=== PATIENT | male | born 1995 | race Caucasian/White ===

== ENCOUNTER 2022-12-25 16:40 | Emergency (ER) | payer MEDICAID, SELFPAY ==
[2022-12-25] VITALS (9 sets, daily range): BP systolic 123–147; BP diastolic 77–115; PULSE 79–129; RESP 16–18; TEMP 36.7; O2SAT 94–100; BMI 34.4
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
--- NOTE | 2022-12-25 16:59 | XRR_ITS ---
PROCEDURE INFORMATION: Exam: XR Chest Exam date and time: 12/25/2022 5:14 PM Age: 27 years old Clinical indication: Fever; Additional info: Fever tachycardia TECHNIQUE: Imaging protocol: Radiologic exam of the chest. Views: 1 view. COMPARISON: No relevant prior studies available. FINDINGS: Lungs: Minimal left basilar atelectasis infiltrate. The right lung is clear. Pleural spaces: Unremarkable. No pleural effusion. No pneumothorax. Heart/Mediastinum: Unremarkable. No cardiomegaly. Bones/joints: Moderate left convex scoliosis. XR/XR chest 1V portable [id number] IMPRESSION: Minimal left basilar atelectasis or infiltrate. Correlate for possible pneumonia.
--- NOTE | 2022-12-25 16:59 | CTR_ITS ---
PROCEDURE INFORMATION: Exam: CT Head Without Contrast Exam date and time: 12/25/2022 5:17 PM Age: 27 years old Clinical indication: Other: Ble numbness, weakness, fever headache TECHNIQUE: Imaging protocol: Computed tomography of the head without contrast. Radiation optimization: All CT scans at this facility use at least one of these dose optimization techniques: automated exposure control; mA and/or kV adjustment per patient size (includes targeted exams where dose is matched to clinical indication); or iterative reconstruction. REPORTING DATA: Count of CT and Cardiac NM exams in prior 12 months: This patient has received 0 known CTs and 0 known cardiac nuclear medicine studies in the 12 months prior to the current study. COMPARISON: No relevant prior studies available. RADIATION DOSE METRICS: Total DLP (mGy-cm): 302 FINDINGS: Brain: No acute infarct. No hemorrhage. Unremarkable white matter for age. No mass effect. Cerebral ventricles: No ventriculomegaly. Paranasal sinuses: No significant inflammation. No fluid levels. Mastoid air cells: Visualized mastoid air cells are well aerated. Bones/joints: Unremarkable. No acute fracture. Soft tissues: Unremarkable. CT/CT head wo con* [id number] IMPRESSION: No acute intracranial abnormality.
[2022-12-25] MEDS: morphine 4 mg/mL SDV 1 mL IVP (17:11)
[2022-12-25 17:16] LABS: Basophils % 0.2 %; Eosinophils # 0.2 10^3/uL (0.0-0.8); Eosinophils % 2.7 %; Hematocrit 42.8 % (42.0-52.0); Lymphocytes % 32.2 %; Mean Corpuscular HGB Conc 30.4 g/dL (30.0-36.0); Mean Corpuscular Hemoglobin 25.3 pg (28.0-34.0); Mean Corpuscular Volume 83.3 fl (80-94); Mean Platelet Volume 9.1 fL (7.4-10.4); Monocytes # 0.4 10^3/uL (0.2-0.9); Monocytes % 6.5 %; Neutrophils % 58.2 %; Nucleated Red Blood Cells % 0 %; Platelet Count 389 10^3/cmm (130-400); Red Blood Count 5.14 10^6/uL (4.1-5.3); Red Cell Distribution Width 15.5 % (12.1-15.1); White Blood Count 6.3 10^3/uL (4.0-10.0)
[2022-12-25] MEDS: sodium chloride 0.9% 2,190 ML 2190 ML IV (17:17)
--- NOTE | 2022-12-25 17:31 | MRR_ITS ---
PROCEDURE INFORMATION: Exam: MR Thoracic Spine Without Contrast Exam date and time: 12/25/2022 6:32 PM Age: 27 years old Clinical indication: Pain in thoracic spine; Prior surgery; Surgery date: 1-6 months; Surgery type: L spne several last 10/2022; Additional info: Back pain, loss of sensation and increased weakness, complex history of multiple surgeries and complications, TECHNIQUE: Imaging protocol: Magnetic resonance imaging of the thoracic spine without contrast. COMPARISON: MR lumbar spine wo con* [id number] 12/25/2022 6:14 PM FINDINGS: Bones/joints: The thoracic spine straightened. There are laminectomy changes present T5-T8 and at the T11-L1 levels. No suspicious marrow signal abnormality is seen. Lower thoracic Schmorl's nodes are present. There is edema like signal in the laminectomy beds likely from subacute denervation changes. Spinal cord: Suspected T2 cord signal abnormality at the T5 level and again at the T6-T7 level best seen on series 501, image 7, difficult to further assess on the axial imaging due to motion. Probable mild cord volume loss is seen at these levels. T1-T2: No significant disc bulge or herniation. No severe spinal canal stenosis. No significant neural foraminal narrowing. T2-T3: At T2-3 there is diffuse disc bulging with mild stenosis of the spinal canal. Patent neural foramen. T3-T4: T3-T4 diffuse disc bulging with moderate stenosis of the spinal canal mild narrowing of both neural foramen. T4-T5: T4-T5 right-sided paracentral focal disc protrusion is seen with mild stenosis of the spinal canal. T5-T6: T5-6 right-sided paracentral focal disc protrusion is seen abutting the ventral cord mildly narrowing the spinal canal despite laminectomy. The neural foramina are mildly narrowed. T6-T7: T6-T7 central focal disc protrusion is seen abutting the ventral cord with mild stenosis of the spinal canal despite laminectomy. The neural foramina are mildly narrowed. T7-T8: T7-T8 minimal central focal disc protrusion is seen without significant stenosis. T8-T9: T8-T9 minimal central focal disc protrusion is seen with mild stenosis of the spinal canal and bilateral neural foramen. T9-T10: T9-10 moderate narrowing of both neural foramina due to facet arthrosis. Spinal canal patent. T10-T11: T10-11 there is diffuse disc bulging and facet arthrosis with mild stenosis of the spinal canal and moderate narrowing of both neural foramina. T11-T12: At T11-12 there is a central focal disc protrusion with mild stenosis of the spinal canal despite laminectomy. T12-L1: No significant disc bulge or herniation. No severe spinal canal stenosis. No significant neural foraminal narrowing. Soft tissues: Unremarkable. Other findings: The study is degraded by motion. MR/MR thoracic spin wo con* [id number] IMPRESSION: 1. Laminectomy changes at the T5-T8 and T11-L1 levels. Moderate T3-T4 spinal canal stenosis above the surgical level with mild multilevel spinal canal narrowing at the levels of surgery, as described. 2. There is minimal suspected focal T2 cord signal abnormality at T5 and at T6-T7 suspicious for myelomalacia.
--- NOTE | 2022-12-25 17:31 | MRR_ITS ---
PROCEDURE INFORMATION: Exam: MR Lumbar Spine Without Contrast Exam date and time: 12/25/2022 6:14 PM Age: 27 years old Clinical indication: Low back pain; Prior surgery; Surgery date: 1-6 months; Surgery type: L spine several last 10/2022; Additional info: Back pain, leg numbness and weakness, history of multiple back surgeries with complications, new TECHNIQUE: Imaging protocol: Magnetic resonance imaging of the lumbar spine without contrast. COMPARISON: No relevant prior studies available. FINDINGS: Bones/joints: There are Schmorl's nodes present in the lower thoracic/upper lumbar spine without significant vertebral body height loss. The spinal alignment is near anatomic. There are laminectomy changes present at T11-12, L1 and L3-L5. No suspicious marrow signal abnormality. Spinal cord: Visualized cord, conus medullaris and cauda equina are unremarkable without compression. Nerves: There is edema like signal in the dorsal paraspinal musculature which is likely related to subacute denervation changes. T11-T12: At T11-12 there is a central focal disc protrusion with mild stenosis of the spinal canal despite laminectomy. T12-L1: At T12-L1 there is central focal disc protrusion measuring 8 mm AP by 9 mm transverse with associated moderate stenosis of the spinal canal. L1-L2: L1-L2 diffuse disc bulging with superimposed central focal disc protrusion causing severe narrowing of the spinal canal. There is also facet arthrosis on both sides with severe narrowing of both neural foramina. L2-L3: L2-L3 bilateral facet arthrosis and minimal saddle shaped disc bulging is seen without stenosis of the spinal canal. There is no significant neural foraminal narrowing. L3-L4: L3-L4 diffuse disc bulging and degenerative facet joint hypertrophy is seen with severe stenosis of the spinal canal. There is also severe narrowing of both neural foramen. 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 L4-L5: L4-L5 diffuse disc bulging with left-sided subarticular focal disc protrusion measuring 8 mm AP x 1.6 cm transverse causes severe stenosis of the spinal canal and compression of the left descending L5 nerve root. There is also severe narrowing of the left greater than right neural foramen. L5-S1: L5-S1 minimal diffuse disc bulging and facet arthrosis is seen without stenosis of the spinal canal. There is mild narrowing of the left neural foramen. Soft tissues: Unremarkable. MR/MR lumbar spine wo con* [id number] IMPRESSION: 1. Multilevel degenerative disc disease with T11-12, L1, and L3-L5 laminectomies. There is moderate T12-L1, severe L1-L2 and severe L4-L5 spinal canal stenosis present with multilevel neural foraminal narrowing, as described. 2. The left descending L5 nerve root is also compressed by disc material in the lateral recess.
[2022-12-25 17:46] LABS: NT Pro B Type Natriuretic Pept 36 pg/mL (0-125); Procalcitonin 0.02 ng/mL (0-0.5); Thyroid Stimulating Hormone 0.49 uIU/mL (0.27-4.20)
[2022-12-25 17:48] LABS: Add Urine Microscopic? YES; Bacteria Urine TRACE /hpf; Bilirubin Urine Neg (Negative); Blood Urine 2+ (Negative); Glucose Urine UA Norm (Normal); Ketones Urine 1+ (Negative); Leukocyte Esterase Urine 2+ (Negative); Mucus Urine TRACE /hpf; Nitrate Urine Negative (Negative); Protein Urine 1+ (Negative); RBC Urine 0-4 /hpf (0-2); Squamous Epithelial Cell Urine 0-4 /hpf (0-5); Urine Appearance Cloudy (CLEAR); Urine Color Yellow (Yellow); Urobilinogen Urine Norm (Negative); WBC Urine 40-55 /hpf (0-5); pH Urine 6.5 (5-7)
[2022-12-25 17:49] LABS: Add Urine Culture? Yes; Calcium Oxalate Crystals Urine 25-40 /hpf
[2022-12-25 17:57] LABS: Alanine Aminotransferase 12 U/L (0-41); Albumin Level 4.4 g/dL (3.5-5.2); Alkaline Phosphatase 80 U/L (40-130); Anion Gap 15.6 (5-19); Aspartate Amino Transferase 14 U/L (0-40); Blood Urea Nitrogen 9 mg/dL (6-20); C Reactive Protein 4.2 mg/L (0.0-4.9); Calcium 9.2 mg/dL (8.5-10.5); Carbon Dioxide 26 mmol/L (22-29); Chloride 102 mmol/L (98-107); Globulin 3.8 g/dL (1.3-4.6); Glomerular Filtration Rate 196.6 mL/min (90-130); Glucose 90 mg/dL (65-115); Osmolality Calculated 288 mOsm/kg (285-295); Potassium 3.6 mmol/L (3.5-5.1); Sodium 140 mmol/L (136-145); Total Bilirubin 0.6 mg/dL (0.15-1.2); Total Protein 8.2 g/dL (6.6-8.7)
[2022-12-25 18:05] LABS: SARS Covid-2 Antigen negative (Negative)
--- NOTE | 2022-12-25 18:09 | PC.NURSE ---
PT taken to MRI @1809
[2022-12-25] MEDS: HYDROmorphone 1 mg/mL INJ 1 mL IVP (19:53)
--- NOTE | 2023-01-12 15:15 | DCPLANNER ---
late entry - patient called due to no primary care physician - no answer at this time.
== END 2022-12-25 22:09 | disposition short-term general hospital (02) ==
PROVIDERS: Emergency Medicine; Emergency Provider Emergency Medicine
DX: M48.061 Spinal stenosis, lumbar region without neurogenic claudication (principal); M48.04 Spinal stenosis, thoracic region; Z20.822 Contact with and (suspected) exposure to COVID-19
CPT/HCPCS: 36415; 70450; 71045; 72146; 72148; 80053; 81001; 83605; 83880; 84145; 84443; 85025; 86140; 87040; 87086; 87426; 96361; 96374; 96375; 99285; J1170; J2270; J7030

== ENCOUNTER 2023-01-02 20:32 | Emergency (ER) | payer MEDICAID, SELFPAY ==
[2023-01-02 20:33] VITALS: BP 159/107; PULSE 98; RESP 18; TEMP 37.1; O2SAT 100; BMI 33.7
[2023-01-02 20:40] VITALS: BP 159/107; PULSE 100; RESP 16; O2SAT 100
--- NOTE | 2023-01-02 20:40 | ED_ITS ---
HPI - Abdominal Pain General: Chief Complaint: Urogenital-Male Stated Complaint: possible UTI Time Seen by Provider: 01/02/23 20:33 Source: patient and EMS Mode of arrival: EMS Limitations: no limitations History of Present Illness: 27-year-old male who has had extensive history and surgeries to his low back he had recently was admitted at [facility] this week he states he supposed to follow-up with a spine surgeon he has had a Nguyen for over a month he feels like it is getting blocked with sediment and has had little output having some pain he denies any fevers states the pain is suprapubic in nature denies any increased weakness or increased back pain at this point. Associated Symptoms: Denies chills, diarrhea, fever(s), nausea and vomiting Review of Systems Const: Denies: fever(s), chills, body aches or change in appetite ENMT: Denies: throat pain or dental pain Card: Denies: chest pain Resp: Denies: dyspnea GI: Reports: abdominal pain; Denies: nausea, vomiting or diarrhea Musc: Denies: neck pain Skin/Breast: Denies: rash Neuro: Denies: headache(s) Physical Exam Const: COMMON NORMALS: patient oriented x3 HENMT: COMMON NORMALS: normocephalic and atraumatic HEAD & SCALP: norm ocephalic and atraumatic Eye: COMMON NORMALS: conjunctivae normal CONJUNCTIVA: Yes conjunctivae normal Neck/C-Spine: COMMON NORMALS: supple Lymph: LYMPHATIC: no lymphadenopathy noted Chest: COMMONS NORMALS: normal inspection of the chest and normal palpation of entire chest wall Resp: COMMON NORMALS: normal respiratory effort and clear to auscultation bilaterally EFFORT & INSPECTION: Yes able to speak in complete sentences AUSCULTATION: clear to auscultation bilaterally Cardio: COMMON NORMALS: regular rate and regular rhythm RATE: regular rate RHYTHM: regular rhythm GI: OTHER: Nguyen in place some mild lower abdominal tenderness no rebound tenderness no distention : COMMON NORMALS: Yes no CVA tenderness BLADDER/KIDNEY EXAM: Yes no CVA tenderness Back/Pelvis: COMMON NORMALS: no CVA tenderness Extremity: COMMON NORMALS: normal to inspection Neuro: COMMON NORMALS: patient oriented x3 Psych: COMMON NORMALS: mental status grossly normal Skin: COMMON NORMALS: no rashes or lesions noted GENERAL SKIN EXAM: no rashes or lesions noted Course Vital Signs: Vital signs: Vital Signs Temperature 98.8 F 01/02/23 20:33 Pulse Rate 100 01/02/23 22:04 Respiratory Rate 18 01/02/23 22:04 Blood Pressure 141/88 01/02/23 22:04 Pulse Oximetry 100 01/02/23 22:04 Oxygen Delivery Me thod Room Air 01/02/23 22:04 MDM - Abdominal Pain Medical Decision Making Patient presents here with abdominal pain pain at the Nguyen has Nguyen been in for a month he does have a slight UTI his abdominal exam is benign here his white count is normal no signs of acute surgical abdomen he feels improved here he is stable for discharge he is to follow-up with PCP and return if worsening he understands agrees to plan. Medical Records I reviewed the patient's medical records. Lab Data I reviewed the patient's lab results. 01/02/23 20:43 01/02/23 20:43 Labs/Radiology: Laboratory Results WBC 7.8 10^3/uL (4.0-10.0) 01/02/23 20:43 RBC 5.74 10^6/uL (4.1-5.3) H 01/02/23 20:43 Hgb 14.6 g/dL (11.7-16.6) 01/02/23 20:43 Hct 46.0 % (42.0-52.0) 01/02/23 20:43 MCV 80.1 fl (80-94) 01/02/23 20:43 MCH 25.4 pg (28.0-34.0) L 01/02/23 20:43 MCHC 31.7 g/dL (30.0-36.0) 01/02/23 20:43 RDW 15.4 % (12.1-15.1) H 01/02/23 20:43 Plt Count 380 10^3/cmm (130-400) 01/02/23 20:43 MPV 9.0 fL (7.4-10.4) 01/02/23 20:43 Neut % (Auto) 51.3 % 01/02/23 20:43 Lymph % (Auto) 37.8 % 01/02/23 20:43 [place] % (Auto) 8.3 % 01/02/23 20:43 Eos % (Auto) 1.9 % 01/02/23 20:43 Baso % (Auto) 0.3 % 01/02/23 20:43 Neut # (Auto) 4.01 10^3/uL (1.8-7.7) 01/02/23 20:43 Lymph # (Auto) 3.0 10^3/uL (0.8-4.8) 01/02/23 20:43 [place] # (Auto) 0.7 10^3/uL (0.2-0.9) 01/02/23 20:43 Eos # (Auto) 0.2 10^3/uL (0.0-0.8) 01/02/23 20:43 Baso # (Auto) 0.0 10^3/uL (0.0-0.1) 01/02/23 20:43 Nucleated RBC % (auto) 0 % 01/02/23 20:43 Nucleated RBCs # 0.0 /100WBC 01/02/23 20:43 Sodium 136 mmol/L (136-145) 01/02/23 20:43 Potassium 3.6 mmol/L (3.5-5.1) 01/02/23 20:43 Chloride 96 mmol/L (98-107) L 01/02/23 20:43 Carbon Dioxide 23 mmol/L (22-29) 01/02/23 20:43 Anion Gap 20.6 (5-19) H 01/02/23 20:43 BUN 8 mg/dL (6-20) 01/02/23 20:43 Creatinine 0.4 mg/dL (0.7-1.2) L 01/02/23 20:43 GFR Calculation 254.3 mL/min (90-130) H 01/02/23 20:43 Glucose 79 mg/dL (65-115) 01/02/23 20:43 Calculated Osmolality 279 mOsm/kg (285-295) L 01/02/23 20:43 Calcium 10.1 mg/dL (8.5-10.5) 01/02/23 20:43 Total Bilirubin 1.0 mg/dL (0.15-1.2) 01/02/23 20:43 AST 16 U/L (0-40) 01/02/23 20:43 ALT 13 U/L (0-41) 01/02/23 20:43 Alkaline Phosphatase 84 U/L (40-130) 01/02/23 20:43 Total Protein 8.6 g/dL (6.6-8.7) 01/02/23 20:43 Albumin 4.7 g/dL (3.5-5.2) 01/02/23 20:43 Globulin 3.9 g/dL (1.3-4.6) 01/02/23 20:43 Lipase 29 U/L (13-60) 01/02/23 20:43 Urine Color Colorless (Yellow) 01/02/23 21:05 Urine Appearance Hazy (CLEAR) A 01/02/23 21:05 Urine pH 7 (5-7) 01/02/23 21:05 Ur Specific [place] 1.010 (1.005-1.030) 01/02/23 21:05 Urine Protein Neg (Negative) 01/02/23 21:05 Urine Glucose (UA) Norm (Normal) 01/02/23 21:05 Urine Ketones 1+ (Negative) H 01/02/23 21:05 Urine Blood 3+ (Negative) H 01/02/23 21:05 Urine Nitrate Negative (Negative) 01/02/23 21:05 Urine Bilirubin Neg (Negative) 01/02/23 21:05 Urine Urobilinogen Neg mg/dL (Negative) 01/02/23 21:05 Ur Leukocyte Esterase 2+ (Negative) H 01/02/23 21:05 Urine RBC 5-10 /hpf (0-2) H 01/02/23 21:05 Urine WBC 10-15 /hpf (0-5) H 01/02/23 21:05 Ur Squamous Epith Cells None /hpf (0-5) 01/02/23 21:05 Amorphous Sediment Not Reportable 01/02/23 21:05 Urine Bacteria 2+ /hpf (NONE) H 01/02/23 21:05 Urine Yeast Trace /hpf 01/02/23 21:05 Discharge Plan Discharge Patient Disposition: Home Clinical Impression: Urinary tract infection Condition: Stable Prescriptions: New cephalexin 500 mg capsule 500 mg PO TID 7 Days Qty: 21 0RF Discharge Orders: Discharge ED (Routine); Ordered 01/02/23 Ordered By: Puneet Wang Discharge Diet: Advance as tolerated Discharge Activity: Resume usual activity Patient Instructions: Urinary Tract Infection in Men (ED), Abdominal Pain (ED) Coding Level of Care Code ED 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
[2023-01-02] MEDS: sodium chloride 0.9% 1,000 ML 999 ML IV (20:44)
[2023-01-02 20:48] VITALS: RESP 16
[2023-01-02 20:48] LABS: Basophils % 0.3 %; Eosinophils # 0.2 10^3/uL (0.0-0.8); Eosinophils % 1.9 %; Hemoglobin 14.6 g/dL (11.7-16.6); Lymphocytes % 37.8 %; Mean Corpuscular HGB Conc 31.7 g/dL (30.0-36.0); Mean Corpuscular Hemoglobin 25.4 pg (28.0-34.0); Mean Corpuscular Volume 80.1 fl (80-94); Monocytes # 0.7 10^3/uL (0.2-0.9); Monocytes % 8.3 %; Neutrophils # 4.01 10^3/uL (1.8-7.7); Neutrophils % 51.3 %; Nucleated Red Blood Cells % 0 %; Platelet Count 380 10^3/cmm (130-400); Red Blood Count 5.74 10^6/uL (4.1-5.3); Red Cell Distribution Width 15.4 % (12.1-15.1); White Blood Count 7.8 10^3/uL (4.0-10.0)
[2023-01-02] MEDS: HYDROmorphone 1 mg/mL INJ 1 mL IVP (20:48)
[2023-01-02] MEDS: ondansetron 2 mg/ML SDV 2 mL 4 MG IVP (20:48)
[2023-01-02 21:08] LABS: Alanine Aminotransferase 13 U/L (0-41); Albumin Level 4.7 g/dL (3.5-5.2); Alkaline Phosphatase 84 U/L (40-130); Anion Gap 20.6 (5-19); Aspartate Amino Transferase 16 U/L (0-40); Blood Urea Nitrogen 8 mg/dL (6-20); Calcium 10.1 mg/dL (8.5-10.5); Carbon Dioxide 23 mmol/L (22-29); Chloride 96 mmol/L (98-107); Globulin 3.9 g/dL (1.3-4.6); Glomerular Filtration Rate 254.3 mL/min (90-130); Glucose 79 mg/dL (65-115); Lipase 29 U/L (13-60); Osmolality Calculated 279 mOsm/kg (285-295); Potassium 3.6 mmol/L (3.5-5.1); Sodium 136 mmol/L (136-145); Total Protein 8.6 g/dL (6.6-8.7)
[2023-01-02 21:32] LABS: Add Urine Microscopic? YES; Bilirubin Urine Neg (Negative); Blood Urine 3+ (Negative); Glucose Urine UA Norm (Normal); Ketones Urine 1+ (Negative); Leukocyte Esterase Urine 2+ (Negative); Nitrate Urine Negative (Negative); Protein Urine Neg (Negative); Urine Appearance Hazy (CLEAR); Urine Color Colorless (Yellow); Urobilinogen Urine Neg (Negative); pH Urine 7 (5-7)
[2023-01-02 21:34] LABS: Add Urine Culture? Yes; Bacteria Urine 2+ /hpf
[2023-01-02] MEDS: cefTRIAXone 1,000 MG in sodium chloride 0.9% (plus) 50 ML 100 MG IV (21:46)
[2023-01-02 22:04] VITALS: BP 141/88; PULSE 100; RESP 18; O2SAT 100
[2023-01-02 22:48] VITALS: BP 133/92; RESP 18
== END 2023-01-02 22:49 | disposition home or self-care (01) ==
PROVIDERS: Emergency Provider Emergency Medicine
DX: N39.0 Urinary tract infection, site not specified (principal)
CPT/HCPCS: 51702; 80053; 81001; 83690; 85025; 87086; 96365; 96375; 99284; J0696; J1170; J2405; J7030

== ENCOUNTER 2023-01-11 06:50 | Emergency (ER) | payer MEDICAID, SELFPAY ==
[2023-01-11 06:55] VITALS: BP 167/103; PULSE 101; RESP 16; TEMP 36.7; O2SAT 94; BMI 33.7
--- NOTE | 2023-01-11 07:17 | W.ED.BACK ---
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 These were reportedly at [facility] in [facility]. Patient had been doing better with his home physical therapy and reports improved motor function, strength, and sensory until waking up this morning when he identifies essentially from the umbilicus down having loss of feeling and increased back pain which feels very similar to when he experienced his complications. He also has complaints of several skin sores as well as output from his holden. This course is almost identical to when he was seen here on 12/25 and transferred to [facility]. According to patient they are wanting to do repeat surgery on a non-emergent/outpatient basis for stenosis. MD elicited complaint: back pain Pertinent past history: prior back pain and back surgery Onset (ago): day(s) Timing: constant Similar Symptoms Previously: Yes Location: thoracic spine Exacerbating factors: none Relieving factors: none Associated symptoms: Deny abdominal pain, chills, fatigue or fever(s) Work related injury: No Review of Systems Const: Denies: fever(s), chills, body aches, fatigue or malaise Card: Denies: chest pain Resp: Denies: dyspnea GI: Denies: abdominal pain : Reports: other (reports decreased output in holden); Denies: flank pain Musc: Reports: back pain; Denies: neck pain, extremity pain, extremity swelling, joint pain or joint swelling Skin/Breast: Reports: other (reports several skin sores to L foot, penis/scrotum, buttocks/sacrum ) Neuro: Reports: other (chronic bilateral LE decreased motor/sensory function); Denies: headache(s) Physical Exam Const: COMMON NORMALS: no acute distress, average body habitus, patient oriented x3, no limitations, alert and well nourished GENERAL APPEARANCE: cooperative ORIENTATION/CONSCIOUSNESS: Yes awake, Yes oriented to person, Yes oriented to place and Yes oriented to time HENMT: COMMON NORMALS: normocephalic and atraumatic HEAD & SCALP: normal to inspection, normocephalic and atraumatic Neck/C-Spine: COMMON NORMALS: full ROM and no meningeal signs GENERAL: Yes normal visual inspection Resp: COMMON NORMALS: normal respiratory effort and clear to auscultation bilaterally AUSCULTATION: clear to auscultation bilaterally Cardio: COMMON NORMALS: regular rate and regular rhythm RATE: regular rate RHYTHM: regular rhythm GI: COMMON NORMALS: Normal to inspection, nondistended, normoactive bowel sounds present, Soft to palpation and non-tender INSPECTION: Yes normal to inspection AUSCULTATION: Yes normoactive bowel sounds PALPATION: Yes Soft to palpation RECTAL EXAM: Yes normal sphincter tone : COMMON NORMALS: Yes no CVA tenderness BLADDER/KIDNEY EXAM: Yes no CVA tenderness OTHER: erythema/skin irritation starting at meatus; he also has a smaller sore starting on his anterior R scrotum; localized/no abscess Back/Pelvis: COMMON NORMALS: no CVA tenderness THORACIC SPINE/UPPER BACK: Yes thoracic spinal tenderness, No paraspinal muscle tenderness and No paraspinal muscle spasm LUMBAR SPINE/LOWER BACK: No lumbar spinal tenderness, No paraspinal muscle tenderness and No paraspinal muscle spasm PELVIS: No sciatic notch tenderness SACRUM: no tenderness COCCYX: no tenderness OTHER: previous surgical scars well healed Extremity: COMMON NORMALS: capillary refill normal, no joint enlargement, no clubbing, cyanosis or edema, no calf tenderness and no pedal edema NARRATIVE EXTREMITY EXAM: atrophy of bilateral LEs that he states is normal; bilateral LE are hyporeflexive; he has diffuse weakness and sensory loss-reports acute on chronic; he has localized skin infections involving L great and middle toes-no diffuse erythema/cellulitis; he has two stage II sacral/buttock ulcers present DP/PT pulses bilaterally are easily felt; legs are warm to the touch with brisk cap refill Neuro: COMMON NORMALS: patient oriented x3 SENSORIUM/ORIENTATION: Yes alert, Yes oriented to person, Yes oriented to place and Yes oriented to time MENINGEAL SIGNS: Yes no meningeal signs GAIT: Yes Unable to assess gait SENSORY EXAM: Yes sensory level loss detected MOTOR EXAM: Abnormal motor strength present and Abnormal muscle tone present Skin: NARRATIVE SKIN EXAM: see documentation elsewhere Course Consultations: Consultation #1: Dr. Vergara- (Dr. Wang contacted him) he will graciously see patient in his office Vital Signs: Vital signs: Vital Signs Temperature 98.0 F 01/11/23 06:55 Pulse Rate 100 01/11/23 09:08 Respiratory Rate 18 01/11/23 09:08 Blood Pressure 163/89 01/11/23 09:08 Pulse Oximetry 95 01/11/23 09:08 Oxygen Delivery Me thod Room Air 01/11/23 09:08 MDM - Back Pain/Injury Medical Decision Making Patient is a 27-year-old male with a very complex clinical course involving multiple back surgeries leaving him with chronic motor/sensory deficits/neurogenic bladder requiring chronic holden. He was seen here on 12/25 for almost identical presentation and transferred to [facility]. According to [facility] documentation, hospitalist consulted neurosurgeon Dr. Nahun Thomas but no notes from neuro could be generated. According to patient they spoke about surgery on an outpatient basis for the spinal stenosis found on MRI imaging. His physical exam is difficult to ascertain between chronic versus acute deficits. Rectal tone is preserved. I spoke to Dr. Wang in regards to patient who did not feel we needed to obtain repeat MRI imaging as this was just completed 2-3 weeks ago due to identical complaints. He spoke to Dr. Vergara who graciously follow up with patient in office. His holden appears to be draining normally-he was bladder scanned and catheter flushed for confirmation. He has several sores starting on his left toes, around penile meatus, right scrotum, as well as the start of sacral/buttock ulcers. Possibility of staph wounds given recent hospitalization. Will place on topical/oral abx for these. No fevers. Normal white count. He states he has no insurance and is in the process of trying to obtain his [place] Medicaid. Patient is going to need wound care for the sacral/buttock ulcers as patient is wheelchair/bed bound and I anticipate these worsenign without proper care. Referral has been placed for this. He ultimately needs home health as well. All of this very complicated. He does not want to go to custodial and wants to stay at home. I spoke to case management who will speak to patient and try to help him with his Medicaid and will also give him information in regards to financial accounting analyst paperwork that he can start. She will coordinate him and getting him set up with a primary care provider who then can refer him for home health services get him set up with wound care as well as neurosurgery/Dr. Vergara. Labs today showing normal white count. Normal kidney functions. UA looks infected but last two cultures were negative. He is already taking Cipro for the UTI diagnosed on last visit (culture was subsequently negative). Recommend he keep taking as this would pseudomonas coverage for the wounds on his feet. Strict return to ED precautions given. Dr. Wang consulted multiple times on patient during his stay and he agrees with work up today/current plan for patient. Labs 01/11/23 07:50 01/11/23 07:50 Laboratory Results WBC 6.9 10^3/uL (4.0-10.0) 01/11/23 07:50 RBC 4.68 10^6/uL (4.1-5.3) 01/11/23 07:50 Hgb 11.9 g/dL (11.7-16.6) 01/11/23 07:50 Hct 38.6 % (42.0-52.0) L 01/11/23 07:50 MCV 82.5 fl (80-94) 01/11/23 07:50 MCH 25.4 pg (28.0-34.0) L 01/11/23 07:50 MCHC 30.8 g/dL (30.0-36.0) 01/11/23 07:50 RDW 15.7 % (12.1-15.1) H 01/11/23 07:50 Plt Count 277 10^3/cmm (130-400) 01/11/23 07:50 MPV 9.4 fL (7.4-10.4) 01/11/23 07:50 Neut % (Auto) 68.6 % 01/11/23 07:50 Lymph % (Auto) 20.7 % 01/11/23 07:50 [place] % (Auto) 5.1 % 01/11/23 07:50 Eos % (Auto) 5.2 % 01/11/23 07:50 Baso % (Auto) 0.3 % 01/11/23 07:50 Neut # (Auto) 4.70 10^3/uL (1.8-7.7) 01/11/23 07:50 Lymph # (Auto) 1.4 10^3/uL (0.8-4.8) 01/11/23 07:50 Amelia # (Auto) 0.4 10^3/uL (0.2-0.9) 01/11/23 07:50 Eos # (Auto) 0.4 10^3/uL (0.0-0.8) 01/11/23 07:50 Baso # (Auto) 0.0 10^3/uL (0.0-0.1) 01/11/23 07:50 Nucleated RBC % (auto) 0 % 01/11/23 07:50 Nucleated RBCs # 0.0 /100WBC 01/11/23 07:50 Sodium 137 mmol/L (136-145) 01/11/23 07:50 Potassium 3.6 mmol/L (3.5-5.1) 01/11/23 07:50 Chloride 100 mmol/L (98-107) 01/11/23 07:50 Carbon Dioxide 26 mmol/L (22-29) 01/11/23 07:50 Anion Gap 14.6 (5-19) 01/11/23 07:50 BUN 8 mg/dL (6-20) 01/11/23 07:50 Creatinine 0.5 mg/dL (0.7-1.2) L 01/11/23 07:50 GFR Calculation 196.6 mL/min (90-130) H 01/11/23 07:50 Glucose 100 mg/dL (65-115) 01/11/23 07:50 Calculated Osmolality 282 mOsm/kg (285-295) L 01/11/23 07:50 Calcium 9.2 mg/dL (8.5-10.5) 01/11/23 07:50 Total Bilirubin 0.5 mg/dL (0.15-1.2) 01/11/23 07:50 AST 18 U/L (0-40) 01/11/23 07:50 ALT 11 U/L (0-41) 01/11/23 07:50 Alkaline Phosphatase 63 U/L (40-130) 01/11/23 07:50 C-Reactive Protein 107.4 mg/L (0.0-4.9) H 01/11/23 07:50 Total Protein 7.7 g/dL (6.6-8.7) 01/11/23 07:50 Albumin 3.8 g/dL (3.5-5.2) 01/11/23 07:50 Globulin 3.9 g/dL (1.3-4.6) 01/11/23 07:50 Urine Color Yellow (Yellow) 01/11/23 07:56 Urine Appearance Hazy (CLEAR) A 01/11/23 07:56 Urine pH 5 (5-7) 01/11/23 07:56 Ur Specific [place] 1.030 (1.005-1.030) 01/11/23 07:56 Urine Protein Trace (Negative) 01/11/23 07:56 Urine Glucose (UA) Norm (Normal) 01/11/23 07:56 Urine Ketones Negative (Negative) 01/11/23 07:56 Urine Blood Neg (Negative) 01/11/23 07:56 Urine Nitrate Negative (Negative) 01/11/23 07:56 Urine Bilirubin 1+ (Negative) H 01/11/23 07:56 Urine Urobilinogen Norm mg/dL (Negative) 01/11/23 07:56 Ur Leukocyte Esterase 2+ (Negative) H 01/11/23 07:56 Urine RBC 0-4 /hpf (0-2) H 01/11/23 07:56 Urine WBC 55-80 /hpf (0-5) H 01/11/23 07:56 Ur Squamous Epith Cells 0-4 /hpf (0-5) H 01/11/23 07:56 Amorphous Sediment Not Reportable 01/11/23 07:56 Urine Bacteria Trace /hpf (NONE) 01/11/23 07:56 Urine Mucus 1+ /hpf 01/11/23 07:56 Urine Yeast Trace /hpf 01/11/23 07:56 Discharge Plan Discharge Patient Disposition: Home Clinical Impression: Back pain with history of spinal surgery, Ulcer of buttock, Chronic indwelling Holden catheter, Multiple wounds of skin Cellulitis of toe Qualifiers: Laterality: left Qualified Code(s): L03.032 - Cellulitis of left toe Sacral ulcer Qualifiers: Non-pressure ulcer stage: limited to breakdown of skin Qualified Code(s): L98.421 - Non-pressure chronic ulcer of back limited to breakdown of skin Condition: Stable Prescriptions: New doxycycline monohydrate 100 mg capsule 100 mg PO Q12H 10 Days Qty: 20 0RF mupirocin 2 % ointment 1 applic topical BID Qty: 15 0RF Discharge Orders: Discharge ED (Routine); Ordered 01/11/23 Ordered By: Viri Madrid Activity Restrictions/Additional Instructions: As we discussed we will have case management work with you diligently to help you get your [place] Medicaid. They can also speak to you in regards to financial accounting analyst paperwork for the hospital. You are going to need a multidisciplinary approach to your conditions including a primary care provider, wound care, and spinal/neurosurgeon. We have placed referrals for these and again case management should be working with you to get the set up. Primary care can then set you up for in-home physical therapy. You need to keep ulcers on your sacrum/buttock clean, dry, and dressed. You need to change positions often during the day to avoid chronic pressure on these areas. I have written you for antibiotics for the sores developing on your toes and around your penis/scrotum. You also will have a topical cream you can apply. Keep wounds clean with warm water/gentle soap and pat dry. You need to seek medical re-evaluation if wounds continue to worsen over the next 48 hours despite antibiotics or if you begin noticing fevers or worsening redness/swelling. Coding Level of Care Code ED Work From Home for Karlos Mathis
--- NOTE | 2023-01-11 07:33 | PC.NURSE ---
PT HAS SEVERAL SUPERFICIAL WOUND. MUSCLE/ADIPOSE TISSUE NOT VISIBLE. PARTIAL LAYER OF SKIN MISSING IN WOUNDS. PT HAS THESE WOUND ON PENIS, BILAT FEET, BUTTOCK, AND BACK.
[2023-01-11 08:07] LABS: Basophils % 0.3 %; Eosinophils # 0.4 10^3/uL (0.0-0.8); Eosinophils % 5.2 %; Hematocrit 38.6 % (42.0-52.0); Hemoglobin 11.9 g/dL (11.7-16.6); Lymphocytes # 1.4 10^3/uL (0.8-4.8); Lymphocytes % 20.7 %; Mean Corpuscular HGB Conc 30.8 g/dL (30.0-36.0); Mean Corpuscular Hemoglobin 25.4 pg (28.0-34.0); Mean Corpuscular Volume 82.5 fl (80-94); Mean Platelet Volume 9.4 fL (7.4-10.4); Monocytes # 0.4 10^3/uL (0.2-0.9); Monocytes % 5.1 %; Neutrophils % 68.6 %; Nucleated Red Blood Cells % 0 %; Platelet Count 277 10^3/cmm (130-400); Red Blood Count 4.68 10^6/uL (4.1-5.3); Red Cell Distribution Width 15.7 % (12.1-15.1); White Blood Count 6.9 10^3/uL (4.0-10.0)
[2023-01-11 08:26] LABS: Alanine Aminotransferase 11 U/L (0-41); Albumin Level 3.8 g/dL (3.5-5.2); Alkaline Phosphatase 63 U/L (40-130); Anion Gap 14.6 (5-19); Aspartate Amino Transferase 18 U/L (0-40); Blood Urea Nitrogen 8 mg/dL (6-20); C Reactive Protein 107.4 mg/L (0.0-4.9); Calcium 9.2 mg/dL (8.5-10.5); Carbon Dioxide 26 mmol/L (22-29); Chloride 100 mmol/L (98-107); Globulin 3.9 g/dL (1.3-4.6); Glomerular Filtration Rate 196.6 mL/min (90-130); Glucose 100 mg/dL (65-115); Osmolality Calculated 282 mOsm/kg (285-295); Potassium 3.6 mmol/L (3.5-5.1); Sodium 137 mmol/L (136-145); Total Bilirubin 0.5 mg/dL (0.15-1.2); Total Protein 7.7 g/dL (6.6-8.7)
[2023-01-11 08:56] LABS: Blood Urine Neg (Negative); Glucose Urine UA Norm (Normal); Ketones Urine Negative (Negative); Protein Urine Trace (Negative); Urine Appearance Hazy (CLEAR); Urine Color Yellow (Yellow); pH Urine 5 (5-7)
[2023-01-11 08:57] LABS: Add Urine Culture? Yes; Add Urine Microscopic? YES; Bacteria Urine TRACE /hpf; Bilirubin Urine 1+ (Negative); Leukocyte Esterase Urine 2+ (Negative); Mucus Urine 1+ /hpf; Nitrate Urine Negative (Negative); RBC Urine 0-4 /hpf (0-2); Squamous Epithelial Cell Urine 0-4 /hpf (0-5); Urobilinogen Urine Norm (Negative); WBC Urine 55-80 /hpf (0-5)
[2023-01-11] MEDS: fluconazole 100 mg Tablet 150 MG PO (09:07)
[2023-01-11 09:08] VITALS: BP 163/89; PULSE 100; RESP 18; O2SAT 95
--- NOTE | 2023-01-11 09:23 | DCPLANNER ---
Addendum entered by Jenn Agudelo 01/13/23 09:05: software engineering project manager received the following message from the wound care clinic regarding follow up appointment: Pt stated that he wants to wait on a appt till his insurance status is straighten out. Told pt to call for an appt at that time. Thank you Original Note: software engineering project manager was triggered to see patient due to no primary care physician. software engineering project manager gave patient the phone number to [facility] where patient can apply for a sliding scale, to get established with a primary care physician. software engineering project manager also called Antonieta with patient financial services, to help patient with his medicaid application, was transferred into room to speak with patient about his application.
[2023-01-11 10:20] VITALS: BP 123/72; PULSE 96; RESP 16; O2SAT 97
[2023-01-11 10:21] VITALS: BP 123/72; PULSE 97; RESP 16; O2SAT 96
--- NOTE | 2023-01-11 11:57 | DCPLANNER ---
Addendum entered by Jenn Agudelo 02/23/23 09:36: Patient did not attend appointment at ortho. Addendum entered by Jenn Agudelo 01/13/23 09:10: Patient has a follow up appointment scheduled for 02.21.23 at 1:[address] Vergara at ortho. Addendum entered by Jenn Agudelo 01/13/23 09:09: client development manager received the following message from the ortho clinic regarding follow up appointment: patient scheduled for 02/21 w/ dr vergara - pt is aware - he is working on getting medicaid and will call us back to rs if he still doesn't have insurance by appt time Addendum entered by Jenn Agudelo 01/13/23 09:08: client development manager received the following message from the wound care clinic regarding following up appointment: Pt stated that he wants to wait on a appt till his insurance status is straighten out. Told pt to call for an appt at that time. Thank you Original Note: client development manager had message to schedule a follow up appointment for patient with wound care and ortho. client development manager sent patients information to the both the front office staff at wound care and ortho clinic. Patients information will be printed and reviewed, clinics will call patient with appointment information.
== END 2023-01-11 10:23 | disposition home or self-care (01) ==
PROVIDERS: Emergency Provider Physician Assistant
DX: M54.9 Dorsalgia, unspecified (principal); L98.419 Non-pressure chronic ulcer of buttock with unspecified severity; T14.8XXA Other injury of unspecified body region, initial encounter; L03.032 Cellulitis of left toe; L98.421 Non-pressure chronic ulcer of back limited to breakdown of skin; S31.30XA Unspecified open wound of scrotum and testes, initial encounter; X58.XXXA Exposure to other specified factors, initial encounter
CPT/HCPCS: 36415; 80053; 81001; 85025; 86140; 87040; 87086; 99283

== ENCOUNTER 2023-01-25 22:49 | Emergency (ER) | payer BC, MEDICAID, SELFPAY ==
[2023-01-25 22:55] VITALS: BP 141/86; PULSE 119; RESP 16; TEMP 36.6; O2SAT 99; BMI 36.5
--- NOTE | 2023-01-25 23:02 | CTR_ITS ---
PROCEDURE INFORMATION: Exam: CT Abdomen And Pelvis With Contrast Exam date and time: 01/25/2023 11:26 PM Age: 27 years old Clinical indication: Abdominal pain; Generalized; Prior surgery; Surgery date: 6+ months; Surgery type: Spine surgeries - paraplegic; Additional info: Abd pain TECHNIQUE: Imaging protocol: Computed tomography of the abdomen and pelvis with contrast. Radiation optimization: All CT scans at this facility use at least one of these dose optimization techniques: automated exposure control; mA and/or kV adjustment per patient size (includes targeted exams where dose is matched to clinical indication); or iterative reconstruction. Contrast material: OMNI 350; Contrast volume: 100 ml; Contrast route: INTRAVENOUS (IV); REPORTING DATA: Count of CT and Cardiac NM exams in prior 12 months: This patient has received [address] and 0 known cardiac nuclear medicine studies in the 12 months prior to the current study. COMPARISON: MR thoracic spin wo con* [id number] 12/25/2022 6:32 PM RADIATION DOSE METRICS: Total DLP (mGy-cm): 884.64 FINDINGS: Lungs: Left lower lobe atelectasis. Liver: Hepatic steatosis. Gallbladder and bile ducts: Normal. No calcified stones. No ductal dilation. Pancreas: Normal. No ductal dilation. Spleen: Normal. No splenomegaly. Adrenal glands: Normal. No mass. Kidneys and ureters: Normal. No hydronephrosis. Stomach and bowel: Prominent fluid in the stomach and small bowel may reflect a gastroenteritis. Constipation. Appendix: No evidence of appendicitis. Intraperitoneal space: Unremarkable. No free air. No significant fluid collection. Vasculature: Unremarkable. No abdominal aortic aneurysm. Lymph nodes: Unremarkable. No enlarged lymph nodes. Urinary bladder: Nguyen catheter in the urinary bladder with air presumed iatrogenic. Reproductive: Unremarkable as visualized. Bones/joints: Lumbar spine postsurgical changes. Soft tissues: Unremarkable. CT/CT abdomen pelvis w con* [id number] IMPRESSION: 1. Negative for focal acute inflammatory process in the abdomen or pelvis. 2. Left lower lobe atelectasis. 3. Hepatic steatosis. 4. Prominent fluid in the stomach and small bowel may reflect a gastroenteritis. 5. Nguyen catheter in the urinary bladder with air presumed iatrogenic. 6. Lumbar spine postsurgical changes. 7. Constipation.
--- NOTE | 2023-01-25 23:03 | ED_ITS ---
HPI - Abdominal Pain General: Chief Complaint: Abdominal Pain Stated Complaint: abd pain Time Seen by Provider: 01/25/23 23:00 Source: patient Mode of arrival: ambulatory Limitations: no limitations History of Present Illness: 27-year-old male has extensive history of back surgeries wheelchair-bound states that he has been having abdominal pain throughout the day states he felt like he cannot pass gas he had history of hernias worried about bowel obstruction he had no vomiting denies any diarrhea he rates his pain a 6 out of 10 currently denies any fevers. Associated Symptoms: Denies chills, diarrhea, fever(s), nausea and vomiting Review of Systems Const: Denies: fever(s) or chills ENMT: Denies: throat pain or dental pain Card: Denies: chest pain Resp: Denies: dyspnea GI: Reports: abdominal pain; Denies: nausea, vomiting or diarrhea Musc: Denies: neck pain Skin/Breast: Denies: rash Neuro: Denies: headache(s) Physical Exam Const: COMMON NORMALS: no acute distress, patient oriented x3 and healthy appearing HENMT: COMMON NORMALS: normocephalic and atraumatic HEAD & SCALP: normocephalic and atraumatic Neck/C-Spine: COMMON NORMALS: full ROM and supple Chest: COMMONS NORMALS: normal inspection of the chest and normal palpation of entire chest wall Resp: COMMON NORMALS: normal respiratory effort, No retractions, No use of ac cessory muscles and clear to auscultation bilaterally AUSCULTATION: clear to auscultation bilaterally Cardio: COMMON NORMALS: regular rate, regular rhythm and No murmurs present (Cardio) RATE: regular rate RHYTHM: regular rhythm GI: COMMON NORMALS: Normal to inspection, nondistended, normoactive bowel sounds present, Soft to palpation and no masses PALPATION: Yes Soft to palpation OTHER: diffuse tenderness Extremity: COMMON NORMALS: normal to inspection and full ROM Neuro: COMMON NORMALS: patient oriented x3, moves all extremities and no focal motor deficits Psych: COMMON NORMALS: mental status grossly normal, Normal thought process present and cooperative THOUGHT PROCESS: Normal thought process present Skin: COMMON NORMALS: no rashes or lesions noted and no wounds GENERAL SKIN EXAM: no rashes or lesions noted Course Vital Signs: Vital signs: Vital Signs Temperature 97.8 F 01/25/23 22:55 Pulse Rate 108 H 01/26/23 00:30 Respiratory Rate 18 01/26/23 00:30 Blood Pressure 120/104 01/26/23 00:30 Pulse Oximetry 95 01/26/23 00:30 Oxygen Delivery Me thod Room Air 01/26/23 00:30 MDM - Abdominal Pain Medical Decision Making Patient presents here with abdominal pain CT blood work are all normal he stable for discharge she is to follow-up with PCP and return if worsening. Medical Records I reviewed the patient's medical records. Lab Data I reviewed the patient's lab results. 01/25/23 23:00 01/25/23 23:00 Labs/Radiology: Radiology Impressions Abdomen/Pelvis CT 01/25/23 23:02 IMPRESSION: 1. Negative for focal acute inflammatory process in the abdomen or pelvis. 2. Left lower lobe atelectasis. 3. Hepatic steatosis. 4. Prominent fluid in the stomach and small bowel may reflect a gastroenteritis. 5. Nguyen catheter in the urinary bladder with air presumed iatrogenic. 6. Lumbar spine postsurgical changes. 7. Constipation. Laboratory Results WBC 6.7 10^3/uL (4.0-10.0) 01/25/23 23:00 RBC 5.53 10^6/uL (4.1-5.3) H 01/25/23 23:00 Hgb 13.8 g/dL (11.7-16.6) 01/25/23 23:00 Hct 44.9 % (42.0-52.0) 01/25/23 23:00 MCV 81.2 fl (80-94) 01/25/23 23:00 MCH 25.0 pg (28.0-34.0) L 01/25/23 23:00 MCHC 30.7 g/dL (30.0-36.0) 01/25/23 23:00 RDW 16.0 % (12.1-15.1) H 01/25/23 23:00 Plt Count 541 10^3/cmm (130-400) H 01/25/23 23:00 MPV 8.9 fL (7.4-10.4) 01/25/23 23:00 Neut % (Auto) 44.7 % 01/25/23 23:00 Lymph % (Auto) 47.1 % 01/25/23 23:00 [place] % (Auto) 5.9 % 01/25/23 23:00 Eos % (Auto) 1.7 % 01/25/23 23:00 Baso % (Auto) 0.3 % 01/25/23 23:00 Neut # (Auto) 2.98 10^3/uL (1.8-7.7) 01/25/23 23:00 Lymph # (Auto) 3.1 10^3/uL (0.8-4.8) 01/25/23 23:00 [place] # (Auto) 0.4 10^3/uL (0.2-0.9) 01/25/23 23:00 Eos # (Auto) 0.1 10^3/uL (0.0-0.8) 01/25/23 23:00 Baso # (Auto) 0.0 10^3/uL (0.0-0.1) 01/25/23 23:00 Nucleated RBC % (auto) 0 % 01/25/23 23:00 Nucleated RBCs # 0.0 /100WBC 01/25/23 23:00 Sodium 138 mmol/L (136-145) 01/25/23 23:00 Potassium 4.3 mmol/L (3.5-5.1) 01/25/23 23:00 Chloride 99 mmol/L (98-107) 01/25/23 23:00 Carbon Dioxide 25 mmol/L (22-29) 01/25/23 23:00 Anion Gap 18.3 (5-19) 01/25/23 23:00 BUN 10 mg/dL (6-20) 01/25/23 23:00 Creatinine 0.7 mg/dL (0.7-1.2) 01/25/23 23:00 GFR Calculation 133.3 mL/min (90-130) H 01/25/23 23:00 Glucose 104 mg/dL (65-115) 01/25/23 23:00 Calculated Osmolality 285 mOsm/kg (285-295) 01/25/23 23:00 Calcium 9.5 mg/dL (8.5-10.5) 01/25/23 23:00 Total Bilirubin 0.4 mg/dL (0.15-1.2) 01/25/23 23:00 AST 13 U/L (0-40) 01/25/23 23:00 ALT 12 U/L (0-41) 01/25/23 23:00 Alkaline Phosphatase 84 U/L (40-130) 01/25/23 23:00 Total Protein 8.1 g/dL (6.6-8.7) 01/25/23 23:00 Albumin 4.3 g/dL (3.5-5.2) 01/25/23 23:00 Globulin 3.8 g/dL (1.3-4.6) 01/25/23 23:00 Lipase 38 U/L (13-60) 01/25/23 23:00 Urine Color Yellow (Yellow) 01/25/23 23:20 Urine Appearance Sl hazy (CLEAR) A 01/25/23 23:20 Urine pH 6.5 (5-7) 01/25/23 23:20 Ur Specific [place] 1.015 (1.005-1.030) 01/25/23 23:20 Urine Protein Neg (Negative) 01/25/23 23:20 Urine Glucose (UA) Norm (Normal) 01/25/23 23:20 Urine Ketones Negative (Negative) 01/25/23 23:20 Urine Blood Neg (Negative) 01/25/23 23:20 Urine Nitrate Negative (Negative) 01/25/23 23:20 Urine Bilirubin Neg (Negative) 01/25/23 23:20 Urine Urobilinogen Neg mg/dL (Negative) 01/25/23 23:20 Ur Leukocyte Esterase Negative (Negative) 01/25/23 23:20 Urine RBC None /hpf (0-2) 01/25/23 23:20 Urine WBC None /hpf (0-5) 01/25/23 23:20 Ur Squamous Epith Cells None /hpf (0-5) 01/25/23 23:20 Amorphous Sediment 2+ /hpf 01/25/23 23:20 Urine Bacteria Trace /hpf (NONE) 01/25/23 23:20 Urine Mucus 3+ /hpf 01/25/23 23:20 Discharge Plan Discharge Patient Disposition: Home Clinical Impression: Abdominal pain Condition: Stable Prescriptions: New hydrocodone-acetaminophen 5-325 mg tablet 1 tab PO Q6H PRN (Reason: pain) Qty: 14 0RF ondansetron 4 mg tablet,disintegrating 4 mg PO Q6H PRN (Reason: nausea and vomiting) Qty: 14 0RF No Action mupirocin 2 % ointment 1 applic topical BID Qty: 15 0RF Discharge Orders: Discharge ED (Routine); Ordered 01/26/23 Ordered By: Puneet Wang Discharge Diet: Advance as tolerated Discharge Activity: Resume usual activity Patient Instructions: Abdominal Pain (ED) Coding Level of Care Code ED Network Relations Consultant for Karlos Mathis
[2023-01-25 23:06] LABS: Basophils % 0.3 %; Eosinophils # 0.1 10^3/uL (0.0-0.8); Eosinophils % 1.7 %; Hematocrit 44.9 % (42.0-52.0); Hemoglobin 13.8 g/dL (11.7-16.6); Lymphocytes # 3.1 10^3/uL (0.8-4.8); Lymphocytes % 47.1 %; Mean Corpuscular HGB Conc 30.7 g/dL (30.0-36.0); Mean Corpuscular Volume 81.2 fl (80-94); Mean Platelet Volume 8.9 fL (7.4-10.4); Monocytes # 0.4 10^3/uL (0.2-0.9); Monocytes % 5.9 %; Neutrophils # 2.98 10^3/uL (1.8-7.7); Neutrophils % 44.7 %; Nucleated Red Blood Cells % 0 %; Platelet Count 541 10^3/cmm (130-400); Red Blood Count 5.53 10^6/uL (4.1-5.3); White Blood Count 6.7 10^3/uL (4.0-10.0)
[2023-01-25 23:09] VITALS: BP 107/87; PULSE 123; RESP 18; O2SAT 100
[2023-01-25 23:12] VITALS: RESP 18; O2SAT 98
[2023-01-25] MEDS: HYDROmorphone 1 mg/mL INJ 1 mL IVP (23:12)
[2023-01-25] MEDS: ondansetron 2 mg/ML SDV 2 mL 4 MG IVP (23:12)
[2023-01-25 23:24] LABS: Alanine Aminotransferase 12 U/L (0-41); Albumin Level 4.3 g/dL (3.5-5.2); Alkaline Phosphatase 84 U/L (40-130); Anion Gap 18.3 (5-19); Aspartate Amino Transferase 13 U/L (0-40); Blood Urea Nitrogen 10 mg/dL (6-20); Calcium 9.5 mg/dL (8.5-10.5); Carbon Dioxide 25 mmol/L (22-29); Chloride 99 mmol/L (98-107); Globulin 3.8 g/dL (1.3-4.6); Glomerular Filtration Rate 133.3 mL/min (90-130); Glucose 104 mg/dL (65-115); Lipase 38 U/L (13-60); Osmolality Calculated 285 mOsm/kg (285-295); Potassium 4.3 mmol/L (3.5-5.1); Sodium 138 mmol/L (136-145); Total Bilirubin 0.4 mg/dL (0.15-1.2); Total Protein 8.1 g/dL (6.6-8.7)
[2023-01-25] MEDS: iohexol 350 mg/mL 500 mL Btl (per mL) IV (23:29)
[2023-01-25 23:43] LABS: Urine Appearance SL Hazy (CLEAR); Urine Color Yellow (Yellow)
[2023-01-25 23:44] LABS: Add Urine Culture? No; Add Urine Microscopic? YES; Amorphous Sediment Urine 2+ /hpf; Bacteria Urine TRACE /hpf; Bilirubin Urine Neg (Negative); Blood Urine Neg (Negative); Glucose Urine UA Norm (Normal); Ketones Urine Negative (Negative); Leukocyte Esterase Urine Negative (Negative); Mucus Urine 3+ /hpf; Nitrate Urine Negative (Negative); Protein Urine Neg (Negative); Specific Gravity, Urine 1.015 (1.005-1.030); Urobilinogen Urine Neg (Negative); pH Urine 6.5 (5-7)
[2023-01-26 00:30] VITALS: BP 120/104; PULSE 108; RESP 18; O2SAT 95
[2023-01-26 00:31] VITALS: BP 120/104; PULSE 106; RESP 18; O2SAT 98
--- NOTE | 2023-02-01 11:57 | DCPLANNER ---
manager materials management called patient due to no primary care physician - patient stated that he has a provider that he sees.
== END 2023-01-26 00:37 | disposition home or self-care (01) ==
PROVIDERS: Physician Assistant; Emergency Provider Emergency Medicine
DX: R10.9 Unspecified abdominal pain (principal); Z99.3 Dependence on wheelchair
CPT/HCPCS: 74177; 80053; 81001; 83690; 85025; 96374; 96375; 99285; J1170; J2405; Q9967

== ENCOUNTER 2023-02-18 18:43 | Emergency (ER) | payer BC, MEDICAID, SELFPAY ==
[2023-02-18 18:44] VITALS: BP 159/106; PULSE 112; RESP 14; TEMP 36.5; O2SAT 100
--- NOTE | 2023-02-18 18:45 | USR_ITS ---
PROCEDURE INFORMATION: Exam: US Scrotum Exam date and time: 02/18/2023 7:45 PM Age: 27 years old Clinical indication: Groin pain and scrotum pain TECHNIQUE: Imaging protocol: Real-time ultrasound of the scrotum and contents with color Doppler and image documentation. COMPARISON: CT abdomen pelvis w con* [id number] 02/18/2023 7:38 PM FINDINGS: Right testicle: No mass. No torsion. Normal vascular flow. Left testicle: No mass. No torsion. Normal vascular flow. Epididymides: Normal. Scrotum/soft tissues: Normal. US/US scrotum [id number] IMPRESSION: Normal scrotal ultrasound.
--- NOTE | 2023-02-18 18:52 | CTR_ITS ---
PROCEDURE INFORMATION: Exam: CT Abdomen And Pelvis With Contrast Exam date and time: 02/18/2023 7:38 PM Age: 27 years old Clinical indication: Abdominal pain; Localized; Right lower quadrant (rlq); Patient HX: C/O rlq pain. Nguyen in place. ; Additional info: Rlq pain/possible inguinal hernia TECHNIQUE: Imaging protocol: Computed tomography of the abdomen and pelvis with contrast. Radiation optimization: All CT scans at this facility use at least one of these dose optimization techniques: automated exposure control; mA and/or kV adjustment per patient size (includes targeted exams where dose is matched to clinical indication); or iterative reconstruction. Contrast material: OMNI 350; Contrast volume: 100 ml; Contrast route: INTRAVENOUS (IV); REPORTING DATA: Count of CT and Cardiac NM exams in prior 12 months: This patient has received 2 known CTs and 0 known cardiac nuclear medicine studies in the 12 months prior to the current study. COMPARISON: CT abdomen pelvis w con* [id number] 01/25/2023 11:26 PM RADIATION DOSE METRICS: Total DLP (mGy-cm): 1992.88 FINDINGS: Tubes, catheters and devices: Nguyen catheter in place. Lungs: Parenchymal scarring in the left lower lobe. Liver: Unremarkable. Gallbladder and bile ducts: Unremarkable. Pancreas: Unremarkable. Spleen: Unremarkable. Adrenal glands: Unremarkable. Kidneys and ureters: Unremarkable. No hydronephrosis. Stomach and bowel: Mild circumferential rectal wall thickening. Appendix: No evidence of appendicitis. Intraperitoneal space: Unremarkable. Vasculature: Unremarkable. Lymph nodes: Unremarkable. Urinary bladder: Decompressed bladder with small focus of iatrogenic air in the bladder lumen. Reproductive: Unremarkable as visualized. Bones/joints: Partially visualized midthoracic posterior decompression. Also post multilevel lumbar spine posterior decompression. Soft tissues: Unremarkable. Other findings: Midline back postsurgical change. CT/CT abdomen pelvis w con* [id number] IMPRESSION: 1. No inguinal hernia. 2. No evidence of acute appendicitis. 3. Mild circumferential rectal wall thickening compatible with proctitis. 4. Additional ancillary findings as above.
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
[2023-02-18] MEDS: iohexol 350 mg/mL 500 mL Btl (per mL) IV (19:39)
[2023-02-18 19:46] LABS: Basophils % 0.1 %; Eosinophils # 0.1 10^3/uL (0.0-0.8); Hematocrit 43.4 % (42.0-52.0); Lymphocytes # 2.1 10^3/uL (0.8-4.8); Lymphocytes % 24.9 %; Mean Corpuscular HGB Conc 32.3 g/dL (30.0-36.0); Mean Corpuscular Hemoglobin 25.1 pg (28.0-34.0); Mean Corpuscular Volume 77.8 fl (80-94); Mean Platelet Volume 9.1 fL (7.4-10.4); Monocytes # 0.5 10^3/uL (0.2-0.9); Monocytes % 6.1 %; Neutrophils % 67.7 %; Nucleated Red Blood Cells % 0 %; Platelet Count 380 10^3/cmm (130-400); Red Blood Count 5.58 10^6/uL (4.1-5.3); Red Cell Distribution Width 15.9 % (12.1-15.1); White Blood Count 8.6 10^3/uL (4.0-10.0)
[2023-02-18] MEDS: ondansetron 2 mg/ML SDV 2 mL 4 MG IVP (19:51)
[2023-02-18] MEDS: HYDROmorphone 1 mg/mL INJ 1 mL IVP ×2 (19:53→20:21)
[2023-02-18 20:07] LABS: Alanine Aminotransferase 9 U/L (0-41); Alkaline Phosphatase 77 U/L (40-130); Anion Gap 14.8 (5-19); Aspartate Amino Transferase 11 U/L (0-40); Blood Urea Nitrogen 8 mg/dL (6-20); Calcium 9.4 mg/dL (8.5-10.5); Carbon Dioxide 25 mmol/L (22-29); Chloride 103 mmol/L (98-107); Globulin 3.6 g/dL (1.3-4.6); Glomerular Filtration Rate 196.6 mL/min (90-130); Glucose 96 mg/dL (65-115); Osmolality Calculated 286 mOsm/kg (285-295); Potassium 3.8 mmol/L (3.5-5.1); Sodium 139 mmol/L (136-145); Total Bilirubin 0.3 mg/dL (0.15-1.2); Total Protein 7.6 g/dL (6.6-8.7)
[2023-02-18 20:21] VITALS: BP 145/107; PULSE 102; RESP 18; O2SAT 96
== END 2023-02-18 21:31 | disposition home or self-care (01) ==
PROVIDERS: Emergency Provider Emergency Medicine
DX: R10.31 Right lower quadrant pain (principal); G82.20 Paraplegia, unspecified
CPT/HCPCS: 74177; 76870; 80053; 85025; 96374; 96375; 96376; 99285; J1170; J2405; Q9967

== ENCOUNTER 2023-03-19 21:32 | Emergency (ER) | payer BC, MEDICAID, SELFPAY ==
[2023-03-19 21:34] VITALS: PULSE 134; RESP 18; TEMP 37.5; O2SAT 96; BMI 33.0
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
--- NOTE | 2023-03-19 21:58 | XRR_ITS ---
PROCEDURE INFORMATION: Exam: XR Abdomen Exam date and time: 03/19/2023 10:10 PM Age: 27 years old Clinical indication: Fever; Abdominal pain; Generalized; Prior surgery; Surgery date: 6+ months; Surgery type: Lumbar laminectomy; Patient HX: Diffuse abd pain with constipation. Nguyen in place. ; Additional info: Constipation, R/O obstruction TECHNIQUE: Imaging protocol: Radiologic exam of the abdomen. Views: Frontal supine view of the abdomen. 1 View. COMPARISON: CT abdomen pelvis w con* [id number] 02/18/2023 7:38 PM FINDINGS: Gastrointestinal tract: Increased fecal content in the colon. Nonobstructive bowel gas pattern. Intraperitoneal space: No free intraperitoneal air. Organs: No organomegaly. Bones/joints: Degenerative changes in the spine and hips. XR/XR KUB [id number] IMPRESSION: 1. Nonobstructed bowel gas pattern. 2. Increased fecal content in the colon. 3. Incidental/nonacute findings are listed in the report.
--- NOTE | 2023-03-19 21:58 | XRR_ITS ---
PROCEDURE INFORMATION: Exam: XR Chest Exam date and time: 03/19/2023 10:00 PM Age: 27 years old Clinical indication: Fever TECHNIQUE: Imaging protocol: Radiologic exam of the chest. Views: 1 view. COMPARISON: CR (CHEST, ) 12/25/2022 5:14 PM FINDINGS: Lungs: Lungs are clear bilaterally. Pleural spaces: No pleural effusion. No pneumothorax. Heart/Mediastinum: The cardiac silhouette and mediastinal contours are unremarkable. Bones/joints: Stable mild levoscoliosis in the thoracic spine. XR/XR chest 1V portable [id number] IMPRESSION: 1. No acute cardiopulmonary process. 2. Incidental/nonacute findings are listed in the report.
[2023-03-19 22:12] LABS: Basophils % 0.1 %; Eosinophils # 0.2 10^3/uL (0.0-0.8); Eosinophils % 2.6 %; Hematocrit 38.8 % (37-53); Lymphocytes # 1.3 10^3/uL (0.8-4.8); Lymphocytes % 15.6 %; Mean Corpuscular HGB Conc 32.7 g/dL (30-55); Mean Corpuscular Hemoglobin 25.5 pg (27-33); Mean Corpuscular Volume 77.9 fl (82-101); Mean Platelet Volume 8.4 fL (7.4-10.4); Monocytes # 0.6 10^3/uL (0.2-0.9); Monocytes % 7.1 %; Neutrophils # 6.35 10^3/uL (1.8-7.7); Neutrophils % 74.4 %; Nucleated Red Blood Cells % 0 %; Platelet Count 372 10^3/cmm (157-399); Red Blood Count 4.98 10^6/uL (3.85-5.65); Red Cell Distribution Width 15.2 % (12.1-15.1); White Blood Count 8.54 10^3/uL (3.29-11.43)
[2023-03-19] MEDS: oxyCODONE 5 mg IR Tab/Cap 15 MG PO (22:19)
[2023-03-19 22:24] LABS: Add Urine Culture? Yes; Add Urine Microscopic? YES; Bacteria Urine 2+ /hpf; Bilirubin Urine Neg (Negative); Blood Urine 2+ (Negative); Glucose Urine UA Trace (Normal); Ketones Urine Negative (Negative); Leukocyte Esterase Urine 2+ (Negative); Nitrate Urine Positive (Negative); Protein Urine 1+ (Negative); RBC Urine 0-4 /hpf (0-2); Specific Gravity, Urine 1.025 (1.005-1.030); Squamous Epithelial Cell Urine 0-4 /hpf (0-5); Urine Appearance Clear (CLEAR); Urine Color Colorless (Yellow); Urobilinogen Urine Neg (Negative); pH Urine 7 (5-7)
[2023-03-19 22:30] LABS: Alanine Aminotransferase 29 U/L (0-41); Albumin Level 3.9 g/dL (3.5-5.2); Alkaline Phosphatase 108 U/L (40-130); Aspartate Amino Transferase 34 U/L (0-40); Blood Urea Nitrogen 10 mg/dL (6-20); C Reactive Protein 122.6 mg/L (0.0-4.9); Calcium 9.1 mg/dL (8.5-10.5); Carbon Dioxide 26 mmol/L (22-29); Chloride 97 mmol/L (98-107); Globulin 3.5 g/dL (1.3-4.6); Glomerular Filtration Rate 159.3 mL/min (90-130); Glucose 127 mg/dL (65-115); Osmolality Calculated 283 mOsm/kg (285-295); Sodium 136 mmol/L (136-145); Total Bilirubin 0.5 mg/dL (0.15-1.2); Total Protein 7.4 g/dL (6.6-8.7)
[2023-03-19] MEDS: cefTRIAXone 1,000 MG in water for injection-sterile 2.1 ML 2.1 MG IM (23:05)
[2023-03-19] MEDS: mupirocin oint 22 gm 1 APPLIC TOPICAL (23:06)
[2023-03-19 23:22] VITALS: PULSE 134; RESP 18; TEMP 37.5; O2SAT 96
== END 2023-03-19 23:25 | disposition home or self-care (01) ==
PROVIDERS: Emergency Provider Nurse Practitioner Family; PCP Family Medicine
DX: L03.032 Cellulitis of left toe (principal); L01.03 Bullous impetigo; K59.00 Constipation, unspecified
CPT/HCPCS: 36415; 71045; 74018; 80053; 81001; 83605; 85025; 86140; 87086; 96372; 99284; J0696

== ENCOUNTER 2023-03-25 14:03 | Emergency (ER) | payer BC, MEDICAID, SELFPAY ==
[2023-03-25 14:35] VITALS: BP 135/91; PULSE 115; RESP 18; TEMP 36.9; O2SAT 98; BMI 33.0
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
[2023-03-25 15:12] VITALS: BP 134/84; PULSE 117; O2SAT 98
== END 2023-03-25 15:19 | disposition home or self-care (01) ==
PROVIDERS: Emergency Provider Family Medicine; PCP Family Medicine
DX: G83.11 Monoplegia of lower limb affecting right dominant side (principal); G83.12 Monoplegia of lower limb affecting left dominant side; Z46.6 Encounter for fitting and adjustment of urinary device; F17.290 Nicotine dependence, other tobacco product, uncomplicated
CPT/HCPCS: 51702; 99283

== ENCOUNTER 2023-04-01 20:19 | Inpatient (IN) | payer OTHER, BC, SELFPAY ==
[2023-04-01 20:40] VITALS: BP 142/81; PULSE 137; RESP 17; TEMP 37.4; O2SAT 99; BMI 33.7
--- NOTE | 2023-04-01 21:28 | XRR_ITS ---
PROCEDURE INFORMATION: Exam: XR Left Toe(s) Exam date and time: 04/01/2023 10:26 PM Age: 27 years old Clinical indication: Pain; Toes; Bilateral; Additional info: Wound inf, osteo? TECHNIQUE: Imaging protocol: Radiologic exam of the left toes. Views: Minimum 2 views. COMPARISON: No relevant prior studies available. FINDINGS: Bones/joints: Cortical irregularity at the tip of the 1st digit with bony resorption of a portion of the tuft of the 1st digit consistent with osteomyelitis. Soft tissues: Normal. XR/XR toe LT min 2V [id number] IMPRESSION: Cortical irregularity at the tip of the 1st digit with bony resorption of a portion of the tuft of the 1st digit consistent with osteomyelitis.
--- NOTE | 2023-04-01 21:28 | XRR_ITS ---
PROCEDURE INFORMATION: Exam: XR Right Toe(s) Exam date and time: 04/01/2023 10:21 PM Age: 27 years old Clinical indication: Pain; Foot; Bilateral; Additional info: Wound infection, attn great toe- osteo? TECHNIQUE: Imaging protocol: Radiologic exam of the right toes. Views: Minimum 2 views. COMPARISON: No relevant prior studies available. FINDINGS: Bones/joints: Normal. Soft tissues: Normal. XR/XR toe RT min 2V [id number] IMPRESSION: No acute findings. No cortical irregularity or medullary lucency to suggest osteomyelitis of the great toe. However, if there is continued clinical concern for osteomyelitis a forefoot MRI may be of benefit.
--- NOTE | 2023-04-01 21:37 | ED_ITS ---
Documented by User: JIMI Atkinson 04/02/23 03:55 HPI - Skin/Abscess/Foreign Bdy General: Chief complaint: Skin/Abscess/Foreign Body Stated complaint: sores on butt and legs Time Seen by Provider: 04/01/23 21:16 Source: patient Mode of arrival: wheelchair Limitations: no limitations History of Present Illness: Patient presents emergency department today for evaluation treatment of worsening skin wounds. Patient states he has had these for quite a while and c lu review shows that there was some mention of skin wounds on 03/19 when he was seen here in the ER for toe wounds/infections. Patient had been given antibiotics at that time. Chart review also shows that according to documentation by his primary care doctor, patient had multiple lumbar surgeries for disc issues and stenosis however, wind up getting an infection in his spine. Patient has minimal mobility of his lower extremities at this time and is unable to bear weight and is therefore in a wheelchair. He also has an indwelling Nguyen catheter. Patient has some sensation into his lower e xtremities however. Patient states he went to see a wire drawing machine operator who told him he had a parasite . Patient presents with a metal bottle with these parasites that he got from his skin last night. He indicated he put ivermectin on his wounds yesterday. Review of Systems General: Reports: 10 or more systems reviewed and unremarkable except in HPI and below PFSH ED PFSH: Medical History Paralysis of both lower limbs Urinary retention Surgical History Hx of decompressive lumbar laminectomy Family History Grandfather Cancer Bladder Sister Psychiatric illness Denies family history of Diabetes CAD (coronary artery disease) Clotting disorder Dementia Chronic kidney disease (CKD) Hypertension Stroke Social History Smoking and tobacco status: current every day smoker e-cigarettes E-Cigarette Details: vaporizer device and with nicotine E-cig/vape details: using about 6-7 months, smoked cigarettes PPD x 12-13 yrs, started vaping 6 Second hand smoke exposure: No Alcohol intake: never Substance/Drug Use: former Date of last use: year ago Other details last substance use: Marijuana Caregiver/support person: Yes Lives independently: Yes Marital status: Single Highest education level completed: High School Graduate service: No Current occupational status: unemployed Current gender identity: Male Special michael needs: No Agree to transfusion: Yes Physical Exam Const: COMMON NORMALS: average body habitus and patient oriented x3; apparent distress OTHER: Patient appears agitated-unable to remain still in the bed. Highly suspect patient is under the influence. HENMT: COMMON NORMALS: normocephalic, atraumatic, hearing grossly normal bilaterally, Normal external nose present and moist oral mucous membranes HEAD & SCALP: normocephalic and atraumatic NOSE: Normal external nose present Eye: COMMON NORMALS: EOMs intact bilaterally and conjunctivae normal CONJUNCTIVA: Yes conjunctivae normal Neck/C-Spine: COMMON NORMALS: no JVD Lymph: LYMPHATIC: no lymphadenopathy noted Resp: COMMON NORMALS: normal respiratory effort, No retractions and No use of accessory muscles Cardio: COMMON NORMALS: no JVD, regular rate and regular rhythm RATE: regular rate RHYTHM: regular rhythm GI: COMMON NORMALS: Normal to inspection, nondistended, normoactive bowel sounds present : COMMON NORMALS: Yes no CVA tenderness BLADDER/KIDNEY EXAM: Yes no CVA tenderness Back/Pelvis: COMMON NORMALS: no CVA tenderness and thoraco-lumbar ROM normal Extremity: COMMON NORMALS: negative for normal to inspection and negative for full ROM Neuro: COMMON NORMALS: patient oriented x3 Psych: COMMON NORMALS: mental status grossly normal, Normal thought process present, cooperative, normal affect and activity/motor behavior normal THOUGHT PROCESS: Normal thought process present Skin: NARRATIVE SKIN EXAM: Patient has large areas of skin loss and ulceration-ranging anywhere from 3 to 4 cm up to 8 cm. Many of these are bleeding and oozing. Many of these are scabbed over. Wounds primarily on the lower extremities bilaterally, patient's left hip, and lower abdomen. Distal ends of the patient's great toes bilaterally appear significantly effected and possible soft tissue loss. Concerns for underlying bone infection. Course Vital Signs: Vital signs: Vital Signs Temperature 99.4 F 04/01/23 20:40 Pulse Rate 99 04/02/23 03:18 Respiratory Rate 22 H 04/02/23 03:18 Blood Pressure 124/79 04/02/23 03:18 Pulse Oximetry 94 04/02/23 03:18 Oxygen Delivery Me thod Room Air 04/02/23 03:18 MDM - Skin/Abscess/Foreign Bdy Medicial Decision Making Mariela Jackson PA-C: Patient presented to the emergency department today for worsening skin lesions. These lesions were noted approximately week ago when he was seen here in the emergency department. He was started on Keflex at that time but, appears to have continued to worsen. Patient appears to be under the influence today and urine drug screen is positive for methamphetamine, marijuana, and benzos. Patient also shows signs of possible urinary tract infection. Otherwise, patient has no elevated white blood cell count but noted elevated inflammatory markers. Given the severity of the wounds on the toes there was concern for underlying bone infection. X-ray does confirm concerns for osteomyelitis of the left great toe. Recommendation for further work-up into the right toe was noted by the radiologist if there were concerns. Given that I figured the patient was going to require more extensive work-up and evaluation/intervention, I did reach out to podiatry and spoke with Dr. Shelby about the x-ray findings. He did indicate he would be willing to do a consult to potentially take patient to the OR if hospitalist would admit. I spoke with our hospitalist who had some reservations about admitting the patient due to his history and requested bedside evaluation prior to admission. At this time, transfer of care to Dr. Bloom who discussed with hospitalist recommendations for further evaluation. Patient was originally seen by Mrs. Manuel PA-C. I agree with her history, evaluation, and initial work-up. This patient has a hepatitis C history. He has a history of illicit drug use. He has multiple large ulcerations to his skin that appear almost vasculitic. He has cortical irregularity of his distal phalanx of the left great toe consistent with osteomyelitis. Mrs. Jackson had contacted foot/ankle surgery, who is willing to inspect the wound in consultation, but our hospitalist is concerned about the more widespread vasculitic type lesions of the lower extremities, belly, and back. She believes these needed diagnosis confirmed before the patient can proceed with potential surgery for the osteomyelitis. I tend to agree. This may require skin biopsy, and inpatient dermatology consultation. We do not have such a service here at this facility. We have reached out to multiple facilities. Bed availability is scarce. [facility] is looking over the patient's images and reviewing presentation now, and will let us know if they have a bed for the patient. In the meantime, he is receiving vancomycin and Zosyn as well as some pain control medication. Differential Diagnosis Unlikely viral exanthem, urticaria, herpes zoster, allergic reaction to drug, eczema, impetigo or contact dermatitis Lab Data 04/01/23 21:55 04/01/23 21:55 Radiology Impressions Toe X-Ray 04/01/23 21:28 IMPRESSION: Cortical irregularity at the tip of the 1st digit with bony resorption of a portion of the tuft of the 1st digit consistent with osteomyelitis. Laboratory Results WBC 10.22 10^3/uL (3.29-11.43) 04/01/23 21:55 RBC 4.47 10^6/uL (3.85-5.65) 04/01/23 21:55 Hgb 11.00 g/dL (11.27-16.99) L 04/01/23 21:55 Hct 34.6 % (37-53) L 04/01/23 21:55 MCV 77.4 fl (82-101) L 04/01/23 21:55 MCH 24.6 pg (27-33) L 04/01/23 21:55 MCHC 31.8 g/dL (30-55) 04/01/23 21:55 RDW 15.8 % (12.1-15.1) H 04/01/23 21:55 Plt Count 616 10^3/cmm (157-399) H 04/01/23 21:55 MPV 8.6 fL (7.4-10.4) 04/01/23 21:55 Neut % (Auto) 67.1 % 04/01/23 21:55 Lymph % (Auto) 20.5 % 04/01/23 21:55 [place] % (Auto) 8.5 % 04/01/23 21:55 Eos % (Auto) 2.6 % 04/01/23 21:55 Baso % (Auto) 0.2 % 04/01/23 21:55 Neut # (Auto) 6.86 10^3/uL (1.8-7.7) 04/01/23 21:55 Lymph # (Auto) 2.1 10^3/uL (0.8-4.8) 04/01/23 21:55 [place] # (Auto) 0.9 10^3/uL (0.2-0.9) 04/01/23 21:55 Eos # (Auto) 0.3 10^3/uL (0.0-0.8) 04/01/23 21:55 Baso # (Auto) 0.0 10^3/uL (0.0-0.1) 04/01/23 21:55 Nucleated RBC % (auto) 0 % 04/01/23 21:55 Nucleated RBCs # 0.0 /100WBC 04/01/23 21:55 ESR 81 mm/hr (0-10) H 04/01/23 21:55 Sodium 136 mmol/L (136-145) 04/01/23 21:55 Potassium 3.7 mmol/L (3.5-5.1) 04/01/23 21:55 Chloride 100 mmol/L (98-107) 04/01/23 21:55 Carbon Dioxide 23 mmol/L (22-29) 04/01/23 21:55 Anion Gap 16.7 (5-19) 04/01/23 21:55 BUN 6 mg/dL (6-20) 04/01/23 21:55 Creatinine 0.5 mg/dL (0.7-1.2) L 04/01/23 21:55 GFR Calculation 196.6 mL/min (90-130) H 04/01/23 21:55 Glucose 158 mg/dL (65-115) H 04/01/23 21:55 Calculated Osmolality 283 mOsm/kg (285-295) L 04/01/23 21:55 Calcium 8.4 mg/dL (8.5-10.5) L 04/01/23 21:55 Total Bilirubin 0.4 mg/dL (0.15-1.2) 04/01/23 21:55 AST 20 U/L (0-40) 04/01/23 21:55 ALT 13 U/L (0-41) 04/01/23 21:55 Alkaline Phosphatase 72 U/L (40-130) 04/01/23 21:55 C-Reactive Protein 119.6 mg/L (0.0-4.9) H 04/01/23 21:55 Total Protein 7.5 g/dL (6.6-8.7) 04/01/23 21:55 Albumin 3.4 g/dL (3.5-5.2) L 04/01/23 21:55 Globulin 4.1 g/dL (1.3-4.6) 04/01/23 21:55 Procalcitonin 0.07 ng/mL (0-0.5) 04/01/23 21:55 Urine Color Yellow (Yellow) 04/01/23 23:40 Urine Appearance Hazy (CLEAR) A 04/01/23 23:40 Urine pH 6 (5-7) 04/01/23 23:40 Ur Specific [place] 1.005 (1.005-1.030) 04/01/23 23:40 Urine Protein Neg (Negative) 04/01/23 23:40 Urine Glucose (UA) Norm (Normal) 04/01/23 23:40 Urine Ketones Negative (Negative) 04/01/23 23:40 Urine Blood Trace (Negative) H 04/01/23 23:40 Urine Nitrate Positive (Negative) H 04/01/23 23:40 Urine Bilirubin Neg (Negative) 04/01/23 23:40 Urine Urobilinogen Neg mg/dL (Negative) 04/01/23 23:40 Ur Leukocyte Esterase 2+ (Negative) H 04/01/23 23:40 Urine RBC 0-4 /hpf (0-2) H 04/01/23 23:40 Urine WBC 5-10 /hpf (0-5) H 04/01/23 23:40 Ur Squamous Epith Cells Rare /hpf (0-5) 04/01/23 23:40 Amorphous Sediment Not Reportable 04/01/23 23:40 Urine Bacteria None /hpf (NONE) 04/01/23 23:40 Urine Opiates Screen Negative ng/mL (Negative) 04/01/23 23:40 Ur Barbiturates Screen Negative ng/mL (Negative) 04/01/23 23:40 Ur Phencyclidine Scrn Negative ng/mL (Negative) 04/01/23 23:40 Ur Amphetamines Screen Positive ng/mL (Negative) H 04/01/23 23:40 U Benzodiazepines Scrn Positive ng/mL (Negative) H 04/01/23 23:40 Urine Cocaine Screen Negative ng/mL (Negative) 04/01/23 23:40 U Marijuana (THC) Screen Positive ng/mL (Negative) H 04/01/23 23:40 Ethyl Alcohol < 10 mg/dL (0-10) 04/01/23 21:55 HIV 1&2 Ab & HIV 1 Ag Non-reactive (Non-Reactiv) 04/01/23 21:55 HIV 1&2 Antibody Non-reactive (Non-Reactiv) 04/01/23 21:55 All radiology interpretation(s) finalized by discharge Discharge Plan Discharge Patient Disposition: Admitted As Inpatient Admit Provider: Bunny Dawson Clinical Impression: Skin ulcer, Osteomyelitis, Vasculitis Condition: Stable Sign Out Sign Out Data: Patient Sign Out occurred on 04/02/23 at 06:59. Patient's care was discussed, and care was transferred from to Vinh Singh DO. Coding Level of Care Code ED Electroplater Apprentice for Chg Fwd Documented by User: Vadim Bloom DO 04/02/23 20:57 HPI - Skin/Abscess/Foreign Bdy General: Chief complaint: Skin/Abscess/Foreign Body Stated complaint: sores on butt and legs Time Seen by Provider: 04/01/23 21:16 PFSH ED PFSH: Medical History Paralysis of both lower limbs Urinary retention Surgical History Hx of decompressive lumbar laminectomy Family History Grandfather Cancer Bladder Sister Psychiatric illness Denies family history of Diabetes CAD (coronary artery disease) Clotting disorder Dementia Chronic kidney disease (CKD) Hypertension Stroke Social History Smoking and tobacco status: current every day smoker e-cigarettes E-Cigarette Details: vaporizer device and with nicotine E-cig/vape details: using about 6-7 months, smoked cigarettes PPD x 12-13 yrs, started vaping 6 Second hand smoke exposure: No Alcohol intake: never Substance/Drug Use: former Date of last use: year ago Other details last substance use: Marijuana Caregiver/support person: Yes Lives independently: Yes Marital status: Single Highest education level completed: High School Graduate service: No Current occupational status: unemployed Current gender identity: Male Special michael needs: No Agree to transfusion: Yes Course Vital Signs: Vital signs: Vital Signs Temperature 99.4 F 04/01/23 20:40 Pulse Rate 99 04/02/23 03:18 Respiratory Rate 22 H 04/02/23 03:18 Blood Pressure 124/79 04/02/23 03:18 Pulse Oximetry 94 04/02/23 03:18 Oxygen Delivery Me thod Room Air 04/02/23 03:18 MDM - Skin/Abscess/Foreign Bdy Medicial Decision Making Mariela Jackson PA-C: Patient presented to the emergency department today for worsening skin lesions. These lesions were noted approximately week ago when he was seen here in the emergency department. He was started on Keflex at that time but, appears to have continued to worsen. Patient appears to be under the influence today and urine drug screen is positive for methamphetamine, marijuana, and benzos. Patient also shows signs of possible urinary tract infection. Otherwise, patient has no elevated white blood cell count but noted elevated inflammatory markers. Given the severity of the wounds on the toes there was concern for underlying bone infection. X-ray does confirm concerns for osteomyelitis of the left great toe. Recommendation for further work-up into the right toe was noted by the radiologist if there were concerns. Given that I figured the patient was going to require more extensive work-up and evaluation/intervention, I did reach out to podiatry and spoke with Dr. Shelby about the x-ray findings. He did indicate he would be willing to do a consult to potentially take patient to the OR if hospitalist would admit. I spoke with our hospitalist who had some reservations about admitting the patient due to his history and requested bedside evaluation prior to admission. At this time, transfer of care to Dr. Bloom who discussed with hospitalist recom mendations for further evaluation. Patient was originally seen by Mrs. Manuel PA-C. I agree with her history, evaluation, and initial work-up. This patient has a hepatitis C history. He has a history of illicit drug use. He has multiple large ulcerations to his skin that appear almost vasculitic. He has cortical irregularity of his distal phalanx of the left great toe consistent with osteomyelitis. Mrs. Jackson had contacted foot/ankle surgery, who is willing to inspect the wound in consultation, but our hospitalist is concerned about the more widespread vasculitic type lesions of the lower extremities, belly, and back. She believes these needed diagnosis confirmed before the patient can proceed with potential surgery for the osteomyelitis. I tend to agree. This may require skin biopsy, and inpatient dermatology consultation. We do not have such a service here at this facility. We have reached out to multiple facilities. Bed availability is scarce. [facility] is looking over the patient's images and reviewing presentation now, and will let us know if they have a bed for the patient. In the meantime, he is receiving vancomycin and Zosyn as well as some pain control medication. [facility] is declined. We have sought help from multiple facilities including [facility], [facility], [facility], [facility], [facility] in [place], and [address] in [place]. There is no bed availability for this patient. There is suggestion is to call back later today to see if beds may be available. We will reorder antibiotics for the patient. Lab Data 04/01/23 21:55 04/01/23 21:55 Radiology Impressions Toe X-Ray 04/01/23 21:28 IMPRESSION: Cortical irregularity at the tip of the 1st digit with bony resorption of a portion of the tuft of the 1st digit consistent with osteomyelitis. Laboratory Results WBC 10.22 10^3/uL (3.29-11.43) 04/01/23 21:55 RBC 4.47 10^6/uL (3.85-5.65) 04/01/23 21:55 Hgb 11.00 g/dL (11.27-16.99) L 04/01/23 21:55 Hct 34.6 % (37-53) L 04/01/23 21:55 MCV 77.4 fl (82-101) L 04/01/23 21:55 MCH 24.6 pg (27-33) L 04/01/23 21:55 MCHC 31.8 g/dL (30-55) 04/01/23 21:55 RDW 15.8 % (12.1-15.1) H 04/01/23 21:55 Plt Count 616 10^3/cmm (157-399) H 04/01/23 21:55 MPV 8.6 fL (7.4-10.4) 04/01/23 21:55 Neut % (Auto) 67.1 % 04/01/23 21:55 Lymph % (Auto) 20.5 % 04/01/23 21:55 [place] % (Auto) 8.5 % 04/01/23 21:55 Eos % (Auto) 2.6 % 04/01/23 21:55 Baso % (Auto) 0.2 % 04/01/23 21:55 Neut # (Auto) 6.86 10^3/uL (1.8-7.7) 04/01/23 21:55 Lymph # (Auto) 2.1 10^3/uL (0.8-4.8) 04/01/23 21:55 [place] # (Auto) 0.9 10^3/uL (0.2-0.9) 04/01/23 21:55 Eos # (Auto) 0.3 10^3/uL (0.0-0.8) 04/01/23 21:55 Baso # (Auto) 0.0 10^3/uL (0.0-0.1) 04/01/23 21:55 Nucleated RBC % (auto) 0 % 04/01/23 21:55 Nucleated RBCs # 0.0 /100WBC 04/01/23 21:55 ESR 81 mm/hr (0-10) H 04/01/23 21:55 Sodium 136 mmol/L (136-145) 04/01/23 21:55 Potassium 3.7 mmol/L (3.5-5.1) 04/01/23 21:55 Chloride 100 mmol/L (98-107) 04/01/23 21:55 Carbon Dioxide 23 mmol/L (22-29) 04/01/23 21:55 Anion Gap 16.7 (5-19) 04/01/23 21:55 BUN 6 mg/dL (6-20) 04/01/23 21:55 Creatinine 0.5 mg/dL (0.7-1.2) L 04/01/23 21:55 GFR Calculation 196.6 mL/min (90-130) H 04/01/23 21:55 Glucose 158 mg/dL (65-115) H 04/01/23 21:55 Calculated Osmolality 283 mOsm/kg (285-295) L 04/01/23 21:55 Calcium 8.4 mg/dL (8.5-10.5) L 04/01/23 21:55 Total Bilirubin 0.4 mg/dL (0.15-1.2) 04/01/23 21:55 AST 20 U/L (0-40) 04/01/23 21:55 ALT 13 U/L (0-41) 04/01/23 21:55 Alkaline Phosphatase 72 U/L (40-130) 04/01/23 21:55 C-Reactive Protein 119.6 mg/L (0.0-4.9) H 04/01/23 21:55 Total Protein 7.5 g/dL (6.6-8.7) 04/01/23 21:55 Albumin 3.4 g/dL (3.5-5.2) L 04/01/23 21:55 Globulin 4.1 g/dL (1.3-4.6) 04/01/23 21:55 Procalcitonin 0.07 ng/mL (0-0.5) 04/01/23 21:55 Urine Color Yellow (Yellow) 04/01/23 23:40 Urine Appearance Hazy (CLEAR) A 04/01/23 23:40 Urine pH 6 (5-7) 04/01/23 23:40 Ur Specific [place] 1.005 (1.005-1.030) 04/01/23 23:40 Urine Protein Neg (Negative) 04/01/23 23:40 Urine Glucose (UA) Norm (Normal) 04/01/23 23:40 Urine Ketones Negative (Negative) 04/01/23 23:40 Urine Blood Trace (Negative) H 04/01/23 23:40 Urine Nitrate Positive (Negative) H 04/01/23 23:40 Urine Bilirubin Neg (Negative) 04/01/23 23:40 Urine Urobilinogen Neg mg/dL (Negative) 04/01/23 23:40 Ur Leukocyte Esterase 2+ (Negative) H 04/01/23 23:40 Urine RBC 0-4 /hpf (0-2) H 04/01/23 23:40 Urine WBC 5-10 /hpf (0-5) H 04/01/23 23:40 Ur Squamous Epith Cells Rare /hpf (0-5) 04/01/23 23:40 Amorphous Sediment Not Reportable 04/01/23 23:40 Urine Bacteria None /hpf (NONE) 04/01/23 23:40 Urine Opiates Screen Negative ng/mL (Negative) 04/01/23 23:40 Ur Barbiturates Screen Negative ng/mL (Negative) 04/01/23 23:40 Ur Phencyclidine Scrn Negative ng/mL (Negative) 04/01/23 23:40 Ur Amphetamines Screen Positive ng/mL (Negative) H 04/01/23 23:40 U Benzodiazepines Scrn Positive ng/mL (Negative) H 04/01/23 23:40 Urine Cocaine Screen Negative ng/mL (Negative) 04/01/23 23:40 U Marijuana (THC) Screen Positive ng/mL (Negative) H 04/01/23 23:40 Ethyl Alcohol < 10 mg/dL (0-10) 04/01/23 21:55 HIV 1&2 Ab & HIV 1 Ag Non-reactive (Non-Reactiv) 04/01/23 21:55 HIV 1&2 Antibody Non-reactive (Non-Reactiv) 04/01/23 21:55 Discharge Plan Discharge Patient Disposition: Admitted As Inpatient Admit Provider: Bunny Dawson Clinical Impression: Skin ulcer, Osteomyelitis, Vasculitis Condition: Stable Sign Out Sign Out Data: Patient Sign Out occurred on 04/02/23 at 06:59. Patient's care was discussed, and care was transferred from to Vinh Singh DO. Coding Level of Care Code ED Electroplater Apprentice for Chg Fwd Documented by User: Vinh Singh DO 04/02/23 08:29 HPI - Skin/Abscess/Foreign Bdy General: Chief complaint: Skin/Abscess/Foreign Body Stated complaint: sores on butt and legs Time Seen by Provider: 04/01/23 21:16 [facility] ED PFSH: Medical History Paralysis of both lower limbs Urinary retention Surgical History Hx of decompressive lumbar laminectomy Family History Grandfather Cancer Bladder Sister Psychiatric illness Denies family history of Diabetes CAD (coronary artery disease) Clotting disorder Dementia Chronic kidney disease (CKD) Hypertension Stroke Social History Smoking and tobacco status: current every day smoker e-cigarettes E-Cigarette Details: vaporizer device and with nicotine E-cig/vape details: using about 6-7 months, smoked cigarettes PPD x 12-13 yrs, started vaping 6 Second hand smoke exposure: No Alcohol intake: never Substance/Drug Use: former Date of last use: year ago Other details last substance use: Marijuana Caregiver/support person: Yes Lives independently: Yes Marital status: Single Highest education level completed: High School Graduate service: No Current occupational status: unemployed Current gender identity: Male Special michael needs: No Agree to transfusion: Yes Course Vital Signs: Vital signs: Vital Signs Temperature 99.4 F 04/01/23 20:40 Pulse Rate 99 04/02/23 03:18 Respiratory Rate 22 H 04/02/23 03:18 Blood Pressure 124/79 04/02/23 03:18 Pulse Oximetry 94 04/02/23 03:18 Oxygen Delivery Me thod Room Air 04/02/23 03:18 MDM - Skin/Abscess/Foreign Bdy Medicial Decision Making Mariela Jackson PA-C: Patient presented to the emergency department today for worsening skin lesions. These lesions were noted approximately week ago when he was seen here in the emergency department. He was started on Keflex at that time but, appears to have continued to worsen. Patient appears to be under the influence today and urine drug screen is positive for methamphetamine, marijuana, and benzos. Patient also shows signs of possible urinary tract infection. Otherwise, patient has no elevated white blood cell count but noted elevated inflammatory markers. Given the severity of the wounds on the toes there was concern for underlying bone infection. X-ray does confirm concerns for osteomyelitis of the left great toe. Recommendation for further work-up into the right toe was noted by the radiologist if there were concerns. Given that I figured the patient was going to require more extensive work-up and evaluation/intervention, I did reach out to podiatry and spoke with Dr. Shelby about the x-ray findings. He did indicate he would be willing to do a consult to potentially take patient to the OR if hospitalist would admit. I spoke with our hospitalist who had some reservations about admitting the patient due to his history and requested bedside evaluation prior to admission. At this time, transfer of care to Dr. Bloom who discussed with hospitalist recommendations for further evaluation. Patient was originally seen by Mrs. JacksonKEERTHI. I agree with her history, evaluation, and initial work-up. This patient has a hepatitis C history. He has a history of illicit drug use. He has multiple large ulcerations to his skin that appear almost vasculitic. He has cortical irregularity of his distal phalanx of the left great toe consistent with osteomyelitis. Mrs. Jackson had contacted foot/ankle surgery, who is willing to inspect the wound in consultation, but our hospitalist is concerned about the more widespread vasculitic type lesions of the lower extremities, belly, and back. She believes these needed diagnosis confirmed before the patient can proceed with potential surgery for the osteomyelitis. I tend to agree. This may require skin biopsy, and inpatient dermatology consultation. We do not have such a service here at this facility. We have reached out to multiple facilities. Bed availability is scarce. [facility] is looking over the patient's images and reviewing presentation now, and will let us know if they have a bed for the patient. In the meantime, he is receiving vancomycin and Zosyn as well as some pain control medication. [facility] is declined. We have sought help from multiple facilities including [facility], [facility], [facility], [facility], [facility] in [place], and [address] in [place]. There is no bed availability for this patient. There is suggestion is to call back later today to see if beds may be available. We will reorder antibiotics for the patient. 04/02/23 0826 Care assumed at change of shift reviewed with Dr. Bloom. Contacted Dr. Marx with the patient's permission when he took pictures of the skin lesions. Dr. Marx's opinion is that these are excoriated areas based on their appearance. She does not believe they are infected or autoimmune. While Dr. Marx does not have inpatient privileges stated she would be willing to come and see the patient and discussed with the hospitalist. If she felt the biopsy was indicated we could ask general surgery to see the patient and do the skin biopsy. She states she would be willing to follow the patient as an outpatient after hospitalization for any further needs beyond wound care. Discussed with Dr. Shelby he is willing to follow the patient he has actually been to the department and seen the patient this morning. He felt there was good blood flow to the foot does not necessarily recommend surgery at this time recommends med ical approach treating the osteomyelitis. Discussed Dr. Dawson will admit the patient Dr. Green will consult. Dr. Marx will advise as far as the dermatology issues. Continue IV antibiotics orders written. Medical Records I reviewed the patient's medical records. Lab Data I reviewed the patient's lab results. 04/01/23 21:55 04/01/23 21:55 Radiology Impressions Toe X-Ray 04/01/23 21:28 IMPRESSION: Cortical irregularity at the tip of the 1st digit with bony resorption of a portion of the tuft of the 1st digit consistent with osteomyelitis. Laboratory Results WBC 10.22 10^3/uL (3.29-11.43) 04/01/23 21:55 RBC 4.47 10^6/uL (3.85-5.65) 04/01/23 21:55 Hgb 11.00 g/dL (11.27-16.99) L 04/01/23 21:55 Hct 34.6 % (37-53) L 04/01/23 21:55 MCV 77.4 fl (82-101) L 04/01/23 21:55 MCH 24.6 pg (27-33) L 04/01/23 21:55 MCHC 31.8 g/dL (30-55) 04/01/23 21:55 RDW 15.8 % (12.1-15.1) H 04/01/23 21:55 Plt Count 616 10^3/cmm (157-399) H 04/01/23 21:55 MPV 8.6 fL (7.4-10.4) 04/01/23 21:55 Neut % (Auto) 67.1 % 04/01/23 21:55 Lymph % (Auto) 20.5 % 04/01/23 21:55 [place] % (Auto) 8.5 % 04/01/23 21:55 Eos % (Auto) 2.6 % 04/01/23 21:55 Baso % (Auto) 0.2 % 04/01/23 21:55 Neut # (Auto) 6.86 10^3/uL (1.8-7.7) 04/01/23 21:55 Lymph # (Auto) 2.1 10^3/uL (0.8-4.8) 04/01/23 21:55 [place] # (Auto) 0.9 10^3/uL (0.2-0.9) 04/01/23 21:55 Eos # (Auto) 0.3 10^3/uL (0.0-0.8) 04/01/23 21:55 Baso # (Auto) 0.0 10^3/uL (0.0-0.1) 04/01/23 21:55 Nucleated RBC % (auto) 0 % 04/01/23 21:55 Nucleated RBCs # 0.0 /100WBC 04/01/23 21:55 ESR 81 mm/hr (0-10) H 04/01/23 21:55 Sodium 136 mmol/L (136-145) 04/01/23 21:55 Potassium 3.7 mmol/L (3.5-5.1) 04/01/23 21:55 Chloride 100 mmol/L (98-107) 04/01/23 21:55 Carbon Dioxide 23 mmol/L (22-29) 04/01/23 21:55 Anion Gap 16.7 (5-19) 04/01/23 21:55 BUN 6 mg/dL (6-20) 04/01/23 21:55 Creatinine 0.5 mg/dL (0.7-1.2) L 04/01/23 21:55 GFR Calculation 196.6 mL/min (90-130) H 04/01/23 21:55 Glucose 158 mg/dL (65-115) H 04/01/23 21:55 Calculated Osmolality 283 mOsm/kg (285-295) L 04/01/23 21:55 Calcium 8.4 mg/dL (8.5-10.5) L 04/01/23 21:55 Total Bilirubin 0.4 mg/dL (0.15-1.2) 04/01/23 21:55 AST 20 U/L (0-40) 04/01/23 21:55 ALT 13 U/L (0-41) 04/01/23 21:55 Alkaline Phosphatase 72 U/L (40-130) 04/01/23 21:55 C-Reactive Protein 119.6 mg/L (0.0-4.9) H 04/01/23 21:55 Total Protein 7.5 g/dL (6.6-8.7) 04/01/23 21:55 Albumin 3.4 g/dL (3.5-5.2) L 04/01/23 21:55 Globulin 4.1 g/dL (1.3-4.6) 04/01/23 21:55 Procalcitonin 0.07 ng/mL (0-0.5) 04/01/23 21:55 Urine Color Yellow (Yellow) 04/01/23 23:40 Urine Appearance Hazy (CLEAR) A 04/01/23 23:40 Urine pH 6 (5-7) 04/01/23 23:40 Ur Specific [place] 1.005 (1.005-1.030) 04/01/23 23:40 Urine Protein Neg (Negative) 04/01/23 23:40 Urine Glucose (UA) Norm (Normal) 04/01/23 23:40 Urine Ketones Negative (Negative) 04/01/23 23:40 Urine Blood Trace (Negative) H 04/01/23 23:40 Urine Nitrate Positive (Negative) H 04/01/23 23:40 Urine Bilirubin Neg (Negative) 04/01/23 23:40 Urine Urobilinogen Neg mg/dL (Negative) 04/01/23 23:40 Ur Leukocyte Esterase 2+ (Negative) H 04/01/23 23:40 Urine RBC 0-4 /hpf (0-2) H 04/01/23 23:40 Urine WBC 5-10 /hpf (0-5) H 04/01/23 23:40 Ur Squamous Epith Cells Rare /hpf (0-5) 04/01/23 23:40 Amorphous Sediment Not Reportable 04/01/23 23:40 Urine Bacteria None /hpf (NONE) 04/01/23 23:40 Urine Opiates Screen Negative ng/mL (Negative) 04/01/23 23:40 Ur Barbiturates Screen Negative ng/mL (Negative) 04/01/23 23:40 Ur Phencyclidine Scrn Negative ng/mL (Negative) 04/01/23 23:40 Ur Amphetamines Screen Positive ng/mL (Negative) H 04/01/23 23:40 U Benzodiazepines Scrn Positive ng/mL (Negative) H 04/01/23 23:40 Urine Cocaine Screen Negative ng/mL (Negative) 04/01/23 23:40 U Marijuana (THC) Screen Positive ng/mL (Negative) H 04/01/23 23:40 Ethyl Alcohol < 10 mg/dL (0-10) 04/01/23 21:55 HIV 1&2 Ab & HIV 1 Ag Non-reactive (Non-Reactiv) 04/01/23 21:55 HIV 1&2 Antibody Non-reactive (Non-Reactiv) 04/01/23 21:55 All radiology interpretation(s) finalized by discharge Discharge Plan Discharge Patient Disposition: Admitted As Inpatient Admit Provider: Bunny Dawson Clinical Impression: Skin ulcer, Osteomyelitis, Vasculitis Condition: Stable Sign Out Sign Out Data: Patient Sign Out occurred on 04/02/23 at 06:59. Patient's care was discussed, and care was transferred from to Vinh Singh DO. Coding Level of Care Code ED Electroplater Apprentice for Karlos Mathis
[2023-04-01 22:11] LABS: Basophils % 0.2 %; Eosinophils # 0.3 10^3/uL (0.0-0.8); Eosinophils % 2.6 %; Hematocrit 34.6 % (37-53); Lymphocytes # 2.1 10^3/uL (0.8-4.8); Lymphocytes % 20.5 %; Mean Corpuscular HGB Conc 31.8 g/dL (30-55); Mean Corpuscular Hemoglobin 24.6 pg (27-33); Mean Corpuscular Volume 77.4 fl (82-101); Mean Platelet Volume 8.6 fL (7.4-10.4); Monocytes # 0.9 10^3/uL (0.2-0.9); Monocytes % 8.5 %; Neutrophils # 6.86 10^3/uL (1.8-7.7); Neutrophils % 67.1 %; Nucleated Red Blood Cells % 0 %; Platelet Count 616 10^3/cmm (157-399); Red Blood Count 4.47 10^6/uL (3.85-5.65); Red Cell Distribution Width 15.8 % (12.1-15.1); White Blood Count 10.22 10^3/uL (3.29-11.43)
[2023-04-01 22:29] LABS: Erythrocyte Sedimentation Rate 81 mm/hr (0-10)
[2023-04-01 22:33] LABS: Alanine Aminotransferase 13 U/L (0-41); Albumin Level 3.4 g/dL (3.5-5.2); Alcohol Level < 10 mg/dL (0-10); Alkaline Phosphatase 72 U/L (40-130); Anion Gap 16.7 (5-19); Aspartate Amino Transferase 20 U/L (0-40); Blood Urea Nitrogen 6 mg/dL (6-20); C Reactive Protein 119.6 mg/L (0.0-4.9); Calcium 8.4 mg/dL (8.5-10.5); Carbon Dioxide 23 mmol/L (22-29); Chloride 100 mmol/L (98-107); Globulin 4.1 g/dL (1.3-4.6); Glomerular Filtration Rate 196.6 mL/min (90-130); Glucose 158 mg/dL (65-115); Osmolality Calculated 283 mOsm/kg (285-295); Potassium 3.7 mmol/L (3.5-5.1); Sodium 136 mmol/L (136-145); Total Bilirubin 0.4 mg/dL (0.15-1.2); Total Protein 7.5 g/dL (6.6-8.7)
[2023-04-01 22:38] VITALS: RESP 18
[2023-04-01 22:38] LABS: Procalcitonin 0.07 ng/mL (0-0.5)
[2023-04-01] MEDS: fentaNYL 50 mcg/mL INJ 2mL 25 MCG IVP (22:38)
[2023-04-01] MEDS: metoclopramide 5 mg/mL SDV 2 mL 10 MG IVP (22:39)
[2023-04-01 22:42] VITALS: BP 168/88; PULSE 112; O2SAT 98
--- NOTE | 2023-04-01 23:43 | PC.PHAR ---
Pharmacokinetic dosing service Date: 04/01/23 Time: 2343 Objective: Patient: Shamar Mariscal Floor: ED-13 Age: 27 yo Serum creatinine: 0.5 mg/dL Height: 70.0 Inches Weight (kg): 106.594 Diagnosis: Relevant medical/social history: Cultures and sensitivities: Other labs: Assessment: IBW (kg): 73.00 Dosing wt(kg): 106.594 Estimated Creatinine clearance (ml/min): 130 Clearance limited to 130 ml/min to reduce risk of overdosing. CRCL method: Cockcroft and Gault using ibw(default). Drug selected: Vancomycin Loading dose (mg): 0 Vd (liters): 95.9 (factor used: 0.9 L/kg) Tamir (hr-1): 0.112 Half life (hrs): 6.19 Recommended dose: 1500 mg Interval: 8 hrs Infusion time (hrs): 1.5 Predicted peak (mcg/mL): 24.3 Predicted trough (mcg/mL): 11.73 Total body weight is being used for vancomycin dosing. Renal function is stable [ ] /unstable [ ] Recommendations: Give Vancomycin 1500 mg q 8 hrs with an expected Cpeak of 24.3 mcg/ml and an expected Ctrough of 11.73 mcg/ml Renal dosing of other antibiotics (review renal dosing of other medications and list guidelines here): Thank you for the consult, will continue to follow. Signature: Jennifer Obregon [facility]
[2023-04-01 23:58] LABS: Amphetamines Screen Urine Positive (Negative); Barbiturates Screen Urine Negative (Negative); Benzodiazepines Screen Urine Positive (Negative); Cocaine Screen Urine Negative (Negative); Opiate Screen Urine Negative (Negative); PCP Screen Urine Negative (Negative); THC Screen Urine Positive (Negative)
[2023-04-02 00:04] LABS: Add Urine Culture? Yes; Add Urine Microscopic? YES; Bilirubin Urine Neg (Negative); Blood Urine Trace (Negative); Glucose Urine UA Norm (Normal); Ketones Urine Negative (Negative); Leukocyte Esterase Urine 2+ (Negative); Nitrate Urine Positive (Negative); Protein Urine Neg (Negative); RBC Urine 0-4 /hpf (0-2); Specific Gravity, Urine 1.005 (1.005-1.030); Squamous Epithelial Cell Urine RARE /hpf (0-5); Urine Appearance Hazy (CLEAR); Urine Color Yellow (Yellow); Urobilinogen Urine Neg (Negative); pH Urine 6 (5-7)
[2023-04-02] MEDS: vancomycin 1,500 MG/300 ML PIGGYBACK 200 MG IV ×3 (00:17→23:18)
[2023-04-02 00:43] VITALS: BP 141/88; PULSE 107; RESP 18; O2SAT 98
[2023-04-02] MEDS: piperacillin-tazobactam 3.375 GM in sodium chloride 0.9% (plus) 50 ML IV ×3 (02:33→17:24)
[2023-04-02] MEDS: fentaNYL 50 mcg/mL INJ 2mL IVP (03:13)
[2023-04-02 03:18] VITALS: BP 124/79; PULSE 99; RESP 22; O2SAT 94
[2023-04-02 06:58] LABS: HIV 1 & 2 Antibody Non-Reactive (Non-Reactiv); HIV 1 & 2 Antigen Non-Reactive (Non-Reactiv)
[2023-04-02] MEDS: morphine 4 mg/mL SDV 1 mL IVP (07:04)
[2023-04-02] MEDS: diphenhydrAMINE 50 mg/mL SDV 1mL 25 MG IVP (07:04)
--- NOTE | 2023-04-02 07:09 | PC.NURSE ---
to room to assess and medicate pt. pt resting in room eyes closed. upon arrival, pt begins grunting and saying he is hurting. pt medicated with benadryl and morphine. no other needs identified at this time.
--- NOTE | 2023-04-02 08:05 | P.CONIM_ITS ---
Providers/Reason For Consult Consulting Physician/Specialty*: Denita Garcia.P.M./podiatry Reason for Consult*: Osteomyelitis left great toe Primary Care Provider: Lesia Moy MD History of Present Illness History of Present Illness Shamar Mariscal is a 27 year old male who presented to the emergency department on 04/01/2023 with complaint of worsening sores on his buttocks, legs, feet. The patient states that he has been dealing with these wounds off and on for some time now. He states that they will appear out of the blue and then they will subside. He denies any trauma to the area to incite these wounds and insists that they wax and wane on their own. Patient did present to the emergency department on 03/19/2023 where these wounds were present at that time. Patient was given antibiotics at that time. Patient states that his sores are painful despite his limited sensation to his lower extremities. Patient uses wheelchair for ambulation. He has a history of multiple lumbar surgeries and stenosis which resulted in a spinal infection. Patient also has an indwelling Nguyen catheter. Podiatry was consulted to evaluate bilateral feet and to provide recommendations given the finding of cortical erosion on the left hallux distal phalanx, consistent with osteomyelitis. Review of Systems General: Reports: 10 or more systems reviewed and unremarkable except in HPI and below Const: Denies: fever(s), chills, body aches or change in appetite Eyes: Denies: change in vision or blurry vision Card: Denies: chest pain, palpitations or irregular heart rhythm Resp: Denies: dyspnea GI: Denies: abdominal pain, nausea, vomiting or diarrhea Musc: Reports: joint stiffness Skin/Breast: Reports: non-healing lesions and lesions Neuro: Reports: numbness in extremities Medications/Allergies Home Medications Medication Instructions Recorded Confirmed Last Taken Type diazepam 5 mg tablet 5 mg PO .HS #30 tabs 02/23/23 04/02/23 Unknown Rx gabapentin 600 mg tablet 600 mg PO TID #90 tabs 02/23/23 04/02/23 Unknown Rx methocarbamol 750 mg tablet 750 mg PO BID #60 tabs 02/23/23 04/02/23 Unknown Rx oxycodone 10 mg tablet 10 mg PO Q8H PRN pain 30 days #90 03/16/23 04/02/23 Unknown Rx tabs mupirocin 2 % topical ointment 1 applic topical BID #22 grams 03/19/23 04/02/23 Unknown Rx carisoprodol 350 mg tablet 350 mg PO BID 04/02/23 04/02/23 Unknown History duloxetine 30 mg capsule,delayed 30 mg PO DAILY 04/02/23 04/02/23 Unknown History release naloxone 4 mg/actuation nasal 4 mg intranasal Q3M PRN Opioid 04/02/23 04/02/23 Unknown History spray (Narcan) Overdose oxycodone 30 mg tablet 15 mg PO Q6H PRN Pain 04/02/23 04/02/23 Unknown History trazodone 50 mg tablet 50 mg PO BEDTIME 04/02/23 04/02/23 Unknown History Allergies Allergy/AdvReac Type Severity Reaction Status Date / Time morphine Allergy ALGY-Rash Verified 04/02/23 07:33 Current Medications Generic Name Dose Route Start Last Admin Trade Name Freq PRN Reason Stop Dose Admin Piperacillin Sod/Tazobactam 50 mls @ 12.5 mls/hr 04/02/23 01:00 04/02/23 05:17 Sod 3.375 gm/ Sodium Chloride IV Infused Q8H TIARA Infusion Protocol Vancomycin/PEG/NADA/Lysine/Water 1,500 mg in 300 mls @ 200 mls/hr 04/02/23 00:00 04/02/23 02:20 Vancocin IV Infused Q8H TIARA Infusion PFSH Acute PFSH: Medical History Paralysis of both lower limbs Urinary retention Surgical History Hx of decompressive lumbar laminectomy Family History Grandfather Cancer Bladder Sister Psychiatric illness Denies family history of Diabetes CAD (coronary artery disease) Clotting disorder Dementia Chronic kidney disease (CKD) Hypertension Stroke Social History Smoking and tobacco status: current every day smoker e-cigarettes E-Cigarette Details: vaporizer device and with nicotine E-cig/vape details: using about 6-7 months, smoked cigarettes PPD x 12-13 yrs, started vaping 6 Second hand smoke exposure: No Alcohol intake: never Substance/Drug Use: former Date of last use: year ago Other details last substance use: Marijuana Caregiver/support person: Yes Lives independently: Yes Marital status: Single Highest education level completed: High School Graduate service: No Current occupational status: unemployed Current gender identity: Male Special michael needs: No Agree to transfusion: Yes Vitals/I&O/Wt Last Vital Signs Temp 99.4 F 04/01/23 20:40 Pulse 99 04/02/23 03:18 Resp 22 H 04/02/23 03:18 BP 124/79 04/02/23 03:18 Pulse Ox 94 04/02/23 03:18 O2 Del Method Room Air 04/02/23 03:18 04/01/23 04/02/23 04/02/23 22:59 06:59 14:59 Intake Total 350 / 350 Balance 350 / 350 Weight last 48 hrs Weight 235 lb Physical Exam Narrative: BELOW IS A FOCUSED LOWER EXTREMITY EXAM GENERAL: A&O x 3 VASCULAR: DP/PT pulses palpable 2/4 with CFT intact, <3seconds to distal digits DERMATOLOGICAL: Skin turgor and temperature is within normal limits. Left hallux has full-thickness ulceration in the absence of partial nail plate. No active drainage no surrounding erythema no proximal streaking, no malodor. Dry heme present, soiled wound. Right hallux shows similar lesion to the distal medial aspect of the nail plate with dried heme present appears to be chronic picking to distal toes which may have resulted in these ulcerations. Small excoriation to medial aspect of left foot with mild surrounding erythema no active drainage no purulence no signs of deep space abscess. MUSCULOSKELETAL: Pain with palpation of bilateral hallux. Contracted lower extremities. Bilateral musculoskeletal deficits NEUROLOGICAL: Neurological sensation to the affected foot and ankle is dimi nished Data 04/01/23 21:55 04/01/23 21:55 Micro: Microbiology 04/01/23 22:13 Blood Culture - Preliminary Blood SPECIMEN COLLECTED 04/01/23 21:55 Blood Culture - Preliminary Blood SPECIMEN COLLECTED A&P Assessment and plan (1) Skin ulcer: (2) Osteomyelitis: (3) Vasculitis: Plan LABS AND CLINICAL INFO: WBC 10.2 Temp 99.4 (on presentation) HR 137 (on presentation) RR 17 (on presentation) ESR 81 CRP 119 ABx: Vanco/Zosyn Toxicology: Positive for amphetamines, benzodiazepines and marijuana PLAN: -Okay for diet from podiatry standpoint -X-rays of left foot reveal cortical erosions to distal phalanx of left hallux consistent with osteomyelitis. This correlates with patient's wound clinically. Patient has excellent blood flow to the lower extremities. There appears to be early formation of distal hallux wound similar to the left with nail trauma. This could possibly be due to patient's nonambulatory status and using a wheel chair to get around. He could be bumping his feet into objects. However, I believe due to the chronicity of the wounds that self-inflicted causation cannot be ruled out. -Overall, left hallux appears stable clinically. No plans for urgent/emergent surgery at this time. If patient improves medically, amputation could reasonably be done on outpatient basis. This may change if patient does not i mprove medically -Betadine, dry sterile dressing to left hallux -Continue antibiotics -Trend labs -Continue work-up for more widespread vasculitic type lesions including the belly and legs -Discharge plan: To be determined -Podiatry will continue to follow and provide recommendations Coding Level of Care Code Acute Code for [facility] Diagnoses Skin ulcer L98.499 Osteomyelitis M86.9 Vasculitis I77.6
--- NOTE | 2023-04-02 08:23 | PM.HP ---
Providers/Chief Complaint Primary Care Provider: Lesia Moy MD Chief Complaint: sores on butt and legs History of Present Illness Shamar Mariscal is a 27 year old male with positive drug screen of benzodiazepine and methamphetamine came in for worsening skin ulcers on his lower extremities, his ulcers are painful, he is wheelchair dependent, has a chronic Nguyen catheter for previous lumbar surgeries resulting in spinal infection. In the ER he was diagnosed with osteomyelitis, Dr. Shelby examined him in the ER. Patient is stating that he is not able to tell what triggers his ulcers but he has been dealing with his skin ulcers for last 1 year he was seen at [place] by zigzag elastic attacher he is not sure what he was diagnosed with but he is stating that he was treated for a skin parasite, patient does endorse to smoking methamphetamine. He has been noticing fever at home not able to tell me how high. He is denying some/photosensitivity, he has not noticed any worsening of ulcers with sun exposure, he is not sure whether he is allergic to any particular material for bedsheets. He does try to pick on his skin. He has never experienced any ulcers above his waist. No previous diagnosis of autoimmune disease. Review of Systems Eyes: Denies: change in vision ENMT: Denies: throat pain Card: Denies: chest pain Resp: Denies: dyspnea GI: Denies: abdominal pain : Denies: flank pain Musc: Reports: back pain Skin/Breast: Reports: rash, pruritus, erythema, skin tenderness, skin swelling and changing lesions Neuro: Denies: headache(s) Psych: Reports: anxiety Endo: Denies: polyuria Bashir/Lymph: Denies: easy bruising Medications/Allergies Home Medications Medication Instructions Recorded Confirmed Last Taken Type diazepam 5 mg tablet 5 mg PO .HS #30 tabs 02/23/23 04/02/23 Unknown Rx gabapentin 600 mg tablet 600 mg PO TID #90 tabs 02/23/23 04/02/23 Unknown Rx methocarbamol 750 mg tablet 750 mg PO BID #60 tabs 02/23/23 04/02/23 Unknown Rx oxycodone 10 mg tablet 10 mg PO Q8H PRN pain 30 days #90 03/16/23 04/02/23 Unknown Rx tabs mupirocin 2 % topical ointment 1 applic topical BID #22 grams 03/19/23 04/02/23 Unknown Rx carisoprodol 350 mg tablet 350 mg PO BID 04/02/23 04/02/23 Unknown History duloxetine 30 mg capsule,delayed 30 mg PO DAILY 04/02/23 04/02/23 Unknown History release naloxone 4 mg/actuation nasal 4 mg intranasal Q3M PRN Opioid 04/02/23 04/02/23 Unknown History spray (Narcan) Overdose oxycodone 30 mg tablet 15 mg PO Q6H PRN Pain 04/02/23 04/02/23 Unknown History trazodone 50 mg tablet 50 mg PO BEDTIME 04/02/23 04/02/23 Unknown History Allergies Allergy/AdvReac Type Severity Reaction Status Date / Time morphine Allergy ALGY-Rash Verified 04/02/23 07:33 PFSH Acute PFSH: Medical History Paralysis of both lower limbs Urinary retention Surgical History Hx of decompressive lumbar laminectomy Family History Grandfather Cancer Bladder Sister Psychiatric illness Denies family history of Diabetes CAD (coronary artery disease) Clotting disorder Dementia Chronic kidney disease (CKD) Hypertension Stroke Social History Smoking and tobacco status: current every day smoker e-cigarettes E-Cigarette Details: vaporizer device and with nicotine E-cig/vape details: using about 6-7 months, smoked cigarettes PPD x 12-13 yrs, started vaping 6 Second hand smoke exposure: No Alcohol intake: never Substance/Drug Use: former Date of last use: year ago Other details last substance use: Marijuana Caregiver/support person: Yes Lives independently: Yes Marital status: Single Highest education level completed: High School Graduate service: No Current occupational status: unemployed Current gender identity: Male Special michael needs: No Agree to transfusion: Yes Vitals/I&O/Wt Last Vital Signs Temp 99.4 F 04/01/23 20:40 Pulse 99 04/02/23 03:18 Resp 22 H 04/02/23 03:18 BP 124/79 04/02/23 03:18 Pulse Ox 94 04/02/23 03:18 O2 Del Method Room Air 04/02/23 03:18 04/01/23 04/02/23 04/02/23 22:59 06:59 14:59 Intake Total 350 / 350 Balance 350 / 350 Weight last 48 hrs Weight 106.594 kg Physical Exam Narrative: Patient is laying in left lateral position Skin excoriation with superficial skin sloughing without any vesicles, mild serous drainage noted around buttocks, is also started from his buttocks area and Towards groin, no crepitation Tender to palpate Multiple round shaped skin sloughing noted around knees and shins, osteomyelitis of left foot, Awake and alert Chronic indwelling catheter Nonfocal neuro exam Pleasant and cooperative Patient appears anxious Patient endorses to visual hallucination Data 04/03/23 06:35 04/03/23 06:35 Micro: Microbiology 04/01/23 22:13 Blood Culture - Preliminary Blood SPECIMEN COLLECTED 04/01/23 21:55 Blood Culture - Preliminary Blood SPECIMEN COLLECTED A&P Assessment and plan (1) Skin ulcer: (2) Osteomyelitis: (3) Vasculitis: (4) Liver fibrosis: (5) Paralysis of both lower limbs: (6) Hx of decompressive lumbar laminectomy: (7) Polysubstance abuse: Plan Skin ulcers Concern for vasculitis Requested blood cultures, will request echo if she remains febrile Continue antibiotics We will request autoimmune disease work-up with DINESH and SLE profile and porphyrins We will status post with dermatology on Monday if skin biopsy is needed, if biopsy is needed we can ask general surgery as well I would be reluctant to add steroids at this point Polysubstance abuse positive for methamphetamine patient endorses to smoking marijuana and meth Chronic indwelling catheter For skin ulcer will use topical antibiotic, zinc oxide cream around buttocks, clean wound with Betadine, dry sterile dressing, daily dressing change toes Dr. Shelby podiatry on board, will touch with dermatology tomorrow, Attestations Medical Necessity Statement*: More than 2 midnights anticipated Diagnoses Skin ulcer L98.499 Osteomyelitis M86.9 Vasculitis I77.6 Liver fibrosis K74.00 Paralysis of both lower limbs G82.20 Hx of decompressive lumbar laminectomy Z98.890 Polysubstance abuse F19.10
[2023-04-02 09:40] LABS: Procalcitonin 0.09 ng/mL (0-0.5)
[2023-04-02] MEDS: oxyCODONE IR 30 mg Tablet 15 MG PO ×3 (10:50→23:19)
[2023-04-02 10:57] LABS: D Dimer 1.53 ug/mLFEU (0-0.59)
[2023-04-02 14:28] LABS: Hepatitis A Antibody IgM Non-Reactive (Nonreactive); Hepatitis B Core AB, Total Reactive (Nonreactive); Hepatitis B Surface AB 93.2 (11.5-1000); Hepatitis B Surface Antigen Non-Reactive (Nonreactive); Hepatitis C Virus Antibody Reactive (Nonreactive)
[2023-04-02 14:37] LABS: Estmated Average Glucose 108; Hemoglobin A1C 5.4 % (4.0-6.0)
[2023-04-02 15:12] LABS: Vitamin B12 308 pg/mL (232-1245)
[2023-04-02] MEDS: vancomycin 1,500 MG/300 ML PIGGYBACK 150 MG IV (17:24)
[2023-04-02] MEDS: sodium chloride 0.9% 1,000 ML 75 ML IV (17:24)
[2023-04-02] MEDS: mupirocin oint 22 gm 1 APPLIC TOPICAL (17:25)
[2023-04-02] MEDS: gabapentin 300 mg Capsule 600 MG PO ×2 (17:28→20:42)
[2023-04-02] MEDS: bacitracin ointment 28 gm TOPICAL (17:29)
[2023-04-02 20:29] VITALS: BP 106/62; PULSE 92; RESP 19; TEMP 38.2; O2SAT 98
[2023-04-02] MEDS: methocarbamol 750 mg Tablet PO (20:42)
[2023-04-02 23:19] VITALS: RESP 22; O2SAT 94
[2023-04-03] VITALS (8 sets, daily range): BP systolic 102–139; BP diastolic 53–77; PULSE 67–96; RESP 16–22; TEMP 36.8–37.7; O2SAT 94–98
[2023-04-03] MEDS: piperacillin-tazobactam 3.375 GM in sodium chloride 0.9% (plus) 50 ML IV ×3 (01:36→18:00)
[2023-04-03] MEDS: oxyCODONE IR 30 mg Tablet 15 MG PO ×3 (05:20→18:01)
[2023-04-03 06:52] LABS: Basophils % 0.2 %; Eosinophils # 0.4 10^3/uL (0.0-0.8); Eosinophils % 4.8 %; Hematocrit 29.1 % (37-53); Lymphocytes # 1.8 10^3/uL (0.8-4.8); Lymphocytes % 21.6 %; Mean Corpuscular HGB Conc 30.9 g/dL (30-55); Mean Corpuscular Hemoglobin 24.8 pg (27-33); Mean Corpuscular Volume 80.2 fl (82-101); Mean Platelet Volume 8.5 fL (7.4-10.4); Monocytes # 0.7 10^3/uL (0.2-0.9); Monocytes % 8.2 %; Neutrophils # 5.36 10^3/uL (1.8-7.7); Neutrophils % 63.2 %; Nucleated Red Blood Cells % 0 %; Platelet Count 472 10^3/cmm (157-399); Red Blood Count 3.63 10^6/uL (3.85-5.65); White Blood Count 8.49 10^3/uL (3.29-11.43)
[2023-04-03 07:11] LABS: Anion Gap 11.7 (5-19); Blood Urea Nitrogen 9 mg/dL (6-20); C Reactive Protein 139.5 mg/L (0.0-4.9); Calcium 8.2 mg/dL (8.5-10.5); Carbon Dioxide 24 mmol/L (22-29); Chloride 106 mmol/L (98-107); Glomerular Filtration Rate 196.6 mL/min (90-130); Glucose 122 mg/dL (65-115); Magnesium 1.9 mg/dL (1.7-2.3); Osmolality Calculated 286 mOsm/kg (285-295); Phosphorus 3.7 mg/dL (2.5-4.5); Potassium 3.7 mmol/L (3.5-5.1); Sodium 138 mmol/L (136-145)
[2023-04-03 07:26] LABS: Vancomycin Trough 14.4 ug/mL (10-15)
--- NOTE | 2023-04-03 07:38 | P.PN_ITS ---
Subjective Subjective: Patient seen at bedside this morning. Patient states that he was experiencing pain in his buttocks, shins and feet. These were attributed to his wounds. He states that he wants to know what is causing them to pop out. Vitals/I&O/Wt Last Vital Signs Temp 99.9 F H 04/03/23 04:46 Pulse 87 04/03/23 04:46 Resp 22 H 04/03/23 05:20 BP 130/77 04/03/23 04:46 Pulse Ox 97 04/03/23 04:46 O2 Del Method Room Air 04/03/23 00:01 04/02/23 04/03/23 04/03/23 22:59 06:59 14:59 Intake Total 420 / 770 940 / 1710 Output Total 350 / 350 500 / 850 Balance 70 / 420 440 / 860 Weight last 48 hrs Weight 235 lb Physical Exam Narrative: BELOW IS A FOCUSED LOWER EXTREMITY EXAM GENERAL: A&O x 3 VASCULAR: DP/PT pulses palpable 2/4 with CFT intact, <3seconds to distal digits DERMATOLOGICAL: Skin turgor and temperature is within normal limits. Left hallux has full-thickness ulceration in the absence of partial nail plate. No active drainage no surrounding erythema no proximal streaking, no malodor. Dry heme present, soiled wound. Right hallux shows similar lesion to the distal medial aspect of the nail plate with dried heme present appears to be chronic picking to distal toes which may have resulted in these ulcerations. Small excoriation to medial aspect of left foot with mild surrounding erythema no active drainage no purulence no signs of deep space abscess. MUSCULOSKELETAL: Pain with palpation of bilateral hallux. Contracted lower extremities. Bilateral musculoskeletal deficits NEUROLOGICAL: Neurological sensation to the affected foot and ankle is diminished Data 04/03/23 06:35 04/03/23 06:35 Micro: Microbiology 04/01/23 22:13 Blood Culture - Preliminary Blood NEGATIVE TO DATE 04/01/23 21:55 Blood Culture - Preliminary Blood NEGATIVE TO DATE A&P Assessment and plan (1) Skin ulcer: (2) Osteomyelitis: (3) Vasculitis: Plan LABS AND CLINICAL INFO: WBC 8.49 Temp 100.8 overnight HR 92 RR 22 ESR 81 CRP 119 ABx: Vanco/Zosyn Toxicology: Positive for amphetamines, benzodiazepines and marijuana PLAN: -Okay for diet from podiatry standpoint -X-rays of left foot reveal cortical erosions to distal phalanx of left hallux consistent with osteomyelitis. This correlates with patient's wound clinically. Patient has excellent blood flow to the lower extremities. There appears to be early formation of distal hallux wound similar to the left with nail trauma. This could possibly be due to patient's nonambulatory status and using a wheelchair to get around. He could be bumping his feet into objects. However, I believe due to the chronicity of the wounds that self-inflicted causation ca nnot be ruled out. -Overall, left hallux appears stable clinically. No acute surgical intervention by podiatry at this time. Recommend local wound care -Betadine, dry sterile dressing to left hallux -Continue antibiotics -Trend labs -Continue work-up for more widespread vasculitic type lesions including the belly and legs -Discharge plan: To be determined -Podiatry will continue to follow and provide recommendations Attestations Medical Necessity Statement*: See hospitalist note. Coding Level of Care Code Acute Code for [facility] Diagnoses Skin ulcer L98.499 Osteomyelitis M86.9 Vasculitis I77.6
[2023-04-03] MEDS: gabapentin 300 mg Capsule 600 MG PO ×3 (08:45→21:18)
[2023-04-03] MEDS: methocarbamol 750 mg Tablet PO ×2 (08:45→19:29)
[2023-04-03] MEDS: vancomycin 1,500 MG/300 ML PIGGYBACK 200 MG IV ×2 (08:45→18:00)
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
[2023-04-03] MEDS: methylPREDNISolone sod succ 40 MG in water for injection-sterile 1 ML 12 MG IVP ×2 (11:06→22:10)
[2023-04-03] MEDS: sodium chloride 0.9% 1,000 ML 75 ML IV (17:59)
[2023-04-03] MEDS: bacitracin ointment 28 gm TOPICAL ×2 (19:27→19:28)
[2023-04-03] MEDS: mupirocin oint 22 gm 1 APPLIC TOPICAL (19:28)
[2023-04-04] VITALS (10 sets, daily range): BP systolic 112–145; BP diastolic 62–83; PULSE 63–89; RESP 16–18; TEMP 36.6–37.2; O2SAT 94–97
[2023-04-04] MEDS: vancomycin 1,500 MG/300 ML PIGGYBACK 200 MG IV ×3 (00:08→15:48)
[2023-04-04] MEDS: oxyCODONE IR 30 mg Tablet 15 MG PO ×4 (00:08→22:07)
[2023-04-04] MEDS: piperacillin-tazobactam 3.375 GM in sodium chloride 0.9% (plus) 50 ML IV ×3 (01:59→20:19)
[2023-04-04 05:32] LABS: Basophils % 0.1 %; Eosinophils % 0.1 %; Hematocrit 32.7 % (37-53); Lymphocytes # 1.1 10^3/uL (0.8-4.8); Lymphocytes % 13.5 %; Mean Corpuscular HGB Conc 30.3 g/dL (30-55); Mean Corpuscular Hemoglobin 24.2 pg (27-33); Mean Platelet Volume 8.3 fL (7.4-10.4); Monocytes # 0.5 10^3/uL (0.2-0.9); Monocytes % 5.7 %; Neutrophils # 6.56 10^3/uL (1.8-7.7); Neutrophils % 79.6 %; Nucleated Red Blood Cells % 0 %; Platelet Count 582 10^3/cmm (157-399); Red Blood Count 4.09 10^6/uL (3.85-5.65); Red Cell Distribution Width 15.6 % (12.1-15.1); White Blood Count 8.24 10^3/uL (3.29-11.43)
[2023-04-04 05:55] LABS: Anion Gap 16.5 (5-19); Blood Urea Nitrogen 9 mg/dL (6-20); Calcium 8.5 mg/dL (8.5-10.5); Carbon Dioxide 22 mmol/L (22-29); Chloride 106 mmol/L (98-107); Glomerular Filtration Rate 254.3 mL/min (90-130); Glucose 145 mg/dL (65-115); Osmolality Calculated 291 mOsm/kg (285-295); Potassium 4.5 mmol/L (3.5-5.1); Sodium 140 mmol/L (136-145)
[2023-04-04] MEDS: sodium chloride 0.9% 1,000 ML 75 ML IV (06:38)
[2023-04-04 06:45] LABS: Glucose Point of Care 174 mg/dL (70-110)
[2023-04-04] MEDS: gabapentin 300 mg Capsule 600 MG PO ×3 (09:42→20:18)
[2023-04-04] MEDS: methocarbamol 750 mg Tablet PO ×2 (09:42→18:32)
[2023-04-04] MEDS: mupirocin oint 22 gm 1 APPLIC TOPICAL ×2 (09:43→18:32)
--- NOTE | 2023-04-04 10:06 | PC.CHAP ---
Pastoral Care Encounter/Spiritual Assessment Type of Contact [] Declined dialysis rn visit [] Patient/Family/Request visit [] Outpatient visit [] Follow-up visit [] Physician referral [] Code/Alert [] Routine visit [] Staff referral [] Actively dying [x] Patient sleeping [] Family support [] [] Out of room [] Palliative care [] [] Receiving care in room [] Pre-surgical visit [] Trauma [] Long length of stay [] ICU visit [] Other: Relational/Emotional Strength [] Patient feels connected with others/family/visitors/staff [] Distress [] Loneliness/isolation [] Abandonment Spirituality of Patient [] Person of Daniella [] Attends Buddhist of their Daniella [] Believes in Prayer [] Reads Bible or Mandaeism materials [] There are Spiritual issues to be addressed Information Technology Project Manager Interventions [] Prayer [] Active listening [] Non-anxious presence [] Spiritual/emotional support [] Crisis/trauma care [] Spiritual counseling [] Bereavement support [] Provided bereavement packet [] Provided Bible/devotional materials [] Provided toy/stuffed animal, coloring book to patient or family member [] Provided Communion [] Anointing/[place] [] Salvation [] Completed spiritual assessment [] Other: Impact on Illness or Injury [] Angry [] Fearful [] Anxious [] Often cries [] Exhaustion [] Unable to work [] Unable to attend gnosticist [] Unable to walk/stand [] Unable to read [] Unable to drive [] Unable to eat/drink [] Unable to sleep [] Unable to be with family [] Patient intubated [] Other: Summary Time spent with patient
--- NOTE | 2023-04-04 10:18 | PM.PN ---
Subjective Subjective: Spoke with Dr. Marx Patient will likely need a skin biopsy tomorrow Continue steroids No fever or leukocytosis Vitals/I&O/Wt Last Vital Signs Temp 98.2 F 04/04/23 07:30 Pulse 89 04/04/23 07:30 Resp 18 04/04/23 09:43 BP 123/67 04/04/23 07:30 Pulse Ox 96 04/04/23 07:30 O2 Del Method Room Air 04/04/23 07:27 04/03/23 04/04/23 04/04/23 22:59 06:59 14:59 Intake Total 592 / 2122 1758.75 / 3880.75 Output Total 250 / 250 1500 / 1750 Balance 342 / 1872 258.75 / 2130.75 Physical Exam Narrative: Multiple skin ulcers starting from waist extending all the way up to his toes Toe osteomyelitis without significant improvement Chronic indwelling catheter Patient laying in right lateral position Multiple scars on his back for previous surgery Awake and alert GCS 15 No new focal deficit S1, S2 Currently on room air Data 04/04/23 05:23 04/04/23 05:23 Micro: Microbiology 04/01/23 23:40 Urine Culture - Preliminary Urine,Clean Catch Gram Negative Rods A&P Assessment and plan (1) Polysubstance abuse: (2) Skin ulcer: (3) Osteomyelitis: (4) Vasculitis: (5) Liver fibrosis: (6) Paralysis of both lower limbs: (7) Hx of decompressive lumbar laminectomy: Plan Skin ulcers Autoimmune disease work-up is pending We will request punch biopsy, will speak with Dr. Garza today Continue steroids patient has not received treatment for hepatitis C in the past, no active decompensated liver cirrhosis signs present For osteomyelitis most likely he will need 6 weeks of IV antibiotics, will request PICC line, Spoke with Dr. Marx furnace repairer helper as well Appreciate podiatry recommendations Full code It might be very hard for him to go to rehab/SNF's secondary to polysubstance abuse If SNF/retirement is not an option then we might be able to get home health services for IV antibiotics and wound care Attestations Medical Necessity Statement*: Continue medical management Diagnoses Polysubstance abuse F19.10 Skin ulcer L98.499 Osteomyelitis M86.9 Vasculitis I77.6 Liver fibrosis K74.00 Paralysis of both lower limbs G82.20 Hx of decompressive lumbar laminectomy Z98.890
[2023-04-04 11:19] LABS: Anti-Double Strand DNA AB <1 IU/mL; Jo-1 Antibody <1.0 NEG AI (<1.0 NEG); SM/RNP Antibodies <1.0 NEG AI (<1.0 NEG); SS-B/LA IGG <1.0 NEG AI (<1.0 NEG); Scleroderma Ab(Scl-70) Ab <1.0 NEG AI (<1.0 NEG); Smith Antibody <1.0 NEG AI (<1.0 NEG); Ss-A/Ro Igg <1.0 NEG AI (<1.0 NEG)
[2023-04-04] MEDS: methylPREDNISolone sod succ 40 MG in water for injection-sterile 1 ML 12 MG IVP ×2 (12:07→22:08)
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
--- NOTE | 2023-04-04 14:00 | PC.NURSE ---
PICC refusal. Referred to PICC nurse for PICC placement for 6 weeks antibiotics for osteo. Pt states he has had a PICC before in [place] and developed a heart infection. Pt states he does not want a PICC line. Pt care nurse, [facility], notified.
[2023-04-04] MEDS: bacitracin ointment 28 gm TOPICAL (18:32)
[2023-04-05] VITALS (11 sets, daily range): BP systolic 121–133; BP diastolic 62–75; PULSE 63–81; RESP 16–19; TEMP 36.6–37; O2SAT 96–98
[2023-04-05] MEDS: vancomycin 1,500 MG/300 ML PIGGYBACK 200 MG IV ×3 (00:12→17:14)
[2023-04-05] MEDS: piperacillin-tazobactam 3.375 GM in sodium chloride 0.9% (plus) 50 ML IV ×3 (01:50→20:55)
[2023-04-05] MEDS: oxyCODONE IR 30 mg Tablet 15 MG PO (04:28)
[2023-04-05 07:19] LABS: Basophils % 0.1 %; Lymphocytes # 1.3 10^3/uL (0.8-4.8); Lymphocytes % 13.8 %; Mean Corpuscular HGB Conc 30.9 g/dL (30-55); Mean Corpuscular Hemoglobin 24.5 pg (27-33); Mean Corpuscular Volume 79.2 fl (82-101); Mean Platelet Volume 8.3 fL (7.4-10.4); Monocytes # 0.4 10^3/uL (0.2-0.9); Monocytes % 4.1 %; Neutrophils # 7.43 10^3/uL (1.8-7.7); Neutrophils % 81.3 %; Nucleated Red Blood Cells % 0 %; Platelet Count 572 10^3/cmm (157-399); Red Blood Count 4.04 10^6/uL (3.85-5.65); Red Cell Distribution Width 15.7 % (12.1-15.1); White Blood Count 9.13 10^3/uL (3.29-11.43)
[2023-04-05 07:43] LABS: Anion Gap 13.4 (5-19); Blood Urea Nitrogen 11 mg/dL (6-20); Carbon Dioxide 25 mmol/L (22-29); Chloride 105 mmol/L (98-107); Glomerular Filtration Rate 196.6 mL/min (90-130); Glucose 112 mg/dL (65-115); Potassium 4.4 mmol/L (3.5-5.1); Sodium 139 mmol/L (136-145)
[2023-04-05 07:44] LABS: Calcium 8.5 mg/dL (8.5-10.5); Osmolality Calculated 288 mOsm/kg (285-295); Vancomycin Trough 16.6 ug/mL (10-15)
[2023-04-05] MEDS: methocarbamol 750 mg Tablet PO ×2 (08:12→17:13)
[2023-04-05] MEDS: gabapentin 300 mg Capsule 600 MG PO ×3 (08:12→20:54)
[2023-04-05] MEDS: mupirocin oint 22 gm 1 APPLIC TOPICAL ×2 (09:51→19:20)
--- NOTE | 2023-04-05 09:57 | PM.PN ---
Subjective Subjective: No overnight events No fever No leukocytosis Patient endorsing 1 small bowel movement Patient is stating that he takes oxycodone 30 mg at home and 15 mg in the hospital is not helping him a lot Status post punch biopsy of skin lesion Case discussed with x ray technologist as well Patient was against PICC line placement however with his IV drug abuse history he wont be able to go to any rehab, patient is stating that he does not have any place to go because he moved from [place] and his father dropped him off Right now he is willing to go to long-term acute care facility for 6 weeks of antibiotics and then go back to [place] with his father Case discussed with the telehealth case manager Vitals/I&O/Wt Last Vital Signs Temp 98.3 F 04/05/23 07:59 Pulse 73 04/05/23 08:41 Resp 16 04/05/23 08:41 BP 121/62 04/05/23 07:59 Pulse Ox 96 04/05/23 08:41 O2 Del Method Room Air 04/05/23 08:41 04/04/23 04/05/23 04/05/23 22:59 06:59 14:59 Intake Total 591 / 2132 400 / 2532 780 / 780 Output Total 1800 / 1800 1200 / 3000 Balance -1209 / 332 -800 / -468 780 / 780 Physical Exam Narrative: Patient laying in right lateral position Currently on room air Nguyen catheter in place Superficial skin sloughing noticed around gluteal region which is not showing any signs of worsening no exudative or worsening of cellulitis Toe osteomyelitis Multiple round shaped ulcers around knees and lower extremities Intertrigo abdominal pannus S1, S2 Nonfocal neuro exam Data 04/05/23 07:04 04/05/23 07:04 Micro: Microbiology 04/01/23 23:40 Urine Culture - Final Urine,Clean Catch Pseudomonas aeruginosa A&P Assessment and plan (1) Polysubstance abuse: (2) Skin ulcer: (3) Osteomyelitis: (4) Vasculitis: (5) Paralysis of both lower limbs: Plan Multiple skin ulcers: Autoimmune disease work-up is pending, no active worsening of ulcers Zinc oxide around gluteal region, topical antibiotic and daily dressing change twice a day Status post skin punch biopsy done by general surgery It will take about 4 to 5 days for final pathology result He has been started on steroids Concern for cryoglobulinemia for untreated hepatitis C related skin ulcer Polysubstance abuse, patient denies taking cocaine, there is no rash on the ears my suspicion for levamisole related skin eruption is low at this point Chronic indwelling catheter No fever at this point Urine culture showing Pseudomonas Blood cultures negative Osteomyelitis of toes: Patient will need 6 weeks of IV antibiotics he will need anti-MRSA antipseudomonal coverage Will request echo as well my suspicion for endocarditis is low Patient is agreeable to get PICC line placed Appreciate podiatry recommendations Full code Optimize opioid regimen Continue bowel regimen DVT prophylaxis on board Untreated hepatitis C He can follow-up with his PCP for 90-day hepatitis C treatment outpatient Attestations Medical Necessity Statement*: Continue medical management Diagnoses Polysubstance abuse F19.10 Skin ulcer L98.499 Osteomyelitis M86.9 Vasculitis I77.6 Paralysis of both lower limbs G82.20
--- NOTE | 2023-04-05 10:02 | USCV_ITS ---
Shamar Mariscal Age: 27 Gender: M : 1995 Exam Date: 04/05/2023 10:23 Ordering Phys: Bunny Dawson MD Technologist: CT Exam Location: [facility] [place] Indication: fever, possible vegitation BP: 138 / 80 HR: 69 Rhythm: Sinus Technical Quality: Adequate MEASUREMENTS (Male / Female) Normal Values 2D ECHO LV Chamber Size 4.8 cm RV Chamber Size 3.8 cm LVOT Diameter 2.1 cm LV Ejection Fraction MOD 2C 64.8 % LV Ejection Fraction 2C AL 65.2 % LA Diameter 3.2 cm LA Width 3.3 cm LA Height 4.3 cm RA Width 3.7 cm RA Height 5.2 cm Aorta at Sinotubular Diameter 2.2 cm IVC Diameter 1.7 cm M-MODE Aortic Annulus Diameter 3.5 cm LA Ao Ratio MM 1.0 MV E Point Septal Separation 0.8 cm DOPPLER AV Peak Velocity 141.0 cm/s LVOT Peak Velocity 120.0 cm/s AV Area Cont Eq vti 2.7 cm squared AV Area Cont Eq pk 3.0 cm squared MV Area PHT 3.7 cm squared Mitral E to A Ratio 1.5 MV E' Velocity 52.0 cm/s Mitral E to MV E' Ratio 6.8 Mitral E to LV E' Lateral Ratio 5.5 Mitral E to LV E' Septal Ratio 8.9 TR Peak Velocity 71.3 cm/s TR Peak Gradient 2.0 mmHg TV Peak E Velocity 85.0 cm/s Right Atrial Pressure 3.0 mmHg Pulmonary Artery Systolic Pressu 5.0 mmHg PV Peak Velocity 119.0 cm/s FINDINGS Left Ventricle Left ventricle is normal in size. LV systolic function is normal with EF of 60 to 65%. No regional wall motion abnormalities are seen. Right Ventricle Normal in size and function Right Atrium Normal in size Left Atrium Normal in size Mitral Valve Structurally normal mitral valve. Trace mitral regurgitation. Aortic Valve Structurally normal aortic valve. No significant stenosis or regurgitation. Tricuspid Valve Not well visualized. Mild tricuspid regurgitation. Insufficient TR jet to evaluate RVSP. Pulmonic Valve Not well-visualized Pericardium Normal Aorta Normal in size IVC Appears to be normal CONCLUSIONS LV systolic function is normal with EF of 60 to 65%. Trace mitral regurgitation Mild tricuspid regurgitation No comparison studies are available Chandana Tran MD (Electronically Signed) Final Date: 05 April 2023 18:37 S
[2023-04-05] MEDS: methylPREDNISolone sod succ 40 MG in water for injection-sterile 1 ML 12 MG IVP ×2 (10:59→20:54)
[2023-04-05] MEDS: oxyCODONE IR 30 mg Tablet PO ×3 (10:59→22:56)
[2023-04-05] MEDS: sennosides-docusate Tablet 1 TAB PO (10:59)
[2023-04-05] MEDS: enoxaparin 40 mg/0.4 mL Syringe SUBCUT (11:00)
--- NOTE | 2023-04-05 11:21 | PC.CHAP ---
Pastoral Care Encounter/Spiritual Assessment Type of Contact [] Declined butcher visit [] Patient/Family/Request visit [] Outpatient visit [] Follow-up visit [] Physician referral [] Code/Alert [x] Routine visit [] Staff referral [] Actively dying [] Patient sleeping [] Family support [] [] Out of room [] Palliative care [] [] Receiving care in room [] Pre-surgical visit [] Trauma [] Long length of stay [] ICU visit [] Other: Relational/Emotional Strength [x] Patient feels connected with others/family/visitors/staff [] Distress [] Loneliness/isolation [] Abandonment Spirituality of Patient [] Person of Daniella [] Attends Uatsdin of their Daniella [] Believes in Prayer [] Reads Bible or Lutheran materials [] There are Spiritual issues to be addressed Purchasing Director Interventions [x] Prayer [] Active listening [] Non-anxious presence [] Spiritual/emotional support [] Crisis/trauma care [] Spiritual counseling [] Bereavement support [] Provided bereavement packet [] Provided Bible/devotional materials [] Provided toy/stuffed animal, coloring book to patient or family member [] Provided Communion [] Anointing/[place] [] Salvation [] Completed spiritual assessment [] Other: Impact on Illness or Injury [] Angry [] Fearful [] Anxious [] Often cries [] Exhaustion [] Unable to work [] Unable to attend holiness [] Unable to walk/stand [] Unable to read [] Unable to drive [] Unable to eat/drink [] Unable to sleep [] Unable to be with family [] Patient intubated [] Other: Summary Time spent with patient 10 min
--- NOTE | 2023-04-05 11:36 | XR_ITS ---
WS: [id number] Portable AP supine chest, 04/05/2023 Clinical Data: Post PICC insertion Comparison: Portable chest, 03/19/2023 Findings: The right PICC line ends at the caval atrial junction. No pneumothorax is seen. Impression: Satisfactory insertion of right PICC line.
--- NOTE | 2023-04-05 12:00 | PC.NURSE ---
Single lumen PICC placed to right basilic vein. Pt referred for PICC placement for IV antibiotics x 6 weeks. Pt refused yesterday, but after speaking with care team, consents to PICC today. Risks and benefits discussed and informed consent obtained from patient. Right arm assessed with right basilic vein measuring 4.3 mm, straight, and apparent best choice for placement. Mid-arm circumference measured 10 cm from right AC 33 cm. Trimmed cath 49 cm with 2 cm external length noted. CXR shows tip in distal SVC, cavoatrial junction, in good position for use per radiologist. Line secured with stat-lock. Insertion site covered with Biopatch and TSM. Report given to bedside nurseJosephine.
[2023-04-05] MEDS: bacitracin ointment 28 gm TOPICAL ×2 (12:03→19:19)
[2023-04-05 15:40] LABS: Anti-Nuclear Antibody Screen NEGATIVE (NEGATIVE)
[2023-04-05 18:38] LABS: Zinc Level, Serum or Plasma 38 mcg/dL (60-130)
[2023-04-05 22:39] LABS: HEP C RNA Viral Load Quant <1.18 NOT DETECTED Log IU/mL (NOT DETECTED); HEP C RNA Viral Load Quant <15 NOT DETECTED IU/mL (NOT DETECTED)
[2023-04-06] VITALS (12 sets, daily range): BP systolic 113–136; BP diastolic 61–75; PULSE 55–84; RESP 16–18; TEMP 36.7–37.5; O2SAT 94–96
[2023-04-06] MEDS: vancomycin 1,500 MG/300 ML PIGGYBACK 200 MG IV ×3 (00:44→16:28)
[2023-04-06] MEDS: piperacillin-tazobactam 3.375 GM in sodium chloride 0.9% (plus) 50 ML IV ×3 (02:59→20:31)
[2023-04-06] MEDS: oxyCODONE IR 30 mg Tablet PO ×4 (04:52→23:09)
--- NOTE | 2023-04-06 08:05 | P.PN_ITS ---
Subjective Subjective: Patient seen at bedside this morning. Resting comfortably. No overnight events. Vitals/I&O/Wt Last Vital Signs Temp 98.1 F 04/06/23 07:34 Pulse 55 L 04/06/23 07:34 Resp 16 04/06/23 07:34 BP 113/70 04/06/23 07:34 Pulse Ox 94 04/06/23 07:34 O2 Del Method Room Air 04/05/23 20:44 04/05/23 04/06/23 04/06/23 22:59 06:59 14:59 Intake Total 781 / 2092 1480 / 3572 Output Total 1550 / 1550 1800 / 3350 Balance -769 / 542 -320 / 222 Physical Exam Narrative: BELOW IS A FOCUSED LOWER EXTREMITY EXAM GENERAL: A&O x 3 VASCULAR: DP/PT pulses palpable 2/4 with CFT intact, <3seconds to distal digits DERMATOLOGICAL: Skin turgor and temperature is within normal limits. Left hallux has full-thickness ulceration in the absence of partial nail plate. No a ctive drainage no surrounding erythema no proximal streaking, no malodor. Dry heme present, soiled wound. Right hallux shows similar lesion to the distal medial aspect of the nail plate with dried heme present appears to be chronic picking to distal toes which may have resulted in these ulcerations. Small excoriation to medial aspect of left foot with mild surrounding erythema no active drainage no purulence no signs of deep space abscess. MUSCULOSKELETAL: Pain with palpation of bilateral hallux. Contracted lower extremities. Bilateral musculoskeletal deficits NEUROLOGICAL: Neurological sensation to the affected foot and ankle is diminished Data 04/05/23 07:04 04/05/23 07:04 A&P Assessment and plan (1) Skin ulcer: (2) Osteomyelitis: (3) Vasculitis: Plan LABS AND CLINICAL INFO: WBC 9.13 Temp 98.1 VSS ESR 81 CRP 139.5 ABx: Vanco/Zosyn Toxicology: Positive for amphetamines, benzodiazepines and marijuana PLAN: -Okay for diet from podiatry standpoint -X-rays of left foot reveal cortical erosions to distal phalanx of left hallux consistent with osteomyelitis. This correlates with patient's wound clinically. Patient has excellent blood flow to the lower extremities. There appears to be early formation of distal hallux wound similar to the left with nail trauma. This could possibly be due to patient's nonambulatory status and using a wheelchair to get around. He could be bumping his feet into objects. However, I believe due to the chronicity of the wounds that self-inflicted causation cannot be ruled out. -Overall, left hallux remains stable clinically. No acute surgical intervention by podiatry at this time. Recommend local wound care -Betadine, dry sterile dressing to left hallux -Continue antibiotics -Trend labs -Continue work-up for more widespread vasculitic type lesions including the belly and legs -No further intervention by podiatry during this admission. -Discharge plan: PICC line with 6 weeks IV antibiotics with discharge to care facility. Recommend follow-up with podiatry within 1 week of discharge. -Podiatry will continue to follow and provide recommendations Attestations Medical Necessity Statement*: See hospitalist note Coding Level of Care Code Acute Code for Chg Fwd Diagnoses Skin ulcer L98.499 Osteomyelitis M86.9 Vasculitis I77.6
[2023-04-06] MEDS: methocarbamol 750 mg Tablet PO ×2 (08:24→17:13)
[2023-04-06] MEDS: sennosides-docusate Tablet 1 TAB PO (08:24)
[2023-04-06] MEDS: gabapentin 300 mg Capsule 600 MG PO ×3 (08:24→20:31)
--- NOTE | 2023-04-06 10:02 | PM.PN ---
Subjective Subjective: No fever overnight LTAC will start screening and prior Auth Continue IV antibiotics Fever subsided status post right arm PICC line placement Urine culture showing Pseudomonas Patient definitely needs anti-MRSA antipseudomonal coverage via IV for his active wound Status post and biopsy, pathology results are pending Vitals/I&O/Wt Last Vital Signs Temp 98.1 F 04/06/23 07:34 Pulse 63 04/06/23 08:27 Resp 16 04/06/23 08:27 BP 113/70 04/06/23 07:34 Pulse Ox 95 04/06/23 08:27 O2 Del Method Room Air 04/06/23 08:27 04/05/23 04/06/23 04/06/23 22:59 06:59 14:59 Intake Total 781 / 2092 1480 / 3572 Output Total 1550 / 1550 1800 / 3350 Balance -769 / 542 -320 / 222 Physical Exam Narrative: Patient laying in right lateral position Right arm PICC line in place Wound showing signs of healing No active worsening with purulence or excessive drainage Multiple scars on his back Abdominal pannus intertrigo without acute worsening No acute pain S1, S2 GCS 15 Currently on room air Data 04/05/23 07:04 04/05/23 07:04 A&P Assessment and plan (1) Polysubstance abuse: (2) Skin ulcer: (3) Osteomyelitis: (4) Vasculitis: (5) Liver fibrosis: (6) Paralysis of both lower limbs: Plan Multiple skin ulcers Fever subsided Continue IV steroids until we see pathology report Status post punch biopsy pathology results pending Urine culture showing Pseudomonas Patient will need anti-MRSA antipseudomonal coverage for osteomyelitis of his toes for at least 6 weeks Pending LTAC prior Auth approval Full code Cardiac diet Pain well managed Continue bowel regimen Topical antibiotics, zinc oxide on board for wound care Attestations Medical Necessity Statement*: Continue medical management Diagnoses Polysubstance abuse F19.10 Skin ulcer L98.499 Osteomyelitis M86.9 Vasculitis I77.6 Liver fibrosis K74.00 Paralysis of both lower limbs G82.20
[2023-04-06] MEDS: methylPREDNISolone sod succ 40 MG in water for injection-sterile 1 ML 12 MG IVP ×2 (10:08→21:35)
[2023-04-06] MEDS: enoxaparin 40 mg/0.4 mL Syringe SUBCUT (10:08)
[2023-04-06] MEDS: bacitracin ointment 28 gm TOPICAL ×2 (11:03→17:14)
[2023-04-06] MEDS: mupirocin oint 22 gm 1 APPLIC TOPICAL ×2 (11:03→17:13)
[2023-04-07] VITALS (14 sets, daily range): BP systolic 111–127; BP diastolic 54–75; PULSE 62–93; RESP 15–18; TEMP 36.4–37.2; O2SAT 91–98
[2023-04-07] MEDS: vancomycin 1,500 MG/300 ML PIGGYBACK 200 MG IV ×3 (00:36→17:35)
[2023-04-07] MEDS: piperacillin-tazobactam 3.375 GM in sodium chloride 0.9% (plus) 50 ML IV ×3 (03:00→21:28)
[2023-04-07] MEDS: oxyCODONE IR 30 mg Tablet PO ×4 (04:56→23:37)
[2023-04-07] MEDS: gabapentin 300 mg Capsule 600 MG PO ×3 (09:00→21:33)
[2023-04-07] MEDS: sennosides-docusate Tablet 1 TAB PO (09:00)
[2023-04-07] MEDS: methocarbamol 750 mg Tablet PO ×2 (09:00→17:34)
--- NOTE | 2023-04-07 09:12 | PM.DCS ---
Discharge Providers Date of Admission: 04/02/23 12:54 Date of Discharge: April 07, 2023 Attending Provider at Admission: Bunny Dawson MD Attending Provider at Discharge: Bunny Dawson MD Primary Care Provider: Lesia Moy MD Diagnoses at Discharge Discharge Diagnosis (1) Skin ulcer: Status: Acute Reason for Visit Reason for Visit: sores on butt and legs Hospital Course Hospital Course 27-year-old male who has moved from [place] to visit her mom and sister, present to the hospital for worsening of his ulcers, patient is stating that he gets these kind of rash on his body pretty frequently now since his spinal surgeries and 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 Shelby saw him and recommended medical management, no surgical intervention recommended, patient remained afebrile no leukocytosis, blood cultures negative, I consulted general surgery for skin biopsy, results are pending. He was started on IV steroids considering possibility for cryoglobulinemia due to underlying untreated hepatitis C. However his rash does not have typical vasculitis related features, autoimmune work-up requested, patient needs extensive nursing care, will use calamine lotion along zinc along gluteal region and use topical antibiotics twice a day regimen and covered his wounds with sterile dry dressing. His white count is 9, hemoglobin 9.9, platelet count 572, creatinine is 0.5, urine culture showing Pseudomonas, blood cultures negative to date. Our software quality engineer has concerns related to levamisole related rash but patient denies use of cocaine. Patient is stating that he smokes meth and marijuana which she gets from his sister at home. He is stating that he does not have any place to live in [place] and he is plan to go back to [place] with his father. He was against PICC line placement with fears related to previous endocarditis, he remained afebrile cultures negative and echo did not show any vegetations, he was agreeable for PICC line placement after counseling, PICC line was placed 04/05 right arm. He has been on opioids, experiencing small bowel movements. He would need aggressive bowel regimen. He is being transferred to LTAC/select facility at [place] Patient will need 6 weeks of IV antibiotics for toe osteomyelitis DINESH screen negative Anti-Jo1 negative Sjogren antibodies negative Anti-Al antibodies negative Double-stranded DNA antibodies negative Hepatitis C antibody is positive,However PCR quantitative test showed nondetectable hepatitis C virus in the blood HIV negative Zinc level is low is only 38 normal is 60 to 130 mcg/dL Screen positive for methamphetamine and marijuana Vancomycin trough level 16.6 on 04/05 Blood cultures negative Urine culture showing Pseudomonas, pansensitive(patient gets catheter changed once in a month recent catheter changed was on 03/15) Dr. Shelby/residential treatment counselor recommended:- X-rays of left foot reveal cortical erosions to distal phalanx of left hallux consistent with osteomyelitis.? This correlates with patient's wound clinically.? Patient has excellent blood flow to the lower extremities. There appears to be early formation of distal hallux wound similar to the left with nail trauma.? This could possibly be due to patient's nonambulatory status and using a wheelchair to get around.? He could be bumping his feet into objects.? However, I believe due to the chronicity of the wounds that self-inflicted causation cannot be ruled out. -Overall, left hallux remains stable clinically.? No acute surgical intervention by podiatry at this time.? Recommend local wound care -Betadine, dry sterile dressing to left hallux Physical Exam Narrative: Patient is awake and alert Laying in right lateral position Superficial skin sloughing noted all over his lower extremities extending from waist area multiple patches all over lower extremity with signs of granulation tissue no active purulent drainage Mild serous discharge noted Toe osteomyelitis BELOW IS A FOCUSED LOWER EXTREMITY EXAM GENERAL: A&O x 3 VASCULAR: DP/PT pulses palpable 2/4 with CFT intact, <3seconds to distal digits DERMATOLOGICAL: Skin turgor and temperature is within normal limits.? Left hallux has full-thickness ulceration in the absence of partial nail plate.? No active drainage no surrounding erythema no proximal streaking, no malodor.? Dry heme present, soiled wound.? Right hallux shows similar lesion to the distal medial aspect of the nail plate with dried heme present appears to be chronic picking to distal toes which may have resulted in these ulcerations.? Small excoriation to medial aspect of left foot with mild surrounding erythema no active drainage no purulence no signs of deep space abscess. MUSCULOSKELETAL: Pain with palpation of bilateral hallux.? Contracted lower extremities.? Bilateral musculoskeletal deficits NEUROLOGICAL: Neurological sensation to the affected foot and ankle is Discharge Data Studies Completed and Pending Completed Studies During Hospitalization Category Date Time Status CXRP [XR chest 1V portable [id number]] Routine Exams 04/05/23 11:36 Completed XR toe LT min 2V [id number] Stat Exams 04/01/23 21:28 Completed XR toe RT min 2V [id number] Stat Exams 04/01/23 21:28 Completed CV. echo complete* [id number] Routine Ultrasound 04/05/23 10:02 Completed Pending at discharge Category Date Time Status DINESH Screen w/ Reflex Routine Lab 04/02/23 15:16 Results DINESH [[facility] DINESH Profile] Routine Lab 04/02/23 15:16 Results Porphyrins, Total, Plasma Routine Lab 04/02/23 15:16 Results Pathology: Surgical [PTH] Routine Pth 04/05/23 12:15 Received Radiology Impressions Toe X-Ray 04/01/23 21:28 IMPRESSION: Cortical irregularity at the tip of the 1st digit with bony resorption of a portion of the tuft of the 1st digit consistent with osteomyelitis. Laboratory Results WBC 9.13 10^3/uL (3.29-11.43) 04/05/23 07:04 RBC 4.04 10^6/uL (3.85-5.65) 04/05/23 07:04 Hgb 9.90 g/dL (11.27-16.99) L 04/05/23 07:04 Hct 32.0 % (37-53) L 04/05/23 07:04 MCV 79.2 fl (82-101) L 04/05/23 07:04 MCH 24.5 pg (27-33) L 04/05/23 07:04 MCHC 30.9 g/dL (30-55) 04/05/23 07:04 RDW 15.7 % (12.1-15.1) H 04/05/23 07:04 Plt Count 572 10^3/cmm (157-399) H 04/05/23 07:04 MPV 8.3 fL (7.4-10.4) 04/05/23 07:04 Neut % (Auto) 81.3 % 04/05/23 07:04 Lymph % (Auto) 13.8 % 04/05/23 07:04 Thayer % (Auto) 4.1 % 04/05/23 07:04 Eos % (Auto) 0.0 % 04/05/23 07:04 Baso % (Auto) 0.1 % 04/05/23 07:04 Neut # (Auto) 7.43 10^3/uL (1.8-7.7) 04/05/23 07:04 Lymph # (Auto) 1.3 10^3/uL (0.8-4.8) 04/05/23 07:04 Thayer # (Auto) 0.4 10^3/uL (0.2-0.9) 04/05/23 07:04 Eos # (Auto) 0.0 10^3/uL (0.0-0.8) 04/05/23 07:04 Baso # (Auto) 0.0 10^3/uL (0.0-0.1) 04/05/23 07:04 Nucleated RBC % (auto) 0 % 04/05/23 07:04 Nucleated RBCs # 0.0 /100WBC 04/05/23 07:04 ESR 81 mm/hr (0-10) H 04/01/23 21:55 D-Dimer 1.53 ug/mLFEU (0-0.59) H 04/02/23 10:38 Sodium 139 mmol/L (136-145) 04/05/23 07:04 Potassium 4.4 mmol/L (3.5-5.1) 04/05/23 07:04 Chloride 105 mmol/L (98-107) 04/05/23 07:04 Carbon Dioxide 25 mmol/L (22-29) 04/05/23 07:04 Anion Gap 13.4 (5-19) 04/05/23 07:04 BUN 11 mg/dL (6-20) 04/05/23 07:04 Creatinine 0.5 mg/dL (0.7-1.2) L 04/05/23 07:04 GFR Calculation 196.6 mL/min (90-130) H 04/05/23 07:04 Glucose 112 mg/dL (65-115) 04/05/23 07:04 POC Glucose 174 mg/dL (70-110) H 04/04/23 06:31 Estimat Average Glucose 108 04/02/23 10:38 Hemoglobin A1c 5.4 % (4.0-6.0) 04/02/23 10:38 Calculated Osmolality 288 mOsm/kg (285-295) 04/05/23 07:04 Calcium 8.5 mg/dL (8.5-10.5) 04/05/23 07:04 Phosphorus 3.7 mg/dL (2.5-4.5) 04/03/23 06:35 Magnesium 1.9 mg/dL (1.7-2.3) 04/03/23 06:35 Total Bilirubin 0.4 mg/dL (0.15-1.2) 04/01/23 21:55 AST 20 U/L (0-40) 04/01/23 21:55 ALT 13 U/L (0-41) 04/01/23 21:55 Alkaline Phosphatase 72 U/L (40-130) 04/01/23 21:55 C-Reactive Protein 139.5 mg/L (0.0-4.9) H 04/03/23 06:35 Total Protein 7.5 g/dL (6.6-8.7) 04/01/23 21:55 Albumin 3.4 g/dL (3.5-5.2) L 04/01/23 21:55 Globulin 4.1 g/dL (1.3-4.6) 04/01/23 21:55 Vitamin B12 308 pg/mL (232-1245) 04/02/23 09:03 Procalcitonin 0.09 ng/mL (0-0.5) 04/02/23 09:03 Urine Color Yellow (Yellow) 04/01/23 23:40 Urine Appearance Hazy (CLEAR) A 04/01/23 23:40 Urine pH 6 (5-7) 04/01/23 23:40 Ur Specific [place] 1.005 (1.005-1.030) 04/01/23 23:40 Urine Protein Neg (Negative) 04/01/23 23:40 Urine Glucose (UA) Norm (Normal) 04/01/23 23:40 Urine Ketones Negative (Negative) 04/01/23 23:40 Urine Blood Trace (Negative) H 04/01/23 23:40 Urine Nitrate Positive (Negative) H 04/01/23 23:40 Urine Bilirubin Neg (Negative) 04/01/23 23:40 Urine Urobilinogen Neg mg/dL (Negative) 04/01/23 23:40 Ur Leukocyte Esterase 2+ (Negative) H 04/01/23 23:40 Urine RBC 0-4 /hpf (0-2) H 04/01/23 23:40 Urine WBC 5-10 /hpf (0-5) H 04/01/23 23:40 Ur Squamous Epith Cells Rare /hpf (0-5) 04/01/23 23:40 Amorphous Sediment Not Reportable 04/01/23 23:40 Urine Bacteria None /hpf (NONE) 04/01/23 23:40 Vancomycin Trough 16.6 ug/mL (10-15) H 04/05/23 07:04 Urine Opiates Screen Negative ng/mL (Negative) 04/01/23 23:40 Ur Barbiturates Screen Negative ng/mL (Negative) 04/01/23 23:40 Ur Phencyclidine Scrn Negative ng/mL (Negative) 04/01/23 23:40 Ur Amphetamines Screen Positive ng/mL (Negative) H 04/01/23 23:40 U Benzodiazepines Scrn Positive ng/mL (Negative) H 04/01/23 23:40 Urine Cocaine Screen Negative ng/mL (Negative) 04/01/23 23:40 U Marijuana (THC) Screen Positive ng/mL (Negative) H 04/01/23 23:40 Ethyl Alcohol < 10 mg/dL (0-10) 04/01/23 21:55 Zinc 38 mcg/dL (60-130) L 04/02/23 15:16 DINESH Screen Negative (NEGATIVE) 04/02/23 15:16 CHAS-1 Antibody <1.0 neg AI (<1.0 NEG) 04/02/23 15:16 SS-A/Ro IgG Antibody <1.0 neg AI (<1.0 NEG) 04/02/23 15:16 SS-B/La IgG Antibody <1.0 neg AI (<1.0 NEG) 04/02/23 15:16 Sm (Al) Antibody <1.0 neg AI (<1.0 NEG) 04/02/23 15:16 Anti-nRNP/Sm IgG Ab <1.0 neg AI (<1.0 NEG) 04/02/23 15:16 Scl-70 Scleroderma Ab <1.0 neg AI (<1.0 NEG) 04/02/23 15:16 Anti-ds DNA IgG Ab <1 IU/mL 04/02/23 15:16 Anti-ds DNA IgG Ab <1 IU/mL 04/02/23 15:16 Hepatitis A IgM Ab Non-reactive (Nonreactive) 04/02/23 09:03 Hep Bs Antigen Non-reactive (Nonreactive) 04/02/23 09:03 Hep Bs Antibody 93.2 (11.5-1000) 04/02/23 09:03 Hep B Core Total Ab Reactive (Nonreactive) H 04/02/23 09:03 Hepatitis C Antibody Reactive (Nonreactive) H 04/02/23 09:03 HCV RNA (PCR) IUs/ml <1.18 not detected Log IU/mL (NOT DETECTED) 04/02/23 16:25 HCV RNA (PCR) IU log10 <15 not detected IU/mL (NOT DETECTED) 04/02/23 16:25 HIV 1&2 Ab & HIV 1 Ag Non-reactive (Non-Reactiv) 04/01/23 21:55 HIV 1&2 Antibody Non-reactive (Non-Reactiv) 04/01/23 21:55 Vitals Last Vital Signs Temp 97.5 F L 04/07/23 07:36 Pulse 69 04/07/23 07:47 Resp 16 04/07/23 07:47 BP 113/54 04/07/23 07:36 Pulse Ox 98 04/07/23 07:47 O2 Del Method Room Air 04/07/23 07:47 Discharge Plan Discharge Patient Disposition: Xfer LTC Condition: Stable Prescriptions: New bacitracin 500 unit/gram Ointment 1 applic topical BID Qty: 14 1RF calamine-zinc oxide 8-8 % Lotion 1 applic topical BID Qty: 177 0RF Stool Softener-Laxative 8.6-50 mg Tablet 1 tab PO DAILY Qty: 30 0RF Continued oxycodone 10 mg tablet 10 mg PO Q8H PRN (Reason: pain) 30 Days Qty: 90 0RF methocarbamol 750 mg tablet 750 mg PO BID Qty: 60 1RF gabapentin 600 mg tablet 600 mg PO TID Qty: 90 1RF diazepam 5 mg tablet 5 mg PO .HS Qty: 30 2RF mupirocin 2 % ointment 1 applic topical BID Qty: 22 0RF carisoprodol 350 mg tablet 350 mg PO BID trazodone 50 mg tablet 50 mg PO BEDTIME oxycodone 30 mg tablet 15 mg PO Q6H PRN (Reason: Pain) duloxetine 30 mg capsule,delayed release(DR/EC) 30 mg PO DAILY Narcan 4 mg/actuation Royal,Non-Aerosol 4 mg INTRANASAL Q3M PRN (Reason: Opioid Overdose) Rx Instructions: spray 1 dose into ONE nostril; alternate nostrils w each dose until help arrives Discharge Orders: Discharge Order (Routine); Ordered 04/07/23 Ordered By: Bunny Dawson Referrals: Lesia Moy MD [Primary Care Provider] - Discharge Diet: Cardiac Discharge Activity: Bedrest Discharge Attestations Time Spent in Discharge Care*: greater than 30 min Quality Metrics Clinical Quality Measures [ No reported AMI, CVA or VTE this stay] Coding Level of Care Code Acute Code for Chg Fwd Diagnoses Skin ulcer L98.499
[2023-04-07] MEDS: bacitracin ointment 28 gm TOPICAL (13:34)
[2023-04-07] MEDS: mupirocin oint 22 gm 1 APPLIC TOPICAL (13:34)
[2023-04-07] MEDS: enoxaparin 40 mg/0.4 mL Syringe SUBCUT (13:35)
[2023-04-07] MEDS: methylPREDNISolone sod succ 40 MG in water for injection-sterile 1 ML 12 MG IVP ×2 (13:35→23:49)
--- NOTE | 2023-04-07 14:41 | PM.PN ---
Subjective Subjective: Patient is waiting LTAC/select facility bed availability Punch biopsy showed skin tag autoimmune disease work-up negative Vitals/I&O/Wt Last Vital Signs Temp 98.6 F 04/07/23 11:32 Pulse 72 04/07/23 11:28 Resp 15 04/07/23 11:28 BP 121/73 04/07/23 11:28 Pulse Ox 96 04/07/23 11:28 O2 Del Method Room Air 04/07/23 11:28 04/06/23 04/07/23 04/07/23 22:59 06:59 14:59 Intake Total 1071 / 1372 350 / 1722 351 / 351 Output Total 2900 / 2900 1000 / 3900 1125 / 1125 Balance -1829 / -1528 -650 / -2178 -774 / -774 Physical Exam Narrative: Awake and alert GCS 15 Currently on room air DERMATOLOGICAL: Skin turgor and temperature is within normal limits.? Left hallux has full-thickness ulceration in the absence of partial nail plate.? No active drainage no surrounding erythema no proximal streaking, no malodor.? Dry heme present, soiled wound.? Right hallux shows similar lesion to the distal medial aspect of the nail plate with dried heme present appears to be chronic picking to distal toes which may have resulted in these ulcerations.? Small excoriation to medial aspect of left foot with mild surrounding erythema no active drainage no purulence no signs of deep space abscess. Data 04/05/23 07:04 04/05/23 07:04 Micro: Microbiology 04/01/23 22:13 Blood Culture - Final Blood NO GROWTH AFTER 5 DAYS 04/01/23 21:55 Blood Culture - Final Blood NO GROWTH AFTER 5 DAYS A&P Assessment and plan (1) Polysubstance abuse: (2) Skin ulcer: (3) Osteomyelitis: (4) Paralysis of both lower limbs: (5) Hx of decompressive lumbar laminectomy: Plan Awaiting placement to LTAC Continue antibiotics for osteomyelitis Continue steroids, autoimmune work-up negative Attestations Medical Necessity Statement*: Continue medical management Diagnoses Polysubstance abuse F19.10 Skin ulcer L98.499 Osteomyelitis M86.9 Paralysis of both lower limbs G82.20 Hx of decompressive lumbar laminectomy Z98.890
[2023-04-07 15:55] LABS: Vancomycin Trough 18.2 ug/mL (10-15)
[2023-04-08] VITALS (10 sets, daily range): BP systolic 120–135; BP diastolic 70–81; PULSE 73–102; RESP 15–18; TEMP 36.4–37.1; O2SAT 95–99
[2023-04-08] MEDS: vancomycin 1,500 MG/300 ML PIGGYBACK 200 MG IV ×3 (00:56→17:43)
[2023-04-08] MEDS: piperacillin-tazobactam 3.375 GM in sodium chloride 0.9% (plus) 50 ML IV ×3 (04:12→20:59)
[2023-04-08] MEDS: oxyCODONE IR 30 mg Tablet PO ×3 (05:40→18:29)
[2023-04-08] MEDS: bacitracin ointment 28 gm TOPICAL ×2 (06:46→17:44)
[2023-04-08] MEDS: mupirocin oint 22 gm 1 APPLIC TOPICAL ×2 (06:46→17:43)
--- NOTE | 2023-04-08 09:40 | PM.PN ---
Subjective Subjective: No overnight events Continue IV antibiotics Vitals/I&O/Wt Last Vital Signs Temp 100.6 F H 04/10/23 16:00 Pulse 98 04/10/23 16:00 Resp 16 04/10/23 16:00 BP 108/69 04/10/23 16:00 Pulse Ox 97 04/10/23 16:00 O2 Del Method Room Air 04/10/23 16:00 04/10/23 04/10/23 04/10/23 06:59 14:59 22:59 Intake Total 350 / 2970 1310 / 1310 530 / 1840 Output Total 1500 / 3450 1000 / 1000 500 / 1500 Balance -1150 / -480 310 / 310 30 / 340 Physical Exam Narrative: Skin ulcers improving GC 50 Nonfocal exam Currently normal Chronic indwelling catheter Pleasant cooperative Data 04/05/23 07:04 04/05/23 07:04 A&P Assessment and plan (1) Polysubstance abuse: (2) Skin ulcer: (3) Osteomyelitis: Plan Patient is being screened by select facility Continue IV antibiotics for osteomyelitis PICC line has been placed Received in the 60s IV antibiotics We will discontinue steroids if autoimmune work-up is negative Skin biopsy is pending Full code Attestations Medical Necessity Statement*: Continue antibiotic Diagnoses Polysubstance abuse F19.10 Skin ulcer L98.499 Osteomyelitis M86.9
[2023-04-08] MEDS: methocarbamol 750 mg Tablet PO ×2 (09:50→17:44)
[2023-04-08] MEDS: gabapentin 300 mg Capsule 600 MG PO ×3 (09:50→20:58)
[2023-04-08] MEDS: sennosides-docusate Tablet 1 TAB PO (09:50)
[2023-04-08] MEDS: enoxaparin 40 mg/0.4 mL Syringe SUBCUT (10:32)
[2023-04-09] VITALS (12 sets, daily range): BP systolic 117–133; BP diastolic 65–87; PULSE 89–107; RESP 16–18; TEMP 36.7–37.1; O2SAT 16–98
[2023-04-09] MEDS: oxyCODONE IR 30 mg Tablet PO ×4 (00:18→18:28)
[2023-04-09] MEDS: vancomycin 1,500 MG/300 ML PIGGYBACK 200 MG IV ×3 (00:19→15:55)
[2023-04-09] MEDS: piperacillin-tazobactam 3.375 GM in sodium chloride 0.9% (plus) 50 ML IV ×3 (04:24→20:56)
[2023-04-09] MEDS: bacitracin ointment 28 gm TOPICAL ×2 (06:32→19:52)
[2023-04-09 08:12] LABS: Vancomycin Trough 13.2 ug/mL (10-15)
[2023-04-09] MEDS: methocarbamol 750 mg Tablet PO ×2 (08:48→18:38)
[2023-04-09] MEDS: gabapentin 300 mg Capsule 600 MG PO ×3 (08:48→20:56)
[2023-04-09] MEDS: sennosides-docusate Tablet 1 TAB PO (08:48)
--- NOTE | 2023-04-09 11:05 | PM.PN ---
Subjective Subjective: No overnight events Pain well managed on current opioid regimen Vitals/I&O/Wt Last Vital Signs Temp 98.5 F 04/09/23 07:54 Pulse 90 04/09/23 07:54 Resp 17 04/09/23 07:54 BP 120/71 04/09/23 07:54 Pulse Ox 96 04/09/23 07:54 O2 Del Method Room Air 04/09/23 07:48 04/08/23 04/09/23 04/09/23 22:59 06:59 14:59 Intake Total 830 / 1780 350 / 2130 240 / 240 Output Total 1400 / 1400 1600 / 3000 Balance -570 / 380 -1250 / -870 240 / 240 Physical Exam Narrative: Chronic indwelling catheter Patient laying in right lateral position Right arm PICC line Wound showing signs of healing No active worsening no signs of worsening of ulcers Awake and alert GCS 15 no new focal deficit Currently on room air Data 04/05/23 07:04 04/05/23 07:04 A&P Assessment and plan (1) Polysubstance abuse: (2) Skin ulcer: (3) Osteomyelitis: Plan Patient awaiting LTAC/select facility placement for osteomyelitis 6 weeks IV antibiotics Skin biopsy showed skin tag IV steroids discontinued Patient will need hepatitis C treatment Patient is planned to move to [place] once he is done with his 6 weeks of IV antibiotics Patient has not given me consent to talk with his sister or mother Full code Regular diet Oxycodone 30 mg is a high dose which I am only doing 6 hours as needed Continue bowel regimen Zinc oxide topical antibiotics and daily dressing change twice a day Attestations Medical Necessity Statement*: Awaiting placement Diagnoses Polysubstance abuse F19.10 Skin ulcer L98.499 Osteomyelitis M86.9
[2023-04-09] MEDS: enoxaparin 40 mg/0.4 mL Syringe SUBCUT (11:27)
--- NOTE | 2023-04-09 17:47 | PC.NURSE ---
Scant amount of bleeding from naval. 2x2 gauze with paper tape applied
[2023-04-09] MEDS: mupirocin oint 22 gm 1 APPLIC TOPICAL (19:51)
[2023-04-10] VITALS (12 sets, daily range): BP systolic 108–124; BP diastolic 66–71; PULSE 69–109; RESP 16–18; TEMP 36.8–39.5; O2SAT 95–97
[2023-04-10] MEDS: oxyCODONE IR 30 mg Tablet PO ×3 (00:23→13:09)
[2023-04-10] MEDS: vancomycin 1,500 MG/300 ML PIGGYBACK 200 MG IV ×3 (00:58→17:08)
[2023-04-10] MEDS: acetaminophen 500 mg Tablet PO ×3 (01:29→17:14)
[2023-04-10] MEDS: piperacillin-tazobactam 3.375 GM in sodium chloride 0.9% (plus) 50 ML IV ×2 (03:14→12:03)
[2023-04-10] MEDS: polyethylene glycol 3350 Pkt 17 gm PO (09:45)
[2023-04-10] MEDS: gabapentin 300 mg Capsule 600 MG PO ×2 (09:46→14:29)
[2023-04-10] MEDS: methocarbamol 750 mg Tablet PO ×2 (09:46→17:44)
[2023-04-10] MEDS: sennosides-docusate Tablet 1 TAB PO (09:46)
[2023-04-10] MEDS: bacitracin ointment 28 gm TOPICAL (10:36)
[2023-04-10] MEDS: mupirocin oint 22 gm 1 APPLIC TOPICAL (10:36)
[2023-04-10] MEDS: enoxaparin 40 mg/0.4 mL Syringe SUBCUT (10:37)
--- NOTE | 2023-04-10 10:41 | PM.PN ---
Subjective Subjective: Awaiting placement No events Skin biopsy did not show malignant lesions Doing well on current opioids Vitals/I&O/Wt Last Vital Signs Temp 98.2 F 04/10/23 07:59 Pulse 69 04/10/23 07:59 Resp 17 04/10/23 07:59 BP 109/71 04/10/23 07:59 Pulse Ox 97 04/10/23 07:59 O2 Del Method Room Air 04/10/23 08:00 04/09/23 04/10/23 04/10/23 22:59 06:59 14:59 Intake Total 1790 / 2620 350 / 2970 530 / 530 Output Total 1950 / 1950 1500 / 3450 Balance -160 / 670 -1150 / -480 530 / 530 Physical Exam Narrative: Multiple wounds showing signs of healing No acute worsening No active pain Currently on room air Nonfocal neuro exam Chronic indwelling catheter Data 04/05/23 07:04 04/05/23 07:04 A&P Assessment and plan (1) Polysubstance abuse: (2) Skin ulcer: (3) Osteomyelitis: Plan No signs of vasculitis Autoimmune work-up negative Discontinued steroids Patient is awaiting placement For osteomyelitis will need 6 weeks of IV antibiotics Awaiting LTAC/select facility placement Attestations Medical Necessity Statement*: Continue medical management Diagnoses Polysubstance abuse F19.10 Skin ulcer L98.499 Osteomyelitis M86.9
--- NOTE | 2023-04-10 10:45 | PM.DCS ---
Discharge Providers Date of Admission: 04/02/23 12:54 Date of Discharge: April 10, 2023 Attending Provider at Admission: Bunny Dawson MD Attending Provider at Discharge: Bunny Dawson MD Primary Care Provider: Lesia Moy MD Diagnoses at Discharge Discharge Diagnosis (1) Polysubstance abuse: Status: Acute (2) Skin ulcer: Status: Acute (3) Osteomyelitis: Status: Acute Reason for Visit Reason for Visit: sores on butt and legs Hospital Course Hospital Course 27-year-old male who has moved from [place] to visit her mom and sister, present to the hospital for worsening of his ulcers, patient is stating that he gets these kind of rash on his body pretty frequently now since his spinal surgeries and 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 Shelby saw him and recommended medical management, no surgical intervention recommended, patient remained afebrile no leukocytosis, blood cultures negative, I consulted general surgery for skin biopsy, results are pending. He was started on IV steroids considering possibility for cryoglobulinemia due to underlying untreated hepatitis C. However his rash does not have typical vasculitis related features, autoimmune work-up requested, patient needs extensive nursing care, will use calamine lotion along zinc along gluteal region and use topical antibiotics twice a day regimen and covered his wounds with sterile dry dressing. His white count is 9, hemoglobin 9.9, platelet count 572, creatinine is 0.5, urine culture showing Pseudomonas, blood cultures negative to date. Our rn documentation has concerns related to levamisole related rash but patient denies use of cocaine. Patient is stating that he smokes meth and marijuana which she gets from his sister at home. He is stating that he does not have any place to live in [place] and he is plan to go back to [place] with his father. He was against PICC line placement with fears related to previous endocarditis, he remained afebrile cultures negative and echo did not show any vegetations, he was agreeable for PICC line placement after counseling, PICC line was placed 04/05 right arm. He has been on opioids, experiencing small bowel movements. He would need aggressive bowel regimen. He is being transferred to LTAC/select facility at [place] Patient will need 6 weeks of IV antibiotics for toe osteomyelitis DINESH screen negative Anti-Jo1 negative Sjogren antibodies negative Anti-Al antibodies negative Double-stranded DNA antibodies negative Hepatitis C antibody is positive,However PCR quantitative test showed nondetectable hepatitis C virus in the blood HIV negative Zinc level is low is only 38 normal is 60 to 130 mcg/dL Screen positive for methamphetamine and marijuana Vancomycin trough level 16.6 on 04/05 Blood cultures negative Urine culture showing Pseudomonas, pansensitive(patient gets catheter changed once in a month recent catheter changed was on 03/15) Skin biopsy showed no malignant lesion, it is showing skin tag benign lesion, biopsy was taken from his lower extremity Dr. Shelby/departmental buyer recommended:- X-rays of left foot reveal cortical erosions to distal phalanx of left hallux consistent with osteomyelitis.? This correlates with patient's wound clinically.? Patient has excellent blood flow to the lower extremities. There appears to be early formation of distal hallux wound similar to the left with nail trauma.? This could possibly be due to patient's nonambulatory status and using a wheelchair to get around.? He could be bumping his feet into objects.? However, I believe due to the chronicity of the wounds that self-inflicted causation cannot be ruled out. -Overall, left hallux remains stable clinically.? No acute surgical intervention by podiatry at this time.? Recommend local wound care -Betadine, dry sterile dressing to left hallux Pt going to LTAC/[facility] Physical Exam Narrative: Patient is awake a nd alert Laying in right lateral pos ition Superficial skin sloughing not ed all over his lo wer extremities ex tending from waist area multiple pat ches all over lowe r extremity with s igns of granulatio n tissue no active purulent drainage Mild serous disch arge noted Toe ost eomyelitis BELOW IS A FOCUSED LOWER EXTREMITY EXAM G ENERAL: A&O x 3 V ASCULAR: DP/PT pul ses palpable 2/4 w ith CFT intact, <3 seconds to distal digits DERMATOLOG ICAL: Skin turgor and temperature is within normal schmidt its.? Left hallux has full-thickness ulceration in the absence of partia l nail plate.? No active drainage no surrounding eryth vivienne no proximal st reaking, no malodo r.? Dry heme prese nt, soiled wound.? Right hallux show s similar lesion t o the distal media l aspect of the na il plate with drie d heme present bonita ears to be chronic picking to distal toes which may adorno ve resulted in the se ulcerations.? S mall excoriation t o medial aspect of left foot with mi ld surrounding seferino thema no active dr sridhar no purulenc e no signs of deep space abscess. M USCULOSKELETAL: Pa in with palpation of bilateral hallu x.? Contracted low er extremities.? B ilateral musculosk eletal deficits N EUROLOGICAL: Neuro logical sensation to the affected fo ot and ankle is Discharge Data Studies Completed and Pending Completed Studies During Hospitalization Category Date Time Status CXRP [XR chest 1V portable [id number]] Routine Exams 04/05/23 11:36 Completed XR toe LT min 2V [id number] Stat Exams 04/01/23 21:28 Completed XR toe RT min 2V [id number] Stat Exams 04/01/23 21:28 Completed Pathology: Surgical [PTH] Routine Pth 04/05/23 12:15 Completed CV. echo complete* [id number] Routine Ultrasound 04/05/23 10:02 Completed Pending at discharge Category Date Time Status DINESH Screen w/ Reflex Routine Lab 04/02/23 15:16 Results DINESH [C DINESH Profile] Routine Lab 04/02/23 15:16 Results Porphyrins, Total, Plasma Routine Lab 04/02/23 15:16 Results Radiology Impressions Toe X-Ray 04/01/23 21:28 IMPRESSION: Cortical irregularity at the tip of the 1st digit with bony resorption of a portion of the tuft of the 1st digit consistent with osteomyelitis. Laboratory Results WBC 9.13 10^3/uL (3.29-11.43) 04/05/23 07:04 RBC 4.04 10^6/uL (3.85-5.65) 04/05/23 07:04 Hgb 9.90 g/dL (11.27-16.99) L 04/05/23 07:04 Hct 32.0 % (37-53) L 04/05/23 07:04 MCV 79.2 fl (82-101) L 04/05/23 07:04 MCH 24.5 pg (27-33) L 04/05/23 07:04 MCHC 30.9 g/dL (30-55) 04/05/23 07:04 RDW 15.7 % (12.1-15.1) H 04/05/23 07:04 Plt Count 572 10^3/cmm (157-399) H 04/05/23 07:04 MPV 8.3 fL (7.4-10.4) 04/05/23 07:04 Neut % (Auto) 81.3 % 04/05/23 07:04 Lymph % (Auto) 13.8 % 04/05/23 07:04 Emery % (Auto) 4.1 % 04/05/23 07:04 Eos % (Auto) 0.0 % 04/05/23 07:04 Baso % (Auto) 0.1 % 04/05/23 07:04 Neut # (Auto) 7.43 10^3/uL (1.8-7.7) 04/05/23 07:04 Lymph # (Auto) 1.3 10^3/uL (0.8-4.8) 04/05/23 07:04 Emery # (Auto) 0.4 10^3/uL (0.2-0.9) 04/05/23 07:04 Eos # (Auto) 0.0 10^3/uL (0.0-0.8) 04/05/23 07:04 Baso # (Auto) 0.0 10^3/uL (0.0-0.1) 04/05/23 07:04 Nucleated RBC % (auto) 0 % 04/05/23 07:04 Nucleated RBCs # 0.0 /100WBC 04/05/23 07:04 ESR 81 mm/hr (0-10) H 04/01/23 21:55 D-Dimer 1.53 ug/mLFEU (0-0.59) H 04/02/23 10:38 Sodium 139 mmol/L (136-145) 04/05/23 07:04 Potassium 4.4 mmol/L (3.5-5.1) 04/05/23 07:04 Chloride 105 mmol/L (98-107) 04/05/23 07:04 Carbon Dioxide 25 mmol/L (22-29) 04/05/23 07:04 Anion Gap 13.4 (5-19) 04/05/23 07:04 BUN 11 mg/dL (6-20) 04/05/23 07:04 Creatinine 0.5 mg/dL (0.7-1.2) L 04/05/23 07:04 GFR Calculation 196.6 mL/min (90-130) H 04/05/23 07:04 Glucose 112 mg/dL (65-115) 04/05/23 07:04 POC Glucose 174 mg/dL (70-110) H 04/04/23 06:31 Estimat Average Glucose 108 04/02/23 10:38 Hemoglobin A1c 5.4 % (4.0-6.0) 04/02/23 10:38 Calculated Osmolality 288 mOsm/kg (285-295) 04/05/23 07:04 Calcium 8.5 mg/dL (8.5-10.5) 04/05/23 07:04 Phosphorus 3.7 mg/dL (2.5-4.5) 04/03/23 06:35 Magnesium 1.9 mg/dL (1.7-2.3) 04/03/23 06:35 Total Bilirubin 0.4 mg/dL (0.15-1.2) 04/01/23 21:55 AST 20 U/L (0-40) 04/01/23 21:55 ALT 13 U/L (0-41) 04/01/23 21:55 Alkaline Phosphatase 72 U/L (40-130) 04/01/23 21:55 C-Reactive Protein 139.5 mg/L (0.0-4.9) H 04/03/23 06:35 Total Protein 7.5 g/dL (6.6-8.7) 04/01/23 21:55 Albumin 3.4 g/dL (3.5-5.2) L 04/01/23 21:55 Globulin 4.1 g/dL (1.3-4.6) 04/01/23 21:55 Vitamin B12 308 pg/mL (232-1245) 04/02/23 09:03 Procalcitonin 0.09 ng/mL (0-0.5) 04/02/23 09:03 Urine Color Yellow (Yellow) 04/01/23 23:40 Urine Appearance Hazy (CLEAR) A 04/01/23 23:40 Urine pH 6 (5-7) 04/01/23 23:40 Ur Specific [place] 1.005 (1.005-1.030) 04/01/23 23:40 Urine Protein Neg (Negative) 04/01/23 23:40 Urine Glucose (UA) Norm (Normal) 04/01/23 23:40 Urine Ketones Negative (Negative) 04/01/23 23:40 Urine Blood Trace (Negative) H 04/01/23 23:40 Urine Nitrate Positive (Negative) H 04/01/23 23:40 Urine Bilirubin Neg (Negative) 04/01/23 23:40 Urine Urobilinogen Neg mg/dL (Negative) 04/01/23 23:40 Ur Leukocyte Esterase 2+ (Negative) H 04/01/23 23:40 Urine RBC 0-4 /hpf (0-2) H 04/01/23 23:40 Urine WBC 5-10 /hpf (0-5) H 04/01/23 23:40 Ur Squamous Epith Cells Rare /hpf (0-5) 04/01/23 23:40 Amorphous Sediment Not Reportable 04/01/23 23:40 Urine Bacteria None /hpf (NONE) 04/01/23 23:40 Vancomycin Trough 13.2 ug/mL (10-15) 04/09/23 07:37 Urine Opiates Screen Negative ng/mL (Negative) 04/01/23 23:40 Ur Barbiturates Screen Negative ng/mL (Negative) 04/01/23 23:40 Ur Phencyclidine Scrn Negative ng/mL (Negative) 04/01/23 23:40 Ur Amphetamines Screen Positive ng/mL (Negative) H 04/01/23 23:40 U Benzodiazepines Scrn Positive ng/mL (Negative) H 04/01/23 23:40 Urine Cocaine Screen Negative ng/mL (Negative) 04/01/23 23:40 U Marijuana (THC) Screen Positive ng/mL (Negative) H 04/01/23 23:40 Ethyl Alcohol < 10 mg/dL (0-10) 04/01/23 21:55 Zinc 38 mcg/dL (60-130) L 04/02/23 15:16 DINESH Screen Negative (NEGATIVE) 04/02/23 15:16 CHAS-1 Antibody <1.0 neg AI (<1.0 NEG) 04/02/23 15:16 SS-A/Ro IgG Antibody <1.0 neg AI (<1.0 NEG) 04/02/23 15:16 SS-B/La IgG Antibody <1.0 neg AI (<1.0 NEG) 04/02/23 15:16 Sm (Al) Antibody <1.0 neg AI (<1.0 NEG) 04/02/23 15:16 Anti-nRNP/Sm IgG Ab <1.0 neg AI (<1.0 NEG) 04/02/23 15:16 Scl-70 Scleroderma Ab <1.0 neg AI (<1.0 NEG) 04/02/23 15:16 Anti-ds DNA IgG Ab <1 IU/mL 04/02/23 15:16 Anti-ds DNA IgG Ab <1 IU/mL 04/02/23 15:16 Hepatitis A IgM Ab Non-reactive (Nonreactive) 04/02/23 09:03 Hep Bs Antigen Non-reactive (Nonreactive) 04/02/23 09:03 Hep Bs Antibody 93.2 (11.5-1000) 04/02/23 09:03 Hep B Core Total Ab Reactive (Nonreactive) H 04/02/23 09:03 Hepatitis C Antibody Reactive (Nonreactive) H 04/02/23 09:03 HCV RNA (PCR) IUs/ml <1.18 not detected Log IU/mL (NOT DETECTED) 04/02/23 16:25 HCV RNA (PCR) IU log10 <15 not detected IU/mL (NOT DETECTED) 04/02/23 16:25 HIV 1&2 Ab & HIV 1 Ag Non-reactive (Non-Reactiv) 04/01/23 21:55 HIV 1&2 Antibody Non-reactive (Non-Reactiv) 04/01/23 21:55 Vitals Last Vital Signs Temp 98.2 F 04/10/23 07:59 Pulse 69 04/10/23 07:59 Resp 17 04/10/23 07:59 BP 109/71 04/10/23 07:59 Pulse Ox 97 04/10/23 07:59 O2 Del Method Room Air 04/10/23 08:00 Discharge Plan Discharge Patient Disposition: Xfer LTC Condition: Stable Prescriptions: New bacitracin 500 unit/gram Ointment 1 applic topical BID Qty: 14 1RF calamine-zinc oxide 8-8 % Lotion 1 applic topical BID Qty: 177 0RF Stool Softener-Laxative 8.6-50 mg Tablet 1 tab PO DAILY Qty: 30 0RF Continued oxycodone 10 mg tablet 10 mg PO Q8H PRN (Reason: pain) 30 Days Qty: 90 0RF methocarbamol 750 mg tablet 750 mg PO BID Qty: 60 1RF gabapentin 600 mg tablet 600 mg PO TID Qty: 90 1RF diazepam 5 mg tablet 5 mg PO .HS Qty: 30 2RF mupirocin 2 % ointment 1 applic topical BID Qty: 22 0RF carisoprodol 350 mg tablet 350 mg PO BID trazodone 50 mg tablet 50 mg PO BEDTIME oxycodone 30 mg tablet 15 mg PO Q6H PRN (Reason: Pain) duloxetine 30 mg capsule,delayed release(DR/EC) 30 mg PO DAILY Narcan 4 mg/actuation [place],Non-Aerosol 4 mg INTRANASAL Q3M PRN (Reason: Opioid Overdose) Rx Instructions: spray 1 dose into ONE nostril; alternate nostrils w each dose until help arrives Discharge Orders: Discharge Order (Routine); Ordered 04/10/23 Ordered By: Bunny Dawson Referrals: Lesia Moy MD [Primary Care Provider] - Discharge Diet: Cardiac Discharge Activity: Bedrest Patient Instructions: Laxative, Stool Softeners (By mouth) (Doculax, Colace, Colace Clear, DSS), Bacitracin/Neomycin/Polymyxin B (On the skin) (Neosporin, Triple..., Pramoxine/Zinc Acetate (On the skin) (Calaclear, Caladryl Clear,..., Osteomyelitis (DC), Chronic Wound Care (DC) Discharge Attestations Time Spent in Discharge Care*: greater than 30 min Quality Metrics Clinical Quality Measures [ No reported AMI, CVA or VTE this stay] Coding Level of Care Code Acute Code for [facility] Fwd Diagnoses Polysubstance abuse F19.10 Skin ulcer L98.499 Osteomyelitis M86.9
[2023-04-10] MEDS: zinc gluconate 50 mg Tablet PO (11:22)
== END 2023-04-10 18:00 | DRG 540 ==
LOC: ER 04-02 06:59 → MEDSURG 04-02 12:18
PROVIDERS: Emergency Medicine; Physician Assistant; Admitting Provider Internal Medicine; Emergency Provider Family Medicine; PCP Family Medicine; Visit Provider Internal Medicine
DX: M86.8X7 Other osteomyelitis, ankle and foot (principal); G82.20 Paraplegia, unspecified; N39.0 Urinary tract infection, site not specified; L97.929 Non-pressure chronic ulcer of unspecified part of left lower leg with unspecified severity; Z96.0 Presence of urogenital implants; Z74.01 Bed confinement status; B19.20 Unspecified viral hepatitis C without hepatic coma; B96.5 Pseudomonas (aeruginosa) (mallei) (pseudomallei) as the cause of diseases classified elsewhere; F15.90 Other stimulant use, unspecified, uncomplicated; F12.90 Cannabis use, unspecified, uncomplicated; Z79.891 Long term (current) use of opiate analgesic; F17.290 Nicotine dependence, other tobacco product, uncomplicated; Z75.1 Person awaiting admission to adequate facility elsewhere; L98.419 Non-pressure chronic ulcer of buttock with unspecified severity; L97.519 Non-pressure chronic ulcer of other part of right foot with unspecified severity
CPT/HCPCS: 36415; 36416; 36573; 36592; 71045; 73660; 80048; 80053; 80202; 80306; 80307; 81001; 81003; 82542; 82607; 82962; 83036; 83735; 84100; 84145; 84630; 85025; 85378; 85651; 86038; 86140; 86225; 86235; 86705; 86706; 86709; 86803; 87040; 87077; 87086; 87186; 87340; 87522; 87806; 88304; 93306; 96365; 96366; 96372; 96375; 96376; 99285; J1200; J1650; J2270; J2543; J2765; J2920; J3010; J3370; J7030

== ENCOUNTER 2023-05-22 15:57 | Emergency (ER) | payer BC, MEDICAID, SELFPAY ==
[2023-05-22 16:18] VITALS: BP 130/85; PULSE 111; RESP 18; TEMP 36.8; O2SAT 100; BMI 33.0
--- NOTE | 2023-05-22 16:39 | XRR_ITS ---
PROCEDURE INFORMATION: Exam: XR Abdomen Exam date and time: 05/22/2023 4:59 PM Age: 27 years old Clinical indication: Other: Constipation; TECHNIQUE: Imaging protocol: Radiologic exam of the abdomen. Views: Frontal supine view of the abdomen. 1 View. COMPARISON: CR XR KUB [id number] 03/19/2023 10:10 PM FINDINGS: Gastrointestinal tract: Large volume of retained stool throughout the colon, suggesting constipation. Nonobstructive intestinal gas pattern demonstrated. Bones/joints: Degenerative spine changes are noted. Soft tissues: The soft tissues are unremarkable as demonstrated. XR/XR KUB [id number] IMPRESSION: 1. Large volume of retained stool throughout the colon, suggesting constipation. 2. The volume of retained stool appears slightly larger compared to previous XR abdomen of 03/19/2023.
--- NOTE | 2023-05-22 16:46 | ED_ITS ---
HPI - Abdominal Pain General: Chief Complaint: Abdominal Pain Stated Complaint: abdominal pain, nausia Time Seen by Provider: 05/22/23 16:10 Source: patient Limitations: no limitations History of Present Illness: 27-year-old male has a history of paralysis of lower limbs along with chronic back pain he states that he is on oxycodone and has not had a bowel movement in 2 weeks states he has been having increasing abdominal pain due to not having a bowel movement he states it is diffuse in nature rates it a 5 out of 10 has had no vomiting denies any worsening proving factors. Associated Symptoms: Reports constipation; Denies chills, diarrhea, dysuria, fever(s), nausea and vomiting Review of Systems Const: Denies: fever(s), chills, body aches or change in appetite ENMT: Denies: throat pain or dental pain Card: Denies: chest pain Resp: Denies: dyspnea GI: Reports: abdominal pain and constipation; Denies: nausea, vomiting or diarrhea : Denies: dysuria Musc: Denies: neck pain or back pain Skin/Breast: Denies: rash Neuro: Denies: headache(s) PFSH ED PFSH: Medical History Liver fibrosis Paralysis of both lower limbs Urinary retention Surgical History Hx of decompressive lumbar laminectomy Family History Grandfather Cancer Bladder Sister Psychiatric illness Denies family history of Diabetes CAD (coronary artery disease) Clotting disorder Dementia Chronic kidney disease (CKD) Hypertension Stroke Social History Smoking and tobacco/nicotine status: current every day tobacco/nicotine user e- cigarettes E-Cigarette Details: vaporizer device and with nicotine E-cig/vape details: using about 6-7 months, smoked cigarettes PPD x 12-13 yrs, started vaping 6 Second hand smoke exposure: No Alcohol intake: never Substance/Drug Use: former Date of last use: year ago Caregiver/support person: Yes Lives independently: Yes Marital status: Single Highest education level completed: High School Graduate service: No Current occupational status: unemployed Current gender identity: Male Special michael needs: No Agree to transfusion: Yes Physical Exam Const: COMMON NORMALS: no acute distress, patient oriented x3 and healthy appearing HENMT: COMMON NORMALS: normocephalic and atraumatic HEAD & SCALP: normocephalic and atraumatic Neck/C-Spine: COMMON NORMALS: full ROM and supple Chest: COMMONS NORMALS: normal inspection of the chest Resp: COMMON NORMALS: normal respiratory effort Cardio: COMMON NORMALS: regular rate, regular rhythm and No murmurs present (Cardio) RATE: regular rate RHYTHM: regular rhythm GI: COMMON NORMALS: Normal to inspection, nondistended, normoactive bowel so unds present, Soft to palpation, non-tender and no masses PALPATION: Yes Soft to palpation Extremity: COMMON NORMALS: normal to inspection Neuro: COMMON NORMALS: patient oriented x3 Psych: COMMON NORMALS: mental status grossly normal, Normal thought process present and cooperative THOUGHT PROCESS: Normal thought process present Skin: COMMON NORMALS: no rashes or lesions noted and no wounds GENERAL SKIN EXAM: no rashes or lesions noted Course Vital Signs: Vital signs: Vital Signs Temperature 98.2 F 05/22/23 16:18 Pulse Rate 111 H 05/22/23 16:18 Respiratory Rate 18 05/22/23 16:18 Blood Pressure 130/85 05/22/23 16:18 Pulse Oximetry 100 05/22/23 16:18 MDM - Abdominal Pain Medical Decision Making Patient presents with abdominal pain from constipation he is severely constipated here his abdominal exam is benign no signs of acute surgical abdomen we will give him lactulose here and prescribed MiraLAX he is to follow-up with PCP and return if worsening. Medical Records I reviewed the patient's medical records. Lab Data I reviewed the patient's lab results. Labs/Radiology: Radiology Impressions KUB X-Ray 05/22/23 16:39 IMPRESSION: 1. Large volume of retained stool throughout the colon, suggesting constipation. 2. The volume of retained stool appears slightly larger compared to previous XR abdomen of 03/19/2023. All radiology interpretation(s) finalized by discharge Discharge Plan Discharge Patient Disposition: Home Clinical Impression: Constipation Condition: Stable Prescriptions: New Miralax 17 gram powder in packet 17 g PO BID Qty: 30 0RF No Action oxycodone 10 mg tablet 10 mg PO Q8H PRN (Reason: pain) 30 Days Qty: 90 0RF diazepam 5 mg tablet 5 mg PO .HS Qty: 30 0RF gabapentin 600 mg tablet 600 mg PO TID Qty: 90 1RF methocarbamol 750 mg tablet 750 mg PO BID Qty: 60 1RF mupirocin 2 % ointment 1 applic topical BID Qty: 22 0RF trazodone 50 mg tablet 50 mg PO BEDTIME oxycodone 30 mg tablet 15 mg PO Q6H PRN (Reason: Pain) duloxetine 30 mg capsule,delayed release(DR/EC) 30 mg PO DAILY Narcan 4 mg/actuation [place],Non-Aerosol 4 mg INTRANASAL Q3M PRN (Reason: Opioid Overdose) Rx Instructions: spray 1 dose into ONE nostril; alternate nostrils w each dose until help arrives bacitracin 500 unit/gram Ointment 1 applic topical BID Qty: 14 1RF calamine-zinc oxide 8-8 % Lotion 1 applic topical BID Qty: 177 0RF Stool Softener-Laxative 8.6-50 mg Tablet 1 tab PO DAILY Qty: 30 0RF Discharge Orders: Discharge ED (Routine); Ordered 05/22/23 Ordered By: Puneet Wang Referrals: Lesia Moy MD [Primary Care Provider] - 1-3 days Discharge Diet: Advance as tolerated Discharge Activity: Resume usual activity Patient Instructions: Constipation (ED) Coding Level of Care Code ED Supervisor [place] for Karlos Mathis
[2023-05-22] MEDS: lactulose oral liq 20 gm/30 mL UDC 30 GM PO (17:28)
[2023-05-22 17:36] VITALS: BP 125/96; PULSE 100; O2SAT 100
== END 2023-05-22 17:37 | disposition home or self-care (01) ==
PROVIDERS: Emergency Provider Emergency Medicine; PCP Family Medicine
DX: K59.00 Constipation, unspecified (principal); F17.290 Nicotine dependence, other tobacco product, uncomplicated
CPT/HCPCS: 74018; 99283

== ENCOUNTER 2023-05-26 18:03 | Emergency (ER) | payer OTHER, BC, MEDICAID, SELFPAY ==
[2023-05-26 18:17] VITALS: BP 112/70; PULSE 117; RESP 18; TEMP 37.4; O2SAT 98; BMI 33.0
--- NOTE | 2023-05-26 19:14 | W.ED.MALEGU ---
HPI - Male Genitourinary General: Chief complaint: Urogenital-Male Stated complaint: Cath Leaking\ABD Pain Time Seen by Provider: 05/26/23 18:37 History of Present Illness: 27-year-old male paraplegic here with 2 complaints. The first is that of a catheter that has begun to leak. He has a chronic indwelling Nguyen which she states is now 1 month old. He says it is began to leak urine around the catheter site. He states that he could not get into his doctor until the end of next week. He was also seen 3 days ago for abdominal pain. This is somewhat chronic in nature. He is on long-term opioid treatment for his condition. He has problems with constipation, and was diagnosed by x-ray and lab findings with constipation 3 days ago in the ER he states that he was given medication here, and then some to fill at the pharmacy neither which relieved his constipation he is having mainly left-sided and epigastric abdominal pain. He does state that he has been running a fever. Associated symptoms: Reports nausea; Deny vomiting Review of Systems Const: Reports: fever(s); Denies: chills Card: Denies: chest pain or palpitations Resp: Denies: dyspnea or productive cough GI: Reports: abdominal pain and nausea; Denies: vomiting : Reports: flank pain Musc: Reports: back pain PFSH ED PFSH: Medical History Liver fibrosis Paralysis of both lower limbs Urinary retention Surgical History Hx of decompressive lumbar laminectomy Family History Grandfather Cancer Bladder Sister Psychiatric illness Denies family history of Diabetes CAD (coronary artery disease) Clotting disorder Dementia Chronic kidney disease (CKD) Hypertension Stroke Social History Smoking and tobacco/nicotine status: current every day tobacco/nicotine user e-cigarettes E-Cigarette Details: vaporizer device and with nicotine E-cig/vape details: using about 6-7 months, smoked cigarettes PPD x 12-13 yrs, started vaping 6 Second hand smoke exposure: No Alcohol intake: never Substance/Drug Use: former Date of last use: year ago Caregiver/support person: Yes Lives independently: Yes Marital status: Single Highest education level completed: High School Graduate service: No Current occupational status: unemployed Current gender identity: Male Special michael needs: No Agree to transfusion: Yes Physical Exam Const: COMMON NORMALS: no acute distress HENMT: COMMON NORMALS: normocephalic HEAD & SCALP: normocephalic Eye: COMMON NORMALS: Equal, round and reactive pupils present and EOMs intact bilaterally PUPIL: Yes Equal, round and reactive pupils present Chest: CHEST: Yes Symmetrical chest wall rise Resp: COMMON NORMALS: normal respiratory effort and clear to auscultation bilaterally AUSCULTATION: clear to auscultation bilaterally Cardio: COMMON NORMALS: regular rate and regular rhythm RATE: regular rate RHYTHM: regular rhythm GI: PALPATION: Yes Tenderness to palpation present (GI) Details: LLQ and LUQ Skin: NARRATIVE SKIN EXAM: Chronic skin ulcerations to bilateral legs. largest to his left lateral leg ulceration measuring 5 cm in diameter. No active infection. Course Vital Signs: Vital signs: Vital Signs Temperature 99.3 F 05/26/23 18:17 Pulse Rate 100 05/26/23 23:21 Respiratory Rate 20 H 05/26/23 23:21 Blood Pressure 112/70 05/26/23 18:17 Pulse Oximetry 96 05/26/23 23:21 Oxygen Delivery Me thod Room Air 05/26/23 18:17 [facility] - Male Medical Decision Making 27-year-old male with multiple medical problems. He presents with abdominal pain. He was seen 3 days ago with constipation. He was sent home with MiraLAX. He notes that this has not improved his constipation. White blood cell count is 5. Hemoglobin is 10. CRP, though, is 100. Because of this, abdominal CT is performed. There is no acute intra-abdominal pathology. There is constipation still present without obstruction. There are postsurgical changes to the lower thoracic and lower lumbar spine. 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 With this amount of constipation, he will require bowel prep. He will also require ongoing lactulose therapy. His Nguyen catheter is also replaced. It is no longer leaking. We will prescribe these for home. To return for worsening symptoms. Follow-up with his doctor next week. Lab Data 05/26/23 20:19 05/26/23 19:08 Radiology Impressions Abdomen/Pelvis CT 05/26/23 20:02 IMPRESSION: 1. Extensive postsurgical changes along the posterior aspect of the lower thoracic and lower lumbar spine redemonstrated and similar. 2. Avascular necrosis of the left and right femoral heads with no overlying cortical collapse. 3. No bowel obstruction or inflammatory process associated with the bowel. Large stool bolus in the rectum. Acute Laboratory Results WBC 5.45 10^3/uL (3.29-11.43) 05/26/23 20:19 Corrected WBC Cancelled 05/26/23 19:08 RBC 4.57 10^6/uL (3.85-5.65) 05/26/23 20:19 Hgb 10.40 g/dL (11.27-16.99) L 05/26/23 20:19 Hct 36.3 % (37-53) L 05/26/23 20:19 MCV 79.4 fl (82-101) L 05/26/23 20:19 MCH 22.8 pg (27-33) L 05/26/23 20:19 MCHC 28.7 g/dL (30-55) L 05/26/23 20:19 RDW 16.9 % (12.1-15.1) H 05/26/23 20:19 Plt Count 224 10^3/cmm (157-399) 05/26/23 20:19 MPV 9.6 fL (7.4-10.4) 05/26/23 20:19 Gran % Cancelled 05/26/23 19:08 Neut % (Auto) 63.5 % 05/26/23 20:19 Lymph % (Auto) 23.7 % 05/26/23 20:19 Gregg % (Auto) 11.6 % 05/26/23 20:19 Eos % (Auto) 0.6 % 05/26/23 20:19 Baso % (Auto) 0.2 % 05/26/23 20:19 Neut # (Auto) 3.47 10^3/uL (1.8-7.7) 05/26/23 20:19 Lymph # (Auto) 1.3 10^3/uL (0.8-4.8) 05/26/23 20:19 Gregg # (Auto) 0.6 10^3/uL (0.2-0.9) 05/26/23 20:19 Eos # (Auto) 0.0 10^3/uL (0.0-0.8) 05/26/23 20:19 Baso # (Auto) 0.0 10^3/uL (0.0-0.1) 05/26/23 20:19 Absolute Gran (auto) Cancelled 05/26/23 19:08 Nucleated RBC % (auto) 0 % 05/26/23 20:19 Nucleated RBCs # 0.0 /100WBC 05/26/23 20:19 Sodium 135 mmol/L (136-145) L 05/26/23 19:08 Potassium 4.2 mmol/L (3.5-5.1) 05/26/23 19:08 Chloride 100 mmol/L (98-107) 05/26/23 19:08 Carbon Dioxide 22 mmol/L (22-29) 05/26/23 19:08 Anion Gap 17.2 (5-19) 05/26/23 19:08 BUN 9 mg/dL (6-20) 05/26/23 19:08 Creatinine 0.7 mg/dL (0.7-1.2) 05/26/23 19:08 GFR Calculation 133.3 mL/min (90-130) H 05/26/23 19:08 Glucose 80 mg/dL (65-115) 05/26/23 19:08 Calculated Osmolality 278 mOsm/kg (285-295) L 05/26/23 19:08 Calcium 9.0 mg/dL (8.5-10.5) 05/26/23 19:08 Total Bilirubin 0.6 mg/dL (0.15-1.2) 05/26/23 19:08 AST 30 U/L (0-40) 05/26/23 19:08 ALT 17 U/L (0-41) 05/26/23 19:08 Alkaline Phosphatase 77 U/L (40-130) 05/26/23 19:08 C-Reactive Protein 106.5 mg/L (0.0-4.9) H 05/26/23 19:08 Total Protein 7.4 g/dL (6.6-8.7) 05/26/23 19:08 Albumin 3.9 g/dL (3.5-5.2) 05/26/23 19:08 Globulin 3.5 g/dL (1.3-4.6) 05/26/23 19:08 Lipase 11 U/L (13-60) L 05/26/23 19:08 All radiology interpretation(s) finalized by discharge Discharge Plan Discharge Patient Disposition: Home Clinical Impression: Constipation, Problem with Nguyen catheter Condition: Stable Prescriptions: New lactulose 10 gram/15 mL solution 20 g PO BID Qty: 473 0RF No Action oxycodone 10 mg tablet 10 mg PO Q8H PRN (Reason: pain) 30 Days Qty: 90 0RF diazepam 5 mg tablet 5 mg PO .HS Qty: 30 0RF gabapentin 600 mg tablet 600 mg PO TID Qty: 90 1RF methocarbamol 750 mg tablet 750 mg PO BID Qty: 60 1RF mupirocin 2 % ointment 1 applic topical BID Qty: 22 0RF trazodone 50 mg tablet 50 mg PO BEDTIME oxycodone 30 mg tablet 15 mg PO Q6H PRN (Reason: Pain) duloxetine 30 mg capsule,delayed release(DR/EC) 30 mg PO DAILY Narcan 4 mg/actuation [place],Non-Aerosol 4 mg INTRANASAL Q3M PRN (Reason: Opioid Overdose) Rx Instructions: spray 1 dose into ONE nostril; alternate nostrils w each dose until help arrives bacitracin 500 unit/gram Ointment 1 applic topical BID Qty: 14 1RF calamine-zinc oxide 8-8 % Lotion 1 applic topical BID Qty: 177 0RF Stool Softener-Laxative 8.6-50 mg Tablet 1 tab PO DAILY Qty: 30 0RF Miralax 17 gram powder in packet 17 g PO BID Qty: 30 0RF Discharge Orders: Discharge ED (Routine); Ordered 05/26/23 Ordered By: Vadim Bloom Referrals: Lesia Moy MD [Primary Care Provider] - 4-7 days Patient Instructions: Constipation (ED), Opioid Safety, Pain Management Activity Restrictions/Additional Instructions: Take the medication you were dispensed when you get home, stay near a toilet for the next 12 hours or so. Use the medication prescribed at least daily for constipation prevention and maintenance. Coding Level of Care Code ED Mechanic General Operational Test for Karlos Mathis
[2023-05-26 19:43] LABS: Alanine Aminotransferase 17 U/L (0-41); Albumin Level 3.9 g/dL (3.5-5.2); Alkaline Phosphatase 77 U/L (40-130); Blood Urea Nitrogen 9 mg/dL (6-20); Carbon Dioxide 22 mmol/L (22-29); Chloride 100 mmol/L (98-107); Globulin 3.5 g/dL (1.3-4.6); Glomerular Filtration Rate 133.3 mL/min (90-130); Glucose 80 mg/dL (65-115); Lipase 11 U/L (13-60); Osmolality Calculated 278 mOsm/kg (285-295); Sodium 135 mmol/L (136-145); Total Bilirubin 0.6 mg/dL (0.15-1.2); Total Protein 7.4 g/dL (6.6-8.7)
[2023-05-26 19:44] LABS: Anion Gap 17.2 (5-19); Aspartate Amino Transferase 30 U/L (0-40); Potassium 4.2 mmol/L (3.5-5.1)
[2023-05-26 19:55] LABS: C Reactive Protein 106.5 mg/L (0.0-4.9)
--- NOTE | 2023-05-26 20:02 | CTR_ITS ---
PROCEDURE INFORMATION: Exam: CT Abdomen And Pelvis With Contrast Exam date and time: 05/26/2023 9:24 PM Age: 27 years old Clinical indication: Abdominal pain; Localized; Left lower quadrant (llq); Prior surgery; Surgery date: 6+ months; Surgery type: Lumbar laminectomy; Patient HX: C/O llq pain TECHNIQUE: Imaging protocol: Computed tomography of the abdomen and pelvis with contrast. Radiation optimization: All CT scans at this facility use at least one of these dose optimization techniques: automated exposure control; mA and/or kV adjustment per patient size (includes targeted exams where dose is matched to clinical indication); or iterative reconstruction. Contrast material: OMNI 350; Contrast volume: 100 ml; Contrast route: INTRAVENOUS (IV); REPORTING DATA: Count of CT and Cardiac NM exams in prior 12 months: This patient has received 3 known CTs and 0 known cardiac nuclear medicine studies in the 12 months prior to the current study. COMPARISON: CT abdomen pelvis w con* [id number] 02/18/2023 7:38 PM RADIATION DOSE METRICS: Total DLP (mGy-cm): 1045.77 FINDINGS: Liver: Normal. No mass. Gallbladder and bile ducts: Normal. No calcified stones. No ductal dilation. Pancreas: Normal. No ductal dilation. Spleen: Normal. No splenomegaly. Adrenal glands: Normal. No mass. Kidneys and ureters: Normal. No hydronephrosis. Stomach and bowel: No bowel obstruction or inflammatory process associated with the bowel. Large stool bolus in the rectum. Appendix: No evidence of appendicitis. Intraperitoneal space: Unremarkable. No free air. No significant fluid collection. Vasculature: Unremarkable. No abdominal aortic aneurysm. Lymph nodes: Unremarkable. No enlarged lymph nodes. Urinary bladder: There is a Nguyen catheter in the bladder. The bladder is decompressed. Reproductive: Unremarkable as visualized. Bones/joints: Extensive postsurgical changes along the posterior aspect of the lower thoracic and lower lumbar spine redemonstrated and similar. Avascular necrosis of the left and right femoral heads with no overlying cortical collapse. Soft tissues: Unremarkable. CT/CT abdomen pelvis w con* [id number] IMPRESSION: 1. Extensive postsurgical changes along the posterior aspect of the lower thoracic and lower lumbar spine redemonstrated and similar. 2. Avascular necrosis of the left and right femoral heads with no overlying cortical collapse. 3. No bowel obstruction or inflammatory process associated with the bowel. Large stool bolus in the rectum. Acute
[2023-05-26 20:23] LABS: Basophils % 0.2 %; Eosinophils % 0.6 %; Hematocrit 36.3 % (37-53); Lymphocytes # 1.3 10^3/uL (0.8-4.8); Lymphocytes % 23.7 %; Mean Corpuscular HGB Conc 28.7 g/dL (30-55); Mean Corpuscular Hemoglobin 22.8 pg (27-33); Mean Corpuscular Volume 79.4 fl (82-101); Mean Platelet Volume 9.6 fL (7.4-10.4); Monocytes # 0.6 10^3/uL (0.2-0.9); Monocytes % 11.6 %; Neutrophils # 3.47 10^3/uL (1.8-7.7); Neutrophils % 63.5 %; Nucleated Red Blood Cells % 0 %; Platelet Count 224 10^3/cmm (157-399); Red Blood Count 4.57 10^6/uL (3.85-5.65); Red Cell Distribution Width 16.9 % (12.1-15.1); White Blood Count 5.45 10^3/uL (3.29-11.43)
[2023-05-26] MEDS: iohexol 350 mg/mL 500 mL Btl (per mL) IV (21:26)
[2023-05-26] MEDS: ondansetron 2 mg/ML SDV 2 mL 4 MG IVP (22:54)
[2023-05-26] MEDS: ketorolac 30 mg/mL INJ IVP (22:56)
--- NOTE | 2023-05-26 22:58 | PC.NURSE ---
Pt sent home with 296mls of Mag citrate per MD order.
[2023-05-26 23:21] VITALS: PULSE 100; RESP 20; O2SAT 96
== END 2023-05-26 23:19 | disposition home or self-care (01) ==
PROVIDERS: Emergency Provider Emergency Medicine; PCP Family Medicine
DX: K59.00 Constipation, unspecified (principal); T83.038A Leakage of other urinary catheter, initial encounter; F17.210 Nicotine dependence, cigarettes, uncomplicated; F17.290 Nicotine dependence, other tobacco product, uncomplicated
CPT/HCPCS: 36415; 51702; 51798; 74177; 80053; 83690; 85025; 86140; 96374; 96375; 99285; J1885; J2405; Q9967

== ENCOUNTER 2023-06-13 13:50 | Emergency (ER) | payer OTHER, BC, MEDICAID, SELFPAY ==
[2023-06-13 14:06] VITALS: BP 138/80; PULSE 96; RESP 18; TEMP 36.6; O2SAT 98; BMI 33.0
--- NOTE | 2023-06-13 14:39 | ED_ITS ---
HPI - Male Genitourinary General: Chief complaint: Urogenital-Male Stated complaint: abd pain Time Seen by Provider: 06/13/23 14:05 Source: patient Mode of arrival: ambulatory Limitations: no limitations History of Present Illness: 27-year-old male has a history of paraly sis of both lower extremities he has chronic indwelling Nguyen states that he believes his Nguyen is blocked it has not been draining since yesterday he is having some suprapubic pain. Denies any fevers has not tried to flush the catheter denies any worsening proving factors. Associated symptoms: Deny dysuria, nausea or vomiting Review of Systems Const: Denies: fever(s) or chills ENMT: Denies: throat pain or dental pain Card: Denies: chest pain Resp: Denies: dyspnea GI: Denies: abdominal pain, nausea, vomiting or diarrhea : Reports: difficulty urinating; Denies: dysuria Musc: Denies: neck pain or back pain Skin/Breast: Denies: rash Neuro: Denies: headache(s) PFSH ED PFSH: Medical History Liver fibrosis Paralysis of both lower limbs Urinary retention Surgical History Hx of decompressive lumbar laminectomy Family History Grandfather Cancer Bladder Sister Psychiatric illness Denies family history of Diabetes CAD (coronary artery disease) Clotting disorder Dementia Chronic kidney disease (CKD) Hypertension Stroke Social History Smoking and tobacco/nicotine status: current every day tobacco/nicotine user e- cigarettes E-Cigarette Details: vaporizer device and with nicotine E-cig/vape details: using about 6-7 months, smoked cigarettes PPD x 12-13 yrs, started vaping 6 Second hand smoke exposure: No Alcohol intake: never Substance/Drug Use: former Date of last use: year ago Caregiver/support person: Yes Lives independently: Yes Marital status: Single Highest education level completed: High School Graduate service: No Current occupational status: unemployed Current gender identity: Male Special michael needs: No Agree to transfusion: Yes Physical Exam Const: COMMON NORMALS: patient oriented x3 HENMT: COMMON NORMALS: normocephalic and atraumatic HEAD & SCALP: normocephalic and atraumatic Eye: COMMON NORMALS: conjunctivae normal CONJUNCTIVA: Yes conjunctivae normal Chest: COMMONS NORMALS: normal inspection of the chest Resp: COMMON NORMALS: normal respiratory effort GI: COMMON NORMALS: Normal to inspection, nondistended, normoactive bowel sounds present, Soft to palpation and non-tender PALPATION: Yes Soft to palpation Extremity: COMMON NORMALS: normal to inspection Neuro: COMMON NORMALS: patient oriented x3 Psych: COMMON NORMALS: mental status grossly normal Skin: COMMON NORMALS: no rashes or lesions noted GENERAL SKIN EXAM: no rashes or lesions noted Course Vital Signs: Vital signs: Vital Signs Temperature 97.8 F 06/13/23 14:06 Pulse Rate 103 H 06/13/23 16:38 Respiratory Rate 18 06/13/23 14:06 Blood Pressure 116/71 06/13/23 16:38 Pulse Oximetry 99 06/13/23 16:38 Oxygen Delivery Me thod Room Air 06/13/23 15:14 MDM - Male Medical Decision Making Patient presents with blocked Nguyen did change his Nguyen out he has good urine output now and does have a UTI we will start him on antibiotics he is to follow- up with PCP and return if worsening. Medical Records I reviewed the patient's medical records. Lab Data I reviewed the patient's lab results. Laboratory Results Urine Color Dark yellow (Yellow) 06/13/23 15:15 Urine Appearance Hazy (CLEAR) A 06/13/23 15:15 Urine pH 5 (5-7) 06/13/23 15:15 Ur Specific [place] 1.025 (1.005-1.030) 06/13/23 15:15 Urine Protein Trace (Negative) 06/13/23 15:15 Urine Glucose (UA) Norm (Normal) 06/13/23 15:15 Urine Ketones Negative (Negative) 06/13/23 15:15 Urine Blood 3+ (Negative) H 06/13/23 15:15 Urine Nitrate Positive (Negative) H 06/13/23 15:15 Urine Bilirubin Neg (Negative) 06/13/23 15:15 Urine Urobilinogen Norm mg/dL (Negative) 06/13/23 15:15 Ur Leukocyte Esterase 1+ (Negative) H 06/13/23 15:15 Urine RBC 10-15 /hpf (0-2) H 06/13/23 15:15 Urine WBC 25-40 /hpf (0-5) H 06/13/23 15:15 Ur Squamous Epith Cells 0-4 /hpf (0-5) H 06/13/23 15:15 Amorphous Sediment Not Reportable 06/13/23 15:15 Urine Bacteria 2+ /hpf (NONE) H 06/13/23 15:15 Urine Mucus 1+ /hpf 06/13/23 15:15 No radiology studies performed this visit Discharge Plan Discharge Patient Disposition: Home Clinical Impression: Urinary tract infection Qualifiers: Urinary tract infection type: site unspecified Hematuria presence: without hematuria Qualified Code(s): N39.0 - Urinary tract infection, site not specified Complication, blocked Nguyen catheter Qualifiers: Encounter type: initial encounter Qualified Code(s): T83.091A - Other mechanical complication of indwelling urethral catheter, initial encounter Condition: Stable Prescriptions: New Macrobid 100 mg capsule 100 mg PO BID 7 Days Qty: 14 0RF Rx Instructions: must administer with a meal/food No Action oxycodone 10 mg tablet 10 mg PO Q8H PRN (Reason: pain) 30 Days Qty: 90 0RF diazepam 5 mg tablet 5 mg PO .HS Qty: 30 0RF gabapentin 600 mg tablet 600 mg PO TID Qty: 90 1RF methocarbamol 750 mg tablet 750 mg PO BID Qty: 60 1RF mupirocin 2 % ointment 1 applic topical BID Qty: 22 0RF trazodone 50 mg tablet 50 mg PO BEDTIME oxycodone 30 mg tablet 15 mg PO Q6H PRN (Reason: Pain) duloxetine 30 mg capsule,delayed release(DR/EC) 30 mg PO DAILY Narcan 4 mg/actuation [place],Non-Aerosol 4 mg INTRANASAL Q3M PRN (Reason: Opioid Overdose) Rx Instructions: spray 1 dose into ONE nostril; alternate nostrils w each dose until help arrives bacitracin 500 unit/gram Ointment 1 applic topical BID Qty: 14 1RF calamine-zinc oxide 8-8 % Lotion 1 applic topical BID Qty: 177 0RF Stool Softener-Laxative 8.6-50 mg Tablet 1 tab PO DAILY Qty: 30 0RF Miralax 17 gram powder in packet 17 g PO BID Qty: 30 0RF lactulose 10 gram/15 mL solution 20 g PO BID Qty: 473 0RF Discharge Orders: Discharge ED (Routine); Ordered 06/13/23 Ordered By: Puneet Wang Referrals: Lesia Moy MD [Primary Care Provider] - Discharge Diet: Advance as tolerated Discharge Activity: Resume usual activity Patient Instructions: Urinary Tract Infection in Men (ED), Nguyen Catheter Placement and Care (ED) Coding Level of Care Code ED Defensive Driving Instructor for Karlos Mathis
[2023-06-13 14:46] VITALS: BP 137/86; PULSE 113; O2SAT 96
[2023-06-13 15:14] VITALS: BP 139/85; PULSE 110; O2SAT 97
[2023-06-13 16:14] LABS: Add Urine Microscopic? YES; Bilirubin Urine Neg (Negative); Blood Urine 3+ (Negative); Glucose Urine UA Norm (Normal); Ketones Urine Negative (Negative); Leukocyte Esterase Urine 1+ (Negative); Nitrate Urine Positive (Negative); Protein Urine Trace (Negative); Specific Gravity, Urine 1.025 (1.005-1.030); Urine Appearance Hazy (CLEAR); Urine Color Dark Yellow (Yellow); Urobilinogen Urine Norm (Negative); pH Urine 5 (5-7)
[2023-06-13 16:27] LABS: Add Urine Culture? Yes; Bacteria Urine 2+ /hpf; Mucus Urine 1+ /hpf; Squamous Epithelial Cell Urine 0-4 /hpf (0-5); WBC Urine 25-40 /hpf (0-5)
[2023-06-13 16:38] VITALS: BP 116/71; PULSE 103; O2SAT 99
== END 2023-06-13 16:41 | disposition home or self-care (01) ==
PROVIDERS: Emergency Provider Emergency Medicine; PCP Family Medicine
DX: N39.0 Urinary tract infection, site not specified (principal); T83.091A Other mechanical complication of indwelling urethral catheter, initial encounter; Y73.1 Therapeutic (nonsurgical) and rehabilitative gastroenterology and urology devices associated with adverse incidents; F17.210 Nicotine dependence, cigarettes, uncomplicated; F17.290 Nicotine dependence, other tobacco product, uncomplicated
CPT/HCPCS: 51702; 81001; 87077; 87086; 87186; 99283

== ENCOUNTER 2023-06-29 19:42 | Emergency (ER) | payer OTHER, BC, MEDICAID, SELFPAY ==
[2023-06-29 19:46] VITALS: BP 141/73; PULSE 137; RESP 18; TEMP 36.9; O2SAT 97; BMI 33.0
--- NOTE | 2023-06-29 20:36 | ED_ITS ---
HPI - Wound/Laceration 2 General: Chief Complaint: Wound/Laceration Stated Complaint: wound on toe of left foot Time Seen by Provider: 06/29/23 19:51 History of Present Illness: Presents to the ER with worsening of his chronic wounds to his bilateral legs and buttock region. Patient currently thinks he is on doxycycline for these wounds. Patient was recently laid out of the [facility] at [facility] after he received 6 weeks of IV antibiotics for osteomyelitis secondary to these wounds. Patient has been out since the beginning in May. Patient has not followed up with anyone in the meantime. Patient does have a appointment with wound care on July 11. Patient says the wounds are just getting worse rates the pain at 8 out of 10 and said they are having yellowish discharge from the wounds on his hips. He also says he has been having a fever at nighttime 101-102. Patient's pulse upon arrival was 137 beats a minute and blood pressure was 141/73. Wounds were observed and they did not look like he had any type of barrier ointment, antibiotic cream, or thick padded type dressing on them. Review of Systems 2 General: Reports: 10 or more systems reviewed and unremarkable except in HPI and below PFSH ED 2 PFSH: Medical History Liver fibrosis Urinary retention Paralysis of both lower limbs Surgical History Hx of decompressive lumbar laminectomy Family History Grandfather Cancer Bladder Sister Psychiatric illness Denies family history of Diabetes CAD (coronary artery disease) Clotting disorder Dementia Chronic kidney disease (CKD) Hypertension Stroke Social History Smoking and tobacco/nicotine status: current every day tobacco/nicotine user e- cigarettes E-Cigarette Details: vaporizer device and with nicotine E-cig/vape details: using about 6-7 months, smoked cigarettes PPD x 12-13 yrs, started vaping 6 Second hand smoke exposure: No Alcohol intake: never Substance/Drug Use: former Date of last use: year ago Caregiver/support person: Yes Lives independently: Yes Marital status: Single Highest education level completed: High School Graduate service: No Current occupational status: unemployed Current gender identity: Male Special michael needs: No Agree to transfusion: Yes Physical Exam 2 Const: COMMON NORMALS: no acute distress, average body habitus, patient oriented x3, no limitations, healthy appearing, alert and well nourished Neck/C-Spine: COMMON NORMALS: no JVD Chest: COMMONS NORMALS: normal inspection of the chest and normal palpation of entire chest wall Resp: COMMON NORMALS: normal respiratory effort, No retractions, No use of accessory muscles and clear to auscultation bilaterally AUSCULTATION: clear to auscultation bilaterally Cardio: COMMON NORMALS: no JVD, regular rhythm, S1 normal heart sound present, S2 normal heart sound present, No gallops present (Cardio), No clicks present (Cardio), No murmurs present (Cardio) and No rub (Cardio); negative for regular rate (Tachycardic) RATE: abnormal rate (Tachycardic) RHYTHM: regular rhythm HEART SOUNDS: S1 normal heart sound present and S2 normal heart sound present GI: COMMON NORMALS: Normal to inspection, nondistended, normoactive bowel sounds present, Soft to palpation, non-tender, No hepatosplenomegaly present, no masses and no bruits PALPATION: Yes Soft to palpation and Yes No hepatosplenomegaly present Neuro: COMMON NORMALS: patient oriented x3 SENSORIUM/ORIENTATION: Yes alert Skin: NARRATIVE SKIN EXAM: Multiple wounds in various stages of healing on both lower extremities thighs, lower legs and feet, also on hips bilaterally with wounds across the posterior buttock region. None of these wounds have any odor or drainage noted to them. The wounds on his hip do have a dark eschar like center with them. There is minimal erythema and good beefy red granulation tissue noted. They do not appear to be overly infected at this time. Course 2 Vital Signs: Vital signs: Vital Signs Temperature 98.4 F 06/29/23 19:46 Pulse Rate 119 H 06/29/23 22:32 Respiratory Rate 16 06/29/23 21:44 Blood Pressure 119/66 06/29/23 22:32 Pulse Oximetry 98 06/29/23 22:32 Oxygen Delivery Me thod Room Air 06/29/23 19:46 MDM - Wound/Laceration Medical Decision Making Patient's wounds look good from a healing standpoint. Patient is slightly anemic with his hemoglobin of 8.6 and hematocrit 29.3. Patient's elevated CRP most consistent with his historical test. Patient's urine drug screen did show amphetamines benzos and marijuana. These results was discussed with the patient as well as his lack of using any type of barrier cream and padding over his wounds. It was also explained to him how the slide board and changing positions sheared off the new skin on these wounds. Patient was instructed to continue using all of his creams multiple times a day and antibiotic as directed and keep his appointment with his wound clinic on July 11. Differential Diagnosis Unlikely laceration, abscess, abrasion or avulsion of skin Medical Records I reviewed the patient's medical records. Lab Data I reviewed the patient's lab results. 06/29/23 21:18 06/29/23 21:18 Laboratory Results WBC 9.22 10^3/uL (3.29-11.43) 06/29/23 21:18 RBC 3.95 10^6/uL (3.85-5.65) 06/29/23 21:18 Hgb 8.60 g/dL (11.27-16.99) L 06/29/23 21:18 Hct 29.3 % (37-53) L 06/29/23 21:18 MCV 74.2 fl (82-101) L 06/29/23 21:18 MCH 21.8 pg (27-33) L 06/29/23 21:18 MCHC 29.4 g/dL (30-55) L 06/29/23 21:18 RDW 17.6 % (12.1-15.1) H 06/29/23 21:18 Plt Count 517 10^3/cmm (157-399) H 06/29/23 21:18 MPV 8.0 fL (7.4-10.4) 06/29/23 21:18 Neut % (Auto) 74.3 % 06/29/23 21:18 Lymph % (Auto) 15.5 % 06/29/23 21:18 [place] % (Auto) 7.5 % 06/29/23 21:18 Eos % (Auto) 2.0 % 06/29/23 21:18 Baso % (Auto) 0.2 % 06/29/23: Neut # (Auto) 6.85 10^3/uL (1.8-7.7) 06/29/23 21:18 Lymph # (Auto) 1.4 10^3/uL (0.8-4.8) 06/29/23 21:18 [place] # (Auto) 0.7 10^3/uL (0.2-0.9) 06/29/23 21:18 Eos # (Auto) 0.2 10^3/uL (0.0-0.8) 06/29/23 21:18 Baso # (Auto) 0.0 10^3/uL (0.0-0.1) 06/29/23 21:18 Nucleated RBC % (auto) 0 % 06/29/23 21:18 Nucleated RBCs # 0.0 /100WBC 06/29/23 21:18 Sodium 138 mmol/L (136-145) 06/29/23 21:18 Potassium 4.0 mmol/L (3.5-5.1) 06/29/23 21:18 Chloride 101 mmol/L (98-107) 06/29/23 21:18 Carbon Dioxide 24 mmol/L (22-29) 06/29/23 21:18 Anion Gap 17.0 (5-19) 06/29/23 21:18 BUN 8 mg/dL (6-20) 06/29/23 21:18 Creatinine 0.6 mg/dL (0.7-1.2) L 06/29/23 21:18 GFR Calculation 159.3 mL/min (90-130) H 06/29/23 21:18 Glucose 123 mg/dL (65-115) H 06/29/23 21:18 Calculated Osmolality 286 mOsm/kg (285-295) 06/29/23 21:18 Lactic Acid 2.4 mmol/L (0.5-2.2) H 06/29/23 21:18 Calcium 8.8 mg/dL (8.5-10.5) 06/29/23 21:18 Total Bilirubin 0.2 mg/dL (0.15-1.2) 06/29/23 21:18 AST 24 U/L (0-40) 06/29/23 21:18 ALT 16 U/L (0-41) 06/29/23 21:18 Alkaline Phosphatase 69 U/L (40-130) 06/29/23 21:18 C-Reactive Protein 125.5 mg/L (0.0-4.9) H 06/29/23 21:18 Total Protein 7.0 g/dL (6.6-8.7) 06/29/23 21:18 Albumin 3.4 g/dL (3.5-5.2) L 06/29/23 21:18 Globulin 3.6 g/dL (1.3-4.6) 06/29/23 21:18 Procalcitonin 0.05 ng/mL (0-0.5) 06/29/23 21:18 Urine Color Light yellow (Yellow) 06/29/23 21:00 Urine Appearance Clear (CLEAR) 06/29/23 21:00 Urine pH 6 (5-7) 06/29/23 21:00 Ur Specific Alexis 1.005 (1.005-1.030) 06/29/23 21:00 Urine Protein Neg (Negative) 06/29/23 21:00 Urine Glucose (UA) Norm (Normal) 06/29/23 21:00 Urine Ketones Negative (Negative) 06/29/23 21:00 Urine Blood Neg (Negative) 06/29/23 21:00 Urine Nitrate Negative (Negative) 06/29/23 21:00 Urine Bilirubin Neg (Negative) 06/29/23 21:00 Urine Urobilinogen Neg mg/dL (Negative) 06/29/23 21:00 Ur Leukocyte Esterase Negative (Negative) 06/29/23 21:00 Urine Opiates Screen Negative ng/mL (Negative) 06/29/23 21:00 Ur Barbiturates Screen Negative ng/mL (Negative) 06/29/23 21:00 Ur Phencyclidine Scrn Negative ng/mL (Negative) 06/29/23 21:00 Ur Amphetamines Screen Positive ng/mL (Negative) H 06/29/23 21:00 U Benzodiazepines Scrn Positive ng/mL (Negative) H 06/29/23 21:00 Urine Cocaine Screen Negative ng/mL (Negative) 06/29/23 21:00 U Marijuana (THC) Screen Positive ng/mL (Negative) H 06/29/23 21:00 All radiology interpretation(s) finalized by discharge Discharge Plan Discharge Patient Disposition: Home Clinical Impression: Chronic wound of extremity, Amphetamine use Condition: Stable Prescriptions: No Action oxycodone 10 mg tablet 10 mg PO Q8H PRN (Reason: pain) 30 Days Qty: 90 0RF diazepam 5 mg tablet 5 mg PO .HS Qty: 30 0RF methocarbamol 750 mg tablet 750 mg PO BID Qty: 60 1RF gabapentin 600 mg tablet 600 mg PO TID Qty: 90 1RF mupirocin 2 % ointment 1 applic topical BID Qty: 22 0RF trazodone 50 mg tablet 50 mg PO BEDTIME oxycodone 30 mg tablet 15 mg PO Q6H PRN (Reason: Pain) duloxetine 30 mg capsule,delayed release(DR/EC) 30 mg PO DAILY Narcan 4 mg/actuation Early,Non-Aerosol 4 mg INTRANASAL Q3M PRN (Reason: Opioid Overdose) Rx Instructions: spray 1 dose into ONE nostril; alternate nostrils w each dose until help arrives bacitracin 500 unit/gram Ointment 1 applic topical BID Qty: 14 1RF calamine-zinc oxide 8-8 % Lotion 1 applic topical BID Qty: 177 0RF Stool Softener-Laxative 8.6-50 mg Tablet 1 tab PO DAILY Qty: 30 0RF Miralax 17 gram powder in packet 17 g PO BID Qty: 30 0RF lactulose 10 gram/15 mL solution 20 g PO BID Qty: 473 0RF Discharge Orders: Discharge ED (Routine); Ordered 06/29/23 Ordered By: Justin Galindo Referrals: Lesia Moy MD [Primary Care Provider] - 1 week Patient Instructions: Chronic Wound Care (ED), Methamphetamine Use Disorder (ED) Activity Restrictions/Additional Instructions: Please start using your barrier creams 3 or 4 times a day as directed per the prescription. Please keep your wounds covered with a bulky dressing. Please limit the amount of movement you do as friction will disrupt the new skin. Please continue your daily antibiotic and keep your appointment that is already made on July 11 for wound care. Please stop using amphetamines/methamphetamines as this does not help the healing process. Coding Level of Care Code ED Peanut Blancher for Karlos Mathis
[2023-06-29 21:08] LABS: Add Urine Microscopic? NO; Charge for UA Resulting for Rev
[2023-06-29] MEDS: sodium chloride 0.9% 1,000 ML 999 ML IV (21:08)
[2023-06-29] MEDS: ondansetron 2 mg/ML SDV 2 mL 4 MG IVP (21:09)
[2023-06-29 21:11] LABS: Bilirubin Urine Neg (Negative); Blood Urine Neg (Negative); Glucose Urine UA Norm (Normal); Ketones Urine Negative (Negative); Leukocyte Esterase Urine Negative (Negative); Nitrate Urine Negative (Negative); Protein Urine Neg (Negative); Specific Gravity, Urine 1.005 (1.005-1.030); Urine Appearance Clear (CLEAR); Urine Color Light yellow (Yellow); Urobilinogen Urine Neg (Negative); pH Urine 6 (5-7)
[2023-06-29] MEDS: ketorolac 30 mg/mL INJ IVP (21:11)
[2023-06-29 21:13] VITALS: PULSE 123; O2SAT 98
[2023-06-29 21:18] LABS: Amphetamines Screen Urine Positive (Negative); Barbiturates Screen Urine Negative (Negative); Benzodiazepines Screen Urine Positive (Negative); Cocaine Screen Urine Negative (Negative); Opiate Screen Urine Negative (Negative); PCP Screen Urine Negative (Negative); THC Screen Urine Positive (Negative)
[2023-06-29 21:44] VITALS: BP 131/82; PULSE 78; RESP 16; O2SAT 96
[2023-06-29 21:49] LABS: Basophils % 0.2 %; Eosinophils # 0.2 10^3/uL (0.0-0.8); Hematocrit 29.3 % (37-53); Lymphocytes # 1.4 10^3/uL (0.8-4.8); Lymphocytes % 15.5 %; Mean Corpuscular HGB Conc 29.4 g/dL (30-55); Mean Corpuscular Hemoglobin 21.8 pg (27-33); Mean Corpuscular Volume 74.2 fl (82-101); Monocytes # 0.7 10^3/uL (0.2-0.9); Monocytes % 7.5 %; Neutrophils # 6.85 10^3/uL (1.8-7.7); Neutrophils % 74.3 %; Nucleated Red Blood Cells % 0 %; Platelet Count 517 10^3/cmm (157-399); Red Blood Count 3.95 10^6/uL (3.85-5.65); Red Cell Distribution Width 17.6 % (12.1-15.1); White Blood Count 9.22 10^3/uL (3.29-11.43)
[2023-06-29 22:06] LABS: Lactic Sepsis W/Reflex 2.4 mmol/L (0.5-2.2)
[2023-06-29 22:07] LABS: Alanine Aminotransferase 16 U/L (0-41); Albumin Level 3.4 g/dL (3.5-5.2); Alkaline Phosphatase 69 U/L (40-130); Aspartate Amino Transferase 24 U/L (0-40); Blood Urea Nitrogen 8 mg/dL (6-20); C Reactive Protein 125.5 mg/L (0.0-4.9); Calcium 8.8 mg/dL (8.5-10.5); Carbon Dioxide 24 mmol/L (22-29); Chloride 101 mmol/L (98-107); Globulin 3.6 g/dL (1.3-4.6); Glomerular Filtration Rate 159.3 mL/min (90-130); Glucose 123 mg/dL (65-115); Osmolality Calculated 286 mOsm/kg (285-295); Sodium 138 mmol/L (136-145); Total Bilirubin 0.2 mg/dL (0.15-1.2)
[2023-06-29 22:13] LABS: Procalcitonin 0.05 ng/mL (0-0.5)
[2023-06-29] MEDS: TRAMadol 50 mg Tablet PO (22:30)
[2023-06-29 22:32] VITALS: BP 119/66; PULSE 119; O2SAT 98
[2023-06-29 23:34] LABS: Reflex Lactate Order REFLEX LACTIC ORDERD
== END 2023-06-29 23:26 | disposition home or self-care (01) ==
PROVIDERS: Emergency Provider Emergency Medicine; PCP Family Medicine
DX: S71.102A Unspecified open wound, left thigh, initial encounter (principal); S71.101A Unspecified open wound, right thigh, initial encounter; S81.802A Unspecified open wound, left lower leg, initial encounter; S81.801A Unspecified open wound, right lower leg, initial encounter; S91.302A Unspecified open wound, left foot, initial encounter; S91.301A Unspecified open wound, right foot, initial encounter; S71.002A Unspecified open wound, left hip, initial encounter; S71.001A Unspecified open wound, right hip, initial encounter; S31.829A Unspecified open wound of left buttock, initial encounter; S31.819A Unspecified open wound of right buttock, initial encounter; F17.290 Nicotine dependence, other tobacco product, uncomplicated; F15.90 Other stimulant use, unspecified, uncomplicated; X58.XXXA Exposure to other specified factors, initial encounter
CPT/HCPCS: 36415; 80053; 80306; 81003; 83605; 84145; 85025; 86140; 87040; 96361; 96374; 96375; 99284; J1885; J2405; J7030